=== PATIENT | female | born 1995 | race Caucasian/White ===

== ENCOUNTER 2020-10-10 21:13 | Inpatient (IN) ==
[2020-10-10] MEDS ORDERED: LACTATED RINGER'S 1,000 ML IV SCH ×2 (21:45→22:45)
--- NOTE | 2020-10-10 21:59 | History & Physical Report ---
Date of Service October 10, 2020 Assessment & Plan (1) premature rupture of membranes: Plan: 25-year-old G1, P0 at 36 weeks and 4 days of gestation presenting with premature rupture of membranes, not in labor, breech presentation which is high in pelvis, unengaged, Vital signs stable afebrile, heart rate reassuring, GBS unknown, Discussed with the patient about risk of breech vaginal delivery including but not limited to cervical spine injury, asphyxia, even . Recommended primary . Discussed risk of as major surgery, including but not limited to bleeding, infection, injury to surrounding organs, like bowels, b ladder, ureter, DVT, PE, scarring and adhesion. Patient understands all and signed an informed consent. All questions were answered. Patient will be prepared for primary and delivery of breech . (2) Labor presentation, breech: History of Present Illness Chief Complaint: Leakage of fluids Primary Care Provider: NO PCP Patient is a 25-year-old G1, P0 at 36 weeks and 4 days of gestation who felt a gush of leakage of fluid at 7:30 PM last night. She stood up and kept trickling more clear fluid since then. She denies contractions, vaginal bleeding, abdominal pain, fever chills, nausea vomiting, headaches or change in her vision. She reports good movements. Her has been uncomplicated except, 1) rubella nonimmune, 2) abnormal Glucola, 50 g screening test was elevated at 140 mg/dL and 3-hour OGTT had 1 elevated number. She has not had growth scan and was scheduled for next week. 3) GBS unknown, collected yesterday, 4) Breech presentation Allergies Allergy/AdvReac Type Severity Reaction Status Date / Time No Known Allergies Allergy Verified 10/10/20 21:29 Home Medications Medication Instructions Recorded Confirmed Type prenat.vits,carlos,[id number] 1 tab PO DAILY 10/10/20 10/10/20 History Patient History Surgical History Hx of cholecystectomy [place] teeth removed Social History Smoking Status: Never smoker Hx Alcohol Use: No Hx Substance Use: No Preferred Language: Italian Communication Ability: Effective Transitions Manager Rn Required: No Beliefs That Will Affect Care: None marital status: Current Living Situation: Spouse Other Information That Helps Us Care for You: No Feels Safe at Home: Yes Safety Concerns: Feels Safe At This Time Assistive Devices: None 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 History Patient denies any history of STDs including chlamydia gonorrhea or herpes Review of Systems as per Subjective / HPI Physical Exam Constitutional: WD/WN, vitals as above well developed and well nourished Gastrointestinal (Abdomen): normal bowel sounds, soft, nontender, no hepatosplenomegaly (Gravid) Genitourinary: normal external appearance (Grossly ruptured, clear amniotic fluid, nitrazine positive) OB Exam Abdomen: + breech (Confirmed with bedside ultrasound, deangelo breech) Manual OB Exam: + cervical dilation 1 cm, + cervical effacement 50% and + station high OB Exam Monitor Tracing: + external uterine monitor used and + category I Results & Data ([facility]) Vital Signs (Past 12 Hours) Vital Signs Temp Pulse Resp BP 10/10/20 21:35 100 H 126/78 10/10/20 21:34 97 H 144/92 H 10/10/20 21:33 110 H 135/101 H 10/10/20 21:23 36.8 C 107 H 18 151/91 H
[2020-10-10] MEDS ORDERED: AZITHROMYCIN 500 MG in DEXTROSE 5% 250 ML IV SCH (22:00)
[2020-10-10] MEDS ORDERED: ceFAZolin 2000MG 2,000 MG/15 ML SYR IV SCH (22:00)
[2020-10-10] MEDS ORDERED: MoRPHine SULFATE PF 1 MG/ML 10 ML AMP/VIAL ONE (22:08)
[2020-10-10] MEDS ORDERED: CITRIC ACID/SODIUM CITRATE 15 ML UDC ONE (22:22)
--- NOTE | 2020-10-10 22:23 | Anesthesiology Consultation ---
Date of Service October 10, 2020 Assessment & Plan Chart Review Chart Review: Acceptable Risk for Surgery Consults Requested none History Surgery Operation Date: 10/10/20 23:00 Proposed Procedures p Section in LD - Mikie Mota MD Height/Weight Height: 5 ft 6 in Weight: 101.605 kg Allergies Allergy/AdvReac Type Severity Reaction Status Date / Time No Known Allergies Allergy Verified 10/10/20 21:29 Medications Home Medications Medication Instructions Recorded Confirmed Last Taken prenat.vits,carlos,hfj-mesv-mrthf 1 tab PO DAILY 10/10/20 10/10/20 10/09/20 08:00 Active Medications Generic Name Dose Route Start Last Admin Trade Name Freq PRN Reason Stop Dose Admin Lactated Ringer's 1,000 mls @ 125 mls/hr 10/10/20 22:45 10/10/20 21:56 Lr IV 11/09/20 22:44 999 mls/hr .Q8H ERNESTINE Administration Azithromycin 500 mg/ Dextrose 255 mls @ 127.5 mls/hr 10/10/20 22:00 10/10/20 22:13 IV 10/10/20 23:59 127.5 mls/hr PREOP ERNESTINE Administration NPO Date Last Intake of Fluids: 10/10/20 Time Last Intake of Fluids: 19:00 Date Last Intake of Solids: 10/10/20 Time Last Intake of Solids: 19:00 Past Surgical History Surgical History Hx of cholecystectomy [place] teeth removed Social History Smoking Status: Never smoker Hx Alcohol Use: No Hx Substance Use: No Physical Exam Vital Signs Last Vital Signs Temp 36.8 C 10/10/20 21:40 Pulse 100 H 10/10/20 21:35 Resp 18 10/10/20 21:40 BP 126/78 10/10/20 21:35
[2020-10-10] MEDS ORDERED: NALBUPHINE HCL INJ 10 MG/ML AMP IV PRN (22:25)
[2020-10-10] MEDS ORDERED: NALOXONE HCL 1 MG in SODIUM CHLORIDE 0.9% 1000ML 1,000 ML IV PRN (22:25)
[2020-10-10] MEDS ORDERED: NALOXONE HCL 0.4 MG/1 ML VIAL/CARP IV PRN (22:25)
[2020-10-10] MEDS ORDERED: diphenhydrAMINE 50 MG/ML VIAL IV PRN (22:25)
[2020-10-10] MEDS ORDERED: HYDROmorphone INJ 0.5 MG/0.5 ML SYR IV PRN (22:25)
[2020-10-10] MEDS ORDERED: MoRPHine SULFATE PF 1 MG/ML 10 ML AMP/VIAL INT SPINAL ONE (22:25)
[2020-10-10] MEDS ORDERED: MoRPHine SULFATE 2 MG/ML CARP IV PRN (22:25)
[2020-10-10] MEDS ORDERED: ONDANSETRON INJ 2 MG/ML 2 ML VIAL IV PRN (22:25)
[2020-10-10] MEDS ORDERED: LACTATED RINGER'S 500 ML IV PRN (22:25)
[2020-10-10] MEDS ORDERED: ePHEDrine sulfate 50 MG/ML AMP IV PRN (22:25)
[2020-10-10] MEDS ORDERED: NALOXONE HCL 0.08 MG in SYRINGE 1.8 ML IV PRN (22:25)
[2020-10-10] MEDS ORDERED: METOCLOPRAMIDE HCL 10 MG in SODIUM CHLORIDE 0.9% 50 ML IV PRN (22:25)
[2020-10-10] MEDS ORDERED: MEPERIDINE HCL 25 MG/ML CARP/VIAL IV PRN (22:25)
[2020-10-10] MEDS ORDERED: PROMETHAZINE HCL 12.5 MG in SODIUM CHLORIDE 0.9% 50 ML IV PRN (22:25)
[2020-10-10 22:29] LABS: Basophils # (auto) 0.04 K/uL (0-0.2); Basophils % (auto) 0.2 %; Eosinophils # (auto) 1.39 K/uL (0-0.5); Eosinophils % (auto) 7.7 %; Hematocrit (blood only) 37.8 % (37-47); Immature Granulocytes # (auto) 0.16 K/uL (0.00-0.02); Immature Granulocytes % (auto) 0.9 %; Lymphocytes # (auto) 2.94 K/uL (1.2-3.4); Lymphocytes % (auto) 16.4 %; Mean Corpuscular Hemoglobin 32.3 pg (25-34); Mean Corpuscular Hgb Conc 34.4 g/dL (32-36); Mean Corpuscular Volume 93.8 fL (80-100); Mean Platelet Volume 9.6 fL (7.4-10.4); Monocytes # (auto) 0.94 K/uL (0.11-0.59); Monocytes % (auto) 5.2 %; Neutrophils # (auto) 12.51 K/uL (1.4-6.5); Neutrophils % (auto) 69.6 %; Platelet Count 260 K/uL (130-400); RDW Coefficient of Variation 13.4 % (11.5-14.5); RDW Standard Deviation 46.4 fL (36.4-46.3); Red Blood Count 4.03 M/uL (4.2-5.4); White Blood Count 17.98 K/uL (4.8-10.8)
[2020-10-10] MEDS ORDERED: NO NARCOTICS OR SEDATIVES SCH (22:30)
[2020-10-10] MEDS ORDERED: SODIUM CHLORIDE 0.9% 1000ML 1,000 ML IV SCH (22:30)
[2020-10-10] MEDS ORDERED: DC INTRASPINAL MORPHINE SCH (22:30)
[2020-10-10 22:46] LABS: Albumin Level 2.7 gm/dl (3.4-5.0); BUN Creatinine Ratio 13.9 (10-20); Calcium 9.3 mg/dl (8.5-10.1); Creatinine Clr Calc Pharmacy 125.5 ml/min; Est GFR (African American) 115.4 ml/min; Est GFR (Non-African American) 99.5 ml/min; Potassium 3.8 mmol/L (3.5-5.1)
[2020-10-10 22:49] LABS: Albumin Globulin Ratio 0.7 (0.9-2); Bilirubin,Total 0.2 mg/dl (0.2-1); Globulin 3.9 gm/dl (2.5-4.0); Total Protein 6.6 gm/dl (6.4-8.2)
[2020-10-11] MEDS ORDERED: PHENYLEPHRINE HCL 10 MG/ML VIAL ONE (00:16)
[2020-10-11] MEDS ORDERED: ePHEDrine sulfate 50 MG/ML AMP ONE (00:16)
[2020-10-11] MEDS ORDERED: OXYTOCIN 10 UNITS/ML VIAL ONE (00:17)
[2020-10-11] MEDS ORDERED: BENZOCAINE 20% AER SPR 82.5 GM CAN EXT PRN (00:29)
[2020-10-11] MEDS ORDERED: DIPHTHERIA/TETANUS/PERTUSSIS 0.5 ML SYR/VIAL IM ONE (00:29)
[2020-10-11] MEDS ORDERED: SENNA 8.6 MG TAB PO PRN (00:29)
[2020-10-11] MEDS ORDERED: MAGNESIUM HYDROXIDE SUSP 30 ML UDC PO PRN (00:29)
[2020-10-11] MEDS ORDERED: HYDROCORTISONE ACETATE 25 MG SUPP PR PRN (00:29)
[2020-10-11] MEDS ORDERED: SUPERCREAM 0.870% 15 GM JAR EXT PRN (00:29)
[2020-10-11] MEDS ORDERED: MEASLES, MUMPS & RUBELLA VIRUS VIAL SQ ONE (00:29)
--- NOTE | 2020-10-11 00:29 | Post Operative Brief Note ---
Immediate Post Op Note v1 Date of Surgery October 11, 2020 Pre & Post Diagnosis Operation Date: 10/10/20 23:00 Pre-Op Diagnosis: 1. Martin breech 2. premature rupture of membranes Post-Op Diagnosis: Same as preop I identified the patient and participated in the time-out.: Yes Procedure Operation Date: 10/10/20 23:00 Actual Procedures p Section in OR(Not Applicable) - Mikie Mota MD Surgeon Mikie Mota MD Instrumentation Specialist Nani Marie RN Estimated Blood Loss 600 Findings Consistent with Post-Op Diagnosis Drains Jaramillo Catheter (Inserted after spinal, anesthesia to monitor) Complications none Disposition Accompanied Patient To Recovery: Yes
[2020-10-11] MEDS: KETOROLAC 30 MG/ML VIAL IV PRN ×3 (00:37→16:21)
[2020-10-11] MEDS ORDERED: GELATIN SPONGE SZ 100 ONE (01:55)
[2020-10-11] MEDS: OXYTOCIN 20 UNITS in LACTATED RINGER'S 1,000 ML IV SCH ×2 (02:40→10:59)
--- NOTE | 2020-10-11 04:49 | Operative Report (OR) ---
DATE OF SURGERY: 10/10/2020. PREOPERATIVE DIAGNOSIS: The patient is a 25-year-old G1, P0 at 36 weeks and 4 days of gestation presenting to labor and delivery with premature rupture of membranes and deangelo breech presentation. POSTOPERATIVE DIAGNOSIS: The patient is a 25-year-old G1, P0 at 36 weeks and 4 days of gestation presenting to labor and delivery with premature rupture of membranes and deangelo breech presentation. PROCEDURE: Primary low transverse with Pfannenstiel skin incision and delivery of a breech . SURGEON: Mikie Mota MD E COMMERCE SOLUTION ARCHITECT: Nani Marie RN ESTIMATED BLOOD LOSS: 600. DRAINS: Jaramillo catheter drained 300 mL of clear urine. ANESTHESIA: Spinal. ANESTHESIOLOGIST: Dr. Benítez. COMPLICATIONS: None. FINDINGS: Baby was a viable female delivered at 2332 hours. Apgars were 8/9, weight was 3066 grams. Baby was in deangelo breech presentation. Maternal findings, normal uterus, fallopian tubes, and ovaries. DETAILS OF SURGERY: The patient was taken to the operating room where spinal anesthesia was given without difficulty. She was placed in dorsal supine position with a leftward tilt. She was prepared and draped in the usual sterile fashion. Pfannenstiel skin incision was made, carried through to the underlying layer of fascia with the Bovie. Fascia was incised in the midline and incision was extended laterally with the help of Webber scissors. Lower aspect of the fascial incision was grasped with 2 Viania clamps and elevated. The underlying rectus muscles were dissected off sharply and bluntly with fingers and Webber scissors. Upper aspect of the fascial incision was then grasped with two Ivania clamps, elevated, and the underlying rectus muscles were dissected off sharply with Webber scissors and bluntly with fingers. Rectus muscles were in the midline. The peritoneum was then entered bluntly with fingers. Peritoneal incision was extended superiorly and inferiorly with good visualization of the bladder. An Biju abdominal retractor was placed into the abdomen to retract the abdominal wall. Vesicouterine peritoneum was identified, grasped with pickups, entered sharply with Metzenbaum scissors. Bladder flap was created digitally and bladder blade was inserted. Lower uterine segment was incised in a transverse fashion and the incision was extended laterally with bandage scissors. Membranes were ruptured, clear fluid was obtained. Baby was breech, buttocks were brought to the incision and delivered without difficulty and then legs were delivered and then arms in flexion position and the head without difficulty. Mouth and nose were suctioned. Cord was clamped x2 and cut at 1- minute delay. Baby was handed to waiting carpenter refrigerator. Cord blood was obtained. Placenta was delivered manually as intact and complete. Uterus was exteriorized and cleared of all clots and debris. The uterine incision was repaired with 0 Vicryl in a running locked fashion. Second imbricating layer was placed with another 0 Vicryl in a running locked fashion. Excellent hemostasis was achieved. Cul-de-sac was irrigated with warm normal saline and suctioned and normal cul-de-sac and peritoneal surfaces, ovaries, fallopian tubes, and bowels and omentum were seen. Uterus was returned to the abdomen. Pelvis was irrigated with warm normal saline and suctioned. Uterus incision was checked to be hemostatic again. Then parietal peritoneum and the rectus muscles were reapproximated with 3-0 Vicryl in a running fashion. The fascia and rectus muscles were hemostatic. Rectus fascia was reapproximated with 0 Vicryl in a running fashion. Subcuticular fat tissue was brought together with 2-0 Vicryl in a running fashion. Skin was closed with 4-0 Monocryl in a subcuticular fashion. The patient tolerated the procedure well. Sponge, lap, needle count was correct x3. No complications happened. I was present during whole procedure. She was given 500 mg of azithromycin and 2 g of cefazolin before surgery. She was taken to recovery room in stable condition. Job ID: [id number] [facility]
[2020-10-11] MEDS ORDERED: CITRIC ACID/SODIUM CITRATE 15 ML UDC PO SCH (06:00)
--- NOTE | 2020-10-11 06:41 | Anesthesiology Progress Note ---
Date of Service October 11, 2020 Anesthesia Post Procedure Vital Signs Vital Signs: Temp Pulse Pulse Resp BP BP Pulse Ox 10/11/20 06:10 16 97 10/11/20 05:30 16 96 10/11/20 04:35 16 97 10/11/20 03:30 16 94 10/11/20 02:45 36.4 C L 96 H 16 112/76 98 10/11/20 02:34 95 H 98 10/11/20 02:29 94 H 130/65 96 10/11/20 02:28 36.5 C 18 10/11/20 02:24 98 H 100 10/11/20 02:19 95 H 97 10/11/20 02:14 99 H 99 10/11/20 02:09 105 H 97 10/11/20 02:04 108 H 96 10/11/20 02:02 109 H 129/71 10/11/20 02:00 108 H 202/72 H 10/11/20 01:59 108 H 97 10/11/20 01:58 18 10/11/20 01:56 102 H 93 10/11/20 01:54 113 H 96 10/11/20 01:49 106 H 96 10/11/20 01:44 109 H 97 10/11/20 01:39 96 H 98 10/11/20 01:34 98 H 96 10/11/20 01:29 107 H 97 10/11/20 01:28 100 H 18 130/60 10/11/20 01:24 100 H 96 10/11/20 01:21 102 H 94 10/11/20 01:19 96 H 95 10/11/20 01:18 94 H 18 124/65 10/11/20 01:15 106 H 94 10/11/20 01:14 103 H 95 10/11/20 01:09 107 H 98 10/11/20 01:08 102 H 18 119/55 L 10/11/20 01:04 100 H 96 10/11/20 00:59 101 H 130/59 L 98 10/11/20 00:58 18 10/11/20 00:54 107 H 98 10/11/20 00:49 102 H 112/58 L 95 10/11/20 00:48 97 H 18 90 10/11/20 00:44 94 H 98 10/11/20 00:39 92 H 97 10/11/20 00:38 106 H 18 119/78 10/11/20 00:34 90 100 10/11/20 00:33 36.5 C 10/11/20 00:29 85 98 10/11/20 00:28 79 127/70 10/10/20 21:40 36.8 C 18 10/10/20 21:35 100 H 126/78 10/10/20 21:34 97 H 144/92 H 10/10/20 21:33 110 H 135/101 H 10/10/20 21:23 36.8 C 107 H 18 151/91 H Pain Intensity Bilateral Lower Abdomen: Pain Intensity: 2 Transfer of Care Handoff Completed per policy Notes Mental Status: alert / awake / arousable and participated in evaluation Patient Amnestic to Procedure: Yes Nausea / Vomiting: adequately controlled Pain: adequately controlled Airway Patency, RR, SpO2: stable & adequate BP & HR: stable & adequate Hydration State: stable & adequate Neuraxial Anesthesia: was administered and sensory block resolved Anesthetic Complications: no major complications apparent
[2020-10-11 08:09] LABS: Basophils # (auto) 0.02 K/uL (0-0.2); Basophils % (auto) 0.1 %; Eosinophils # (auto) 0.38 K/uL (0-0.5); Eosinophils % (auto) 1.8 %; Hematocrit (blood only) 31.5 % (37-47); Hemoglobin 10.7 g/dL (12.0-16.0); Immature Granulocytes # (auto) 0.09 K/uL (0.00-0.02); Immature Granulocytes % (auto) 0.4 %; Lymphocytes # (auto) 3.07 K/uL (1.2-3.4); Lymphocytes % (auto) 14.2 %; Mean Corpuscular Hemoglobin 32.2 pg (25-34); Mean Corpuscular Volume 94.9 fL (80-100); Mean Platelet Volume 9.6 fL (7.4-10.4); Monocytes # (auto) 1.08 K/uL (0.11-0.59); Neutrophils # (auto) 17.05 K/uL (1.4-6.5); Neutrophils % (auto) 78.5 %; Platelet Count 231 K/uL (130-400); RDW Coefficient of Variation 13.5 % (11.5-14.5); RDW Standard Deviation 46.8 fL (36.4-46.3); Red Blood Count 3.32 M/uL (4.2-5.4); White Blood Count 21.69 K/uL (4.8-10.8)
[2020-10-11] MEDS: PRENATAL VITAMIN 1 TAB PO SCH (09:05)
[2020-10-11] MEDS: SIMETHICONE 80 MG CHEW PO SCH ×3 (09:05→20:35)
[2020-10-11] MEDS: FERROUS SULFATE 325 MG TAB PO SCH (09:06)
[2020-10-11] MEDS: DOCUSATE SODIUM 100 MG CAP PO SCH ×2 (09:06→20:36)
--- NOTE | 2020-10-11 10:56 | Obstetrical Progress Note ---
Date of Service October 11, 2020 Subjective Voiding: boyer catheter in place Passing Gas:: No Lochia:: Small Feeding Type:: breast feeding Current Pain Level(1-10): 2 still in bed with Boyer Physical Exam abdomen soft and non-tender incision c/d/i no edema neg Lilly's Constitutional WD/WN, vitals as above Results & Data ([facility]) Vital Signs (Past 12 Hours) Vital Signs Temp Pulse Pulse Resp BP BP Pulse Ox 10/11/20 10:45 18 97 10/11/20 09:45 16 94 10/11/20 08:30 18 95 10/11/20 07:20 37.0 C 98 H 18 115/74 96 10/11/20 06:10 16 97 10/11/20 05:30 16 96 10/11/20 04:35 16 97 10/11/20 03:30 16 94 10/11/20 02:45 36.4 C L 96 H 16 112/76 98 10/11/20 02:34 95 H 98 10/11/20 02:29 94 H 130/65 96 10/11/20 02:28 36.5 C 18 10/11/20 02:24 98 H 100 10/11/20 02:19 95 H 97 10/11/20 02:14 99 H 99 10/11/20 02:09 105 H 97 10/11/20 02:04 108 H 96 10/11/20 02:02 109 H 129/71 10/11/20 02:00 108 H 202/72 H 10/11/20 01:59 108 H 97 10/11/20 01:58 18 10/11/20 01:56 102 H 93 10/11/20 01:54 113 H 96 10/11/20 01:49 106 H 96 10/11/20 01:44 109 H 97 10/11/20 01:39 96 H 98 10/11/20 01:34 98 H 96 10/11/20 01:29 107 H 97 10/11/20 01:28 100 H 18 130/60 10/11/20 01:24 100 H 96 10/11/20 01:21 102 H 94 10/11/20 01:19 96 H 95 10/11/20 01:18 94 H 18 124/65 10/11/20 01:15 106 H 94 10/11/20 01:14 103 H 95 10/11/20 01:09 107 H 98 10/11/20 01:08 102 H 18 119/55 L 10/11/20 01:04 100 H 96 10/11/20 00:59 101 H 130/59 L 98 10/11/20 00:58 18 10/11/20 00:54 107 H 98 10/11/20 00:49 102 H 112/58 L 95 10/11/20 00:48 97 H 18 90 10/11/20 00:44 94 H 98 10/11/20 00:39 92 H 97 10/11/20 00:38 106 H 18 119/78 10/11/20 00:34 90 100 10/11/20 00:33 36.5 C 10/11/20 00:29 85 98 10/11/20 00:28 79 127/70 Laboratory Results 10/10/20 10/10/20 10/10/20 21:55 21:55 22:18 WBC RBC Hgb Hct MCV MCH MCHC RDW Std Deviation RDW Coeff of Aryan Plt Count MPV Immature Gran % (Auto) Neut % (Auto) Lymph % (Auto) Rowan % (Auto) Eos % (Auto) Baso % (Auto) Neut # (Auto) Lymph # (Auto) Rowan # (Auto) Eos # (Auto) Baso # (Auto) Immature Gran # (Auto) Sodium Potassium Chloride Carbon Dioxide Anion Gap BUN Creatinine Est Cr Clr Drug Dosing Est GFR ( Amer) Est GFR (Non-Af Amer) BUN/Creatinine Ratio Glucose Calcium Total Bilirubin AST ALT Alkaline Phosphatase Total Protein Albumin Globulin Albumin/Globulin Ratio COVID-19 Eval Order Covid19 IDNow [facility] SARS-CoV-2, RNA, NAAT NEGATIVE Blood Type A Positive Antibody Screen NEGATIVE 10/10/20 10/10/20 10/11/20 22:18 22:18 07:46 WBC 17.98 H 21.69 H RBC 4.03 L 3.32 L Hgb 13.0 10.7 L Hct 37.8 31.5 L MCV 93.8 94.9 MCH 32.3 32.2 MCHC 34.4 34.0 RDW Std Deviation 46.4 H 46.8 H RDW Coeff of Aryan 13.4 13.5 Plt Count 260 231 MPV 9.6 9.6 Immature Gran % (Auto) 0.9 0.4 Neut % (Auto) 69.6 78.5 Lymph % (Auto) 16.4 14.2 Rowan % (Auto) 5.2 5.0 Eos % (Auto) 7.7 1.8 Baso % (Auto) 0.2 0.1 Neut # (Auto) 12.51 H 17.05 H Lymph # (Auto) 2.94 3.07 Rowan # (Auto) 0.94 H 1.08 H Eos # (Auto) 1.39 H 0.38 Baso # (Auto) 0.04 0.02 Immature Gran # (Auto) 0.16 H 0.09 H Sodium 139 Potassium 3.8 Chloride 108 H Carbon Dioxide 22 Anion Gap 9.0 BUN 11 Creatinine 0.81 Est Cr Clr Drug Dosing 125.5 Est GFR ( Amer) 115.4 Est GFR (Non-Af Amer) 99.5 BUN/Creatinine Ratio 13.9 Glucose 80 Calcium 9.3 Total Bilirubin 0.2 AST 16 ALT 19 Alkaline Phosphatase 138 H Total Protein 6.6 Albumin 2.7 L Globulin 3.9 Albumin/Globulin Ratio 0.7 L COVID-19 Eval Order SARS-CoV-2, RNA, NAAT Blood Type Antibody Screen
[2020-10-11] MEDS ORDERED: oxyCODONE/ACETAMINOPHEN 5mg/325mg TAB PO PRN (16:25)
[2020-10-11] MEDS ORDERED: MEPERIDINE HCL 50 MG/ML CARP IV PRN (16:25)
[2020-10-11] MEDS ORDERED: diphenhydrAMINE 50 MG/ML VIAL IV PRN (16:25)
[2020-10-11] MEDS ORDERED: diphenhydrAMINE Capsule 25 MG CAP PO PRN (16:25)
[2020-10-11] MEDS ORDERED: KETOROLAC 30 MG/ML VIAL IV PRN (16:25)
[2020-10-11] MEDS ORDERED: PROMETHAZINE HCL 25 MG in SODIUM CHLORIDE 0.9% 50 ML IV PRN (16:25)
[2020-10-11] MEDS ORDERED: ONDANSETRON INJ 2 MG/ML 2 ML VIAL IV PRN (16:25)
[2020-10-12] MEDS: IBUPROFEN 600 MG TAB PO PRN ×5 (02:13→21:21)
[2020-10-12 06:53] LABS: Basophils # (auto) 0.04 K/uL (0-0.2); Basophils % (auto) 0.2 %; Eosinophils # (auto) 1.38 K/uL (0-0.5); Hematocrit (blood only) 31.4 % (37-47); Hemoglobin 10.4 g/dL (12.0-16.0); Immature Granulocytes % (auto) 0.5 %; Lymphocytes # (auto) 3.53 K/uL (1.2-3.4); Mean Corpuscular Hemoglobin 31.6 pg (25-34); Mean Corpuscular Hgb Conc 33.1 g/dL (32-36); Mean Corpuscular Volume 95.4 fL (80-100); Mean Platelet Volume 9.5 fL (7.4-10.4); Monocytes % (auto) 5.1 %; Neutrophils # (auto) 13.59 K/uL (1.4-6.5); Neutrophils % (auto) 69.2 %; Platelet Count 208 K/uL (130-400); RDW Coefficient of Variation 13.9 % (11.5-14.5); RDW Standard Deviation 48.6 fL (36.4-46.3); Red Blood Count 3.29 M/uL (4.2-5.4); White Blood Count 19.64 K/uL (4.8-10.8)
[2020-10-12] MEDS: PRENATAL VITAMIN 1 TAB PO SCH (08:08)
[2020-10-12] MEDS: SIMETHICONE 80 MG CHEW PO SCH ×4 (08:08→21:20)
[2020-10-12] MEDS: FERROUS SULFATE 325 MG TAB PO SCH (08:09)
[2020-10-12] MEDS: DOCUSATE SODIUM 100 MG CAP PO SCH ×2 (08:09→21:20)
--- NOTE | 2020-10-12 08:44 | Obstetrical Progress Note ---
Date of Service October 12, 2020 Assessment & Plan Admission and Anticipated Discharge Date Admission Date: October 10, 2020 Subjective Patient is seen and examined. She feels well, no complaints. Pain is under control with oral meds. Ambulating without dizziness Voiding without difficulty Tolerating regular diet with out N&V Flatus + BM neg Bleeding is minimal No fever/ chills/ CP/ SOB/ N&V/ Leg pain Breast feeding without problems Vital Signs Temp Pulse Resp BP BP Pulse Ox 10/11/20 23:45 37.1 C 97 H 16 116/77 98 10/11/20 19:35 36.7 C 100 H 18 119/77 99 10/11/20 16:20 37.2 C 92 H 18 126/83 93 10/11/20 12:45 18 96 10/11/20 12:10 37.2 C 98 H 18 109/70 10/11/20 11:45 18 95 10/11/20 10:45 18 97 10/11/20 09:45 16 94 Intake and Output 10/11/20 10/12/20 10/12/20 22:59 06:59 14:59 Intake Total 1400 / 2402 Output Total 1100 / 1100 Balance 300 / 1302 Intake: Oral 1400 / 1400 Output: Urine 500 / 500 Urine Amount (Catheter) 600 / 600 Jaramillo/Indwelling 600 / 600 Lab Results 10/10/20 10/10/20 10/10/20 Range/Units 21:55 21:55 22:18 WBC (4.8-10.8) K/uL RBC (4.2-5.4) M/uL Hgb (12.0-16.0) g/dL Hct (37-47) % MCV (80-100) fL MCH (25-34) pg MCHC (32-36) g/dL RDW Std Deviation (36.4-46.3) fL RDW Coeff of Aryan (11.5-14.5) % Plt Count (130-400) K/uL MPV (7.4-10.4) fL Immature Gran % (Auto) % Neut % (Auto) % Lymph % (Auto) % Norton % (Auto) % Eos % (Auto) % Baso % (Auto) % Neut # (Auto) (1.4-6.5) K/uL Lymph # (Auto) (1.2-3.4) K/uL Norton # (Auto) (0.11-0.59) K/uL Eos # (Auto) (0-0.5) K/uL Baso # (Auto) (0-0.2) K/uL Immature Gran # (Auto) (0.00-0.02) K/uL Sodium (136-145) mmol/L Potassium (3.5-5.1) mmol/L Chloride (98-107) mmol/L Carbon Dioxide (21-32) mmol/L Anion Gap (3-11) BUN (7-18) mg/dl Creatinine (0.6-1.2) mg/dl Est Cr Clr Drug Dosing ml/min Est GFR ( Amer) ml/min Est GFR (Non-Af Amer) ml/min BUN/Creatinine Ratio (10-20) Glucose (70-99) mg/dl Calcium (8.5-10.1) mg/dl Total Bilirubin (0.2-1) mg/dl AST (15-37) U/L ALT (12-78) U/L Alkaline Phosphatase (45-117) U/L Total Protein (6.4-8.2) gm/dl Albumin (3.4-5.0) gm/dl Globulin (2.5-4.0) gm/dl Albumin/Globulin Ratio (0.9-2) COVID-19 Eval Order Covid19 IDNow [facility] SARS-CoV-2, RNA, NAAT NEGATIVE (NEGATIVE) Blood Type A Positive Antibody Screen NEGATIVE 10/10/20 10/10/20 10/11/20 Range/Units 22:18 22:18 07:46 WBC 17.98 H 21.69 H (4.8-10.8) K/uL RBC 4.03 L 3.32 L (4.2-5.4) M/uL Hgb 13.0 10.7 L (12.0-16.0) g/dL Hct 37.8 31.5 L (37-47) % MCV 93.8 94.9 (80-100) fL MCH 32.3 32.2 (25-34) pg MCHC 34.4 34.0 (32-36) g/dL RDW Std Deviation 46.4 H 46.8 H (36.4-46.3) fL RDW Coeff of Aryan 13.4 13.5 (11.5-14.5) % Plt Count 260 231 (130-400) K/uL MPV 9.6 9.6 (7.4-10.4) fL Immature Gran % (Auto) 0.9 0.4 % Neut % (Auto) 69.6 78.5 % Lymph % (Auto) 16.4 14.2 % Norton % (Auto) 5.2 5.0 % Eos % (Auto) 7.7 1.8 % Baso % (Auto) 0.2 0.1 % Neut # (Auto) 12.51 H 17.05 H (1.4-6.5) K/uL Lymph # (Auto) 2.94 3.07 (1.2-3.4) K/uL Norton # (Auto) 0.94 H 1.08 H (0.11-0.59) K/uL Eos # (Auto) 1.39 H 0.38 (0-0.5) K/uL Baso # (Auto) 0.04 0.02 (0-0.2) K/uL Immature Gran # (Auto) 0.16 H 0.09 H (0.00-0.02) K/uL Sodium 139 (136-145) mmol/L Potassium 3.8 (3.5-5.1) mmol/L Chloride 108 H (98-107) mmol/L Carbon Dioxide 22 (21-32) mmol/L Anion Gap 9.0 (3-11) BUN 11 (7-18) mg/dl Creatinine 0.81 (0.6-1.2) mg/dl Est Cr Clr Drug Dosing 125.5 ml/min Est GFR ( Amer) 115.4 ml/min Est GFR (Non-Af Amer) 99.5 ml/min BUN/Creatinine Ratio 13.9 (10-20) Glucose 80 (70-99) mg/dl Calcium 9.3 (8.5-10.1) mg/dl Total Bilirubin 0.2 (0.2-1) mg/dl AST 16 (15-37) U/L ALT 19 (12-78) U/L Alkaline Phosphatase 138 H (45-117) U/L Total Protein 6.6 (6.4-8.2) gm/dl Albumin 2.7 L (3.4-5.0) gm/dl Globulin 3.9 (2.5-4.0) gm/dl Albumin/Globulin Ratio 0.7 L (0.9-2) COVID-19 Eval Order SARS-CoV-2, RNA, NAAT (NEGATIVE) Blood Type Antibody Screen 10/12/20 Range/Units 06:23 WBC 19.64 H (4.8-10.8) K/uL RBC 3.29 L (4.2-5.4) M/uL Hgb 10.4 L (12.0-16.0) g/dL Hct 31.4 L (37-47) % MCV 95.4 (80-100) fL MCH 31.6 (25-34) pg MCHC 33.1 (32-36) g/dL RDW Std Deviation 48.6 H (36.4-46.3) fL RDW Coeff of Aryan 13.9 (11.5-14.5) % Plt Count 208 (130-400) K/uL MPV 9.5 (7.4-10.4) fL Immature Gran % (Auto) 0.5 % Neut % (Auto) 69.2 % Lymph % (Auto) 18.0 % Norton % (Auto) 5.1 % Eos % (Auto) 7.0 % Baso % (Auto) 0.2 % Neut # (Auto) 13.59 H (1.4-6.5) K/uL Lymph # (Auto) 3.53 H (1.2-3.4) K/uL Norton # (Auto) 1.00 H (0.11-0.59) K/uL Eos # (Auto) 1.38 H (0-0.5) K/uL Baso # (Auto) 0.04 (0-0.2) K/uL Immature Gran # (Auto) 0.10 H (0.00-0.02) K/uL Sodium (136-145) mmol/L Potassium (3.5-5.1) mmol/L Chloride (98-107) mmol/L Carbon Dioxide (21-32) mmol/L Anion Gap (3-11) BUN (7-18) mg/dl Creatinine (0.6-1.2) mg/dl Est Cr Clr Drug Dosing ml/min Est GFR ( Amer) ml/min Est GFR (Non-Af Amer) ml/min BUN/Creatinine Ratio (10-20) Glucose (70-99) mg/dl Calcium (8.5-10.1) mg/dl Total Bilirubin (0.2-1) mg/dl AST (15-37) U/L ALT (12-78) U/L Alkaline Phosphatase (45-117) U/L Total Protein (6.4-8.2) gm/dl Albumin (3.4-5.0) gm/dl Globulin (2.5-4.0) gm/dl Albumin/Globulin Ratio (0.9-2) COVID-19 Eval Order SARS-CoV-2, RNA, NAAT (NEGATIVE) Blood Type Antibody Screen PE: General: Alert, orientedx3, NAD CVS: S1S2 RRR Lungs; CTAB Abd: soft, NT, ND, BS+, fundus firm, below Umbilicus Incision: Clean, dry, intact Perineum intact, Lochia rubra minimal Ext; NT, no edema AP: 25 yo s/p C Section, pod# 2 VSS Afebrile doing well Elevated WBCC, afebrile, will recheck in am Continue routine postop care Encourage ambulation, PO intake All questions were answered D/C home tomorrow Results & Data ([facility]) Vital Signs (Past 12 Hours) Vital Signs Temp Pulse Resp BP Pulse Ox 10/11/20 23:45 37.1 C 97 H 16 116/77 98
[2020-10-12] MEDS ORDERED: bisacodyL 5 MG TABEC PO SCH (20:00)
[2020-10-13] MEDS ORDERED: bisacodyL 10 MG SUPP PR PRN (00:30)
[2020-10-13 06:14] LABS: Basophils # (auto) 0.03 K/uL (0-0.2); Basophils % (auto) 0.2 %; Eosinophils # (auto) 2.58 K/uL (0-0.5); Eosinophils % (auto) 15.9 %; Hematocrit (blood only) 30.1 % (37-47); Hemoglobin 9.9 g/dL (12.0-16.0); Immature Granulocytes # (auto) 0.08 K/uL (0.00-0.02); Immature Granulocytes % (auto) 0.5 %; Lymphocytes % (auto) 19.7 %; Mean Corpuscular Hemoglobin 31.7 pg (25-34); Mean Corpuscular Hgb Conc 32.9 g/dL (32-36); Mean Corpuscular Volume 96.5 fL (80-100); Mean Platelet Volume 9.1 fL (7.4-10.4); Monocytes # (auto) 0.86 K/uL (0.11-0.59); Monocytes % (auto) 5.3 %; Neutrophils # (auto) 9.52 K/uL (1.4-6.5); Neutrophils % (auto) 58.4 %; Platelet Count 224 K/uL (130-400); RDW Standard Deviation 48.5 fL (36.4-46.3); Red Blood Count 3.12 M/uL (4.2-5.4); White Blood Count 16.27 K/uL (4.8-10.8)
[2020-10-13] MEDS: IBUPROFEN 600 MG TAB PO PRN ×2 (06:30→10:07)
--- NOTE | 2020-10-13 09:50 | Obstetrical Progress Note ---
Date of Service October 13, 2020 Assessment & Plan Admission and Anticipated Discharge Date Admission Date: October 10, 2020 Subjective Patient is seen and examined. She feels well, no complaints. Pain is under control with oral meds. Ambulating without dizziness Voiding without difficulty Tolerating regular diet with out N&V Flatus + BM + Bleeding is minimal No fever/ chills/ CP/ SOB/ N&V/ Leg pain Breast feeding without problems Vital Signs Temp Pulse Resp BP Pulse Ox 10/12/20 23:50 36.4 C L 86 18 116/81 10/12/20 21:10 36.8 C 91 H 18 106/71 97 10/12/20 16:00 36.9 C 96 H 18 121/86 Lab Results 10/10/20 10/10/20 10/10/20 Range/Units 21:55 21:55 22:18 WBC (4.8-10.8) K/uL RBC (4.2-5.4) M/uL Hgb (12.0-16.0) g/dL Hct (37-47) % MCV (80-100) fL MCH (25-34) pg MCHC (32-36) g/dL RDW Std Deviation (36.4-46.3) fL RDW Coeff of Aryan (11.5-14.5) % Plt Count (130-400) K/uL MPV (7.4-10.4) fL Immature Gran % (Auto) % Neut % (Auto) % Lymph % (Auto) % [place] % (Auto) % Eos % (Auto) % Baso % (Auto) % Neut # (Auto) (1.4-6.5) K/uL Lymph # (Auto) (1.2-3.4) K/uL [place] # (Auto) (0.11-0.59) K/uL Eos # (Auto) (0-0.5) K/uL Baso # (Auto) (0-0.2) K/uL Immature Gran # (Auto) (0.00-0.02) K/uL Sodium (136-145) mmol/L Potassium (3.5-5.1) mmol/L Chloride (98-107) mmol/L Carbon Dioxide (21-32) mmol/L Anion Gap (3-11) BUN (7-18) mg/dl Creatinine (0.6-1.2) mg/dl Est Cr Clr Drug Dosing ml/min Est GFR ( Amer) ml/min Est GFR (Non-Af Amer) ml/min BUN/Creatinine Ratio (10-20) Glucose (70-99) mg/dl Calcium (8.5-10.1) mg/dl Total Bilirubin (0.2-1) mg/dl AST (15-37) U/L ALT (12-78) U/L Alkaline Phosphatase (45-117) U/L Total Protein (6.4-8.2) gm/dl Albumin (3.4-5.0) gm/dl Globulin (2.5-4.0) gm/dl Albumin/Globulin Ratio (0.9-2) COVID-19 Eval Order Covid19 [facility]Now [facility] SARS-CoV-2, RNA, NAAT NEGATIVE (NEGATIVE) Blood Type A Positive Antibody Screen NEGATIVE 10/10/20 10/10/20 10/11/20 Range/Units 22:18 22:18 07:46 WBC 17.98 H 21.69 H (4.8-10.8) K/uL RBC 4.03 L 3.32 L (4.2-5.4) M/uL Hgb 13.0 10.7 L (12.0-16.0) g/dL Hct 37.8 31.5 L (37-47) % MCV 93.8 94.9 (80-100) fL MCH 32.3 32.2 (25-34) pg MCHC 34.4 34.0 (32-36) g/dL RDW Std Deviation 46.4 H 46.8 H (36.4-46.3) fL RDW Coeff of Aryan 13.4 13.5 (11.5-14.5) % Plt Count 260 231 (130-400) K/uL MPV 9.6 9.6 (7.4-10.4) fL Immature Gran % (Auto) 0.9 0.4 % Neut % (Auto) 69.6 78.5 % Lymph % (Auto) 16.4 14.2 % [place] % (Auto) 5.2 5.0 % Eos % (Auto) 7.7 1.8 % Baso % (Auto) 0.2 0.1 % Neut # (Auto) 12.51 H 17.05 H (1.4-6.5) K/uL Lymph # (Auto) 2.94 3.07 (1.2-3.4) K/uL [place] # (Auto) 0.94 H 1.08 H (0.11-0.59) K/uL Eos # (Auto) 1.39 H 0.38 (0-0.5) K/uL Baso # (Auto) 0.04 0.02 (0-0.2) K/uL Immature Gran # (Auto) 0.16 H 0.09 H (0.00-0.02) K/uL Sodium 139 (136-145) mmol/L Potassium 3.8 (3.5-5.1) mmol/L Chloride 108 H (98-107) mmol/L Carbon Dioxide 22 (21-32) mmol/L Anion Gap 9.0 (3-11) BUN 11 (7-18) mg/dl Creatinine 0.81 (0.6-1.2) mg/dl Est Cr Clr Drug Dosing 125.5 ml/min Est GFR ( Amer) 115.4 ml/min Est GFR (Non-Af Amer) 99.5 ml/min BUN/Creatinine Ratio 13.9 (10-20) Glucose 80 (70-99) mg/dl Calcium 9.3 (8.5-10.1) mg/dl Total Bilirubin 0.2 (0.2-1) mg/dl AST 16 (15-37) U/L ALT 19 (12-78) U/L Alkaline Phosphatase 138 H (45-117) U/L Total Protein 6.6 (6.4-8.2) gm/dl Albumin 2.7 L (3.4-5.0) gm/dl Globulin 3.9 (2.5-4.0) gm/dl Albumin/Globulin Ratio 0.7 L (0.9-2) COVID-19 Eval Order SARS-CoV-2, RNA, NAAT (NEGATIVE) Blood Type Antibody Screen 10/12/20 10/13/20 Range/Units 06:23 06:04 WBC 19.64 H 16.27 H (4.8-10.8) K/uL RBC 3.29 L 3.12 L (4.2-5.4) M/uL Hgb 10.4 L 9.9 L (12.0-16.0) g/dL Hct 31.4 L 30.1 L (37-47) % MCV 95.4 96.5 (80-100) fL MCH 31.6 31.7 (25-34) pg MCHC 33.1 32.9 (32-36) g/dL RDW Std Deviation 48.6 H 48.5 H (36.4-46.3) fL RDW Coeff of Aryan 13.9 14.0 (11.5-14.5) % Plt Count 208 224 (130-400) K/uL MPV 9.5 9.1 (7.4-10.4) fL Immature Gran % (Auto) 0.5 0.5 % Neut % (Auto) 69.2 58.4 % Lymph % (Auto) 18.0 19.7 % [place] % (Auto) 5.1 5.3 % Eos % (Auto) 7.0 15.9 % Baso % (Auto) 0.2 0.2 % Neut # (Auto) 13.59 H 9.52 H (1.4-6.5) K/uL Lymph # (Auto) 3.53 H 3.20 (1.2-3.4) K/uL [place] # (Auto) 1.00 H 0.86 H (0.11-0.59) K/uL Eos # (Auto) 1.38 H 2.58 H (0-0.5) K/uL Baso # (Auto) 0.04 0.03 (0-0.2) K/uL Immature Gran # (Auto) 0.10 H 0.08 H (0.00-0.02) K/uL Sodium (136-145) mmol/L Potassium (3.5-5.1) mmol/L Chloride (98-107) mmol/L Carbon Dioxide (21-32) mmol/L Anion Gap (3-11) BUN (7-18) mg/dl Creatinine (0.6-1.2) mg/dl Est Cr Clr Drug Dosing ml/min Est GFR ( Amer) ml/min Est GFR (Non-Af Amer) ml/min BUN/Creatinine Ratio (10-20) Glucose (70-99) mg/dl Calcium (8.5-10.1) mg/dl Total Bilirubin (0.2-1) mg/dl AST (15-37) U/L ALT (12-78) U/L Alkaline Phosphatase (45-117) U/L Total Protein (6.4-8.2) gm/dl Albumin (3.4-5.0) gm/dl Globulin (2.5-4.0) gm/dl Albumin/Globulin Ratio (0.9-2) COVID-19 Eval Order SARS-CoV-2, RNA, NAAT (NEGATIVE) Blood Type Antibody Screen PE: General: Alert, orientedx3, NAD CVS: S1S2 RRR Lungs; CTAB Abd: soft, NT, ND, BS+, fundus firm, below Umbilicus Incision: Clean, dry, intact Perineum intact, Lochia rubra minimal Ext; NT, no edema AP: 25 yo s/p C Section, pod# 3 VSS Afebrile doing well Continue routine postop care Encourage ambulation, PO intake All questions were answered Discussed when to call D/C home , f/u in office Results & Data ([facility]) Vital Signs (Past 12 Hours) Vital Signs Temp Pulse Resp BP 10/12/20 23:50 36.4 C L 86 18 116/81
[2020-10-13] MEDS: PRENATAL VITAMIN 1 TAB PO SCH (10:08)
[2020-10-13] MEDS: FERROUS SULFATE 325 MG TAB PO SCH (10:08)
[2020-10-13] MEDS: DOCUSATE SODIUM 100 MG CAP PO SCH (10:08)
[2020-10-13] MEDS: SIMETHICONE 80 MG CHEW PO SCH (10:08)
--- NOTE | 2020-10-13 12:13 | Discharge Summary (DS) ---
DATE OF ADMISSION: 10/10/2020 DATE OF DISCHARGE: 10/13/2020 HOSPITAL COURSE: The patient is a 25-year-old G1, P0, at 36 weeks and 4 days of gestation, who presented to labor and delivery on 10/10 with premature rupture of membranes and breech presentation. Decision was made to proceed with primary for delivery of breech . After discussion of pros and cons and the patient signed an informed consent, she was taken to the OR and had primary low transverse with Pfannenstiel skin incision and delivered a viable female infant at 2332 p.m. Her surgery was uncomplicated. See dictated op note for details. On postop period, the patient was doing well, vital signs stable, afebrile. Urine output was adequate. Her physical exam was unremarkable. Abdomen was soft, appropriately tender. Dressing was clean, dry and intact. Her postop H and H was 10.7/31.5. On postop day #2, the patient was doing well, vital signs stable, afebrile. She was ambulating, tolerating regular diet, passing gas. Her physical exam was unremarkable. Abdomen was soft, nontender, nondistended. Bowel sounds are present. Incision was clean, dry and intact. Her bleeding was minimal. Her H and H was stable with an elevated white blood cell count. The patient has been afebrile. On postop day #3, the patient was doing well, vital signs stable, afebrile. Pain was minimal, bleeding was minimal. Her H and H was stable. Her white count decreased from the surgery. The patient wanted to go home. Discharge instructions were given, prescriptions were written for pain, vitamin and she is to be seen in the office in a week. All questions were answered. Job ID: [id number] [facility]
[2020-11-09] MEDS ORDERED: LACTATED RINGER'S 1,000 ML IV SCH (22:45)
== END 2020-10-13 11:00 | disposition home or self-care (01) | DRG 788 ==
LOC: OPB 21:13 → 4S1 21:17 → 4S2 10-11 02:54

== ENCOUNTER 2023-05-28 00:28 | Inpatient (IN) ==
[2023-05-28] MEDS: LACTATED RINGER'S 1,000 ML IV SCH (00:55)
[2023-05-28] MEDS ORDERED: SODIUM CHLORIDE 0.9% 250 ML IV PRN (01:23)
[2023-05-28] MEDS ORDERED: MoRPHine SULFATE PF 1 MG/ML 10 ML AMP/VIAL ONE (01:30)
[2023-05-28] MEDS: CITRIC ACID/SODIUM CITRATE 15 ML UDC PO ONE (01:37)
[2023-05-28] MEDS: ceFAZolin 2000MG 2,000 MG/15 ML SYR IV ONE (01:38)
[2023-05-28 01:42] LABS: Basophils # (auto) 0.04 K/uL (0.00-0.20); Basophils % (auto) 0.3 %; Eosinophils # (auto) 0.11 K/uL (0.00-0.50); Eosinophils % (auto) 0.9 %; Hematocrit (blood only) 37.2 % (37.0-47.0); Hemoglobin 12.9 g/dl (12.0-16.0); Immature Granulocytes # (auto) 0.12 K/uL (0.01-0.20); Lymphocytes # (auto) 3.39 K/uL (1.20-3.40); Lymphocytes % (auto) 27.1 %; Mean Corpuscular Hemoglobin 32.3 pg (25.0-34.0); Mean Corpuscular Hgb Conc 34.7 g/dL (32.0-36.0); Mean Corpuscular Volume 93.2 fL (80.0-100.0); Mean Platelet Volume 9.7 fL (9.4-12.4); Monocytes # (auto) 0.74 K/uL (0.11-0.59); Monocytes % (auto) 5.9 %; Neutrophils # (auto) 8.09 K/uL (1.40-6.50); Neutrophils % (auto) 64.8 %; Platelet Count 193 K/uL (130-400); RDW Coefficient of Variation 13.4 % (11.5-14.5); Red Blood Count 3.99 M/uL (4.20-5.40); White Blood Count 12.49 K/ul (4.8-10.8)
--- NOTE | 2023-05-28 01:44 | History & Physical Report ---
Date of Service May 28, 2023 Assessment & Plan (1) Status post repeat low transverse section: Plan: Repeat planned Admission and Anticipated Discharge Date Admission Date: May 28, 2023 History of Present Illness Chief Complaint: onset of labor at term prior Primary Care Provider: VLADISLAV PCP 27 F P1001 at 39.1 weeks admitted to [facility] for a repeat in active labor. Patient does not want to attempt TOLAC. GBS is positive. GDM diet controlled. Allergies Allergy/AdvReac Type Severity Reaction Status Date / Time No Known Allergies Allergy Verified 05/18/23 11:39 Home Medications Medication Instructions Recorded Confirmed Type prenat.vits,carlos,zpt-yolu-uabax 1 tab PO DAILY 10/10/20 05/18/23 History Patient History Medical History No known health problems Surgical History Hx of tonsillectomy Hx of appendectomy Hx of section [place] teeth removed Hx of cholecystectomy Family History Other No family history of adverse response to anesthesia Social History Smoking Status: Never smoker Second Hand Exposure: No; Do You Dip or Chew Tobacco: No; Tobacco Cessation Education Requested by Patient: No Hx Alcohol Use: No Hx Substance Use: No Preferred Language: Lithuanian Communication Ability: Effective 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: No Beliefs That Will Affect Care: None marital status: Current Living Situation: Spouse and Family Other Information That Helps Us Care for You: No Feels Safe at Home: Yes Safety Concerns: Feels Safe At This Time Assistive Devices: None OB History in 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 for 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 Review of Systems All systems reviewed & are unremarkable except as noted in HPI & below Physical Exam Constitutional: WD/WN, vitals as above Eyes: PERRL, conjunctivae normal, anicteric sclerae Respiratory: normal respiratory effort, lungs clear to auscultation Cardiovascular: RRR, no murmur, no edema Gastrointestinal (Abdomen): Inspection/Auscultation: abdomen normal to inspection Musculoskeletal: Extremities: extremities normal to inspection Skin: no rashes, warm and dry Neurologic: patellar DTR's 2+ bilat, sensation intact Psychiatric: A+Ox3, euthymic affect Genitourinary: Manual OB Exam: + cervical dilation 2 cm and 3 cm, + cervical effacement 80% and + station -2 OB Exam Monitor Tracing: + external FHT monitor used, + external uterine monitor used, + category I and + normal FHT variability Results & Data Vital Signs (Past 12 Hours) Vital Signs Temp Pulse Resp BP 05/28/23 01:07 36.4 C L 18 05/28/23 00:43 78 157/68 H 05/28/23 00:41 18 05/28/23 00:41 36.4 C L 18 Laboratory Results 05/28/23 01:16 WBC 12.49 H RBC 3.99 L Hgb 12.9 Hct 37.2 MCV 93.2 MCH 32.3 MCHC 34.7 RDW Std Deviation 46.0 RDW Coeff of Aryan 13.4 Plt Count 193 MPV 9.7 Immature Gran % (Auto) 1.0 Neut % (Auto) 64.8 Lymph % (Auto) 27.1 [place] % (Auto) 5.9 Eos % (Auto) 0.9 Baso % (Auto) 0.3 Neut # (Auto) 8.09 H Lymph # (Auto) 3.39 [place] # (Auto) 0.74 H Eos # (Auto) 0.11 Baso # (Auto) 0.04 Immature Gran # (Auto) 0.12 Monitoring External Monitor Cat 1
[2023-05-28] MEDS ORDERED: AZITHROMYCIN 500 MG in DEXTROSE 5% 250 ML IV ONE (01:45)
[2023-05-28] MEDS ORDERED: LACTATED RINGER'S 1,000 ML IV SCH ×2 (02:00→11:15)
[2023-05-28] MEDS ORDERED: PHENYLEPHRINE 100MCG/ML 10ML SYR IV ONE (02:13)
[2023-05-28] MEDS ORDERED: OXYTOCIN 10 UNITS/ML VIAL ONE ×3 (02:13→02:35)
[2023-05-28] MEDS ORDERED: METOCLOPRAMIDE HCL INJ 5 MG/ML 2 ML VIAL ONE (02:13)
[2023-05-28] MEDS ORDERED: ONDANSETRON INJ 2 MG/ML 2 ML VIAL ONE (02:13)
[2023-05-28] MEDS ORDERED: ePHEDrine sulfate 50 MG/5 ML SYR ONE (02:13)
[2023-05-28] MEDS ORDERED: diphenhydrAMINE 50 MG/ML VIAL IV PRN ×2 (02:15→20:15)
[2023-05-28] MEDS ORDERED: ePHEDrine sulfate 50 MG/ML AMP IV PRN (02:15)
[2023-05-28] MEDS ORDERED: NALOXONE HCL 0.4 MG/1 ML VIAL/CARP IV PRN (02:15)
[2023-05-28] MEDS ORDERED: NO NARCOTICS OR SEDATIVES SCH (02:15)
[2023-05-28] MEDS ORDERED: NALBUPHINE HCL 5 MG in SYRINGE 0 ML IV PRN (02:15)
[2023-05-28] MEDS ORDERED: SODIUM CHLORIDE 0.9% 1,000 ML IV SCH (02:15)
[2023-05-28] MEDS ORDERED: MoRPHine SULFATE 2 MG/ML CARP IV PRN (02:15)
[2023-05-28] MEDS ORDERED: LACTATED RINGER'S 500 ML IV PRN (02:15)
[2023-05-28] MEDS ORDERED: MoRPHine SULFATE PF 1 MG/ML 10 ML AMP/VIAL INT SPINAL ONE (02:15)
[2023-05-28] MEDS ORDERED: PROMETHAZINE HCL 6.25 MG in SODIUM CHLORIDE 0.9% 50 ML IV PRN (02:15)
[2023-05-28] MEDS ORDERED: NALOXONE HCL 0.08 MG in SYRINGE 1.8 ML IV PRN (02:15)
[2023-05-28] MEDS ORDERED: ONDANSETRON INJ 2 MG/ML 2 ML VIAL IV PRN ×2 (02:15→20:15)
[2023-05-28] MEDS ORDERED: NALOXONE HCL 1 MG in SODIUM CHLORIDE 0.9% 1,000 ML IV PRN (02:15)
[2023-05-28] MEDS ORDERED: DC INTRASPINAL MORPHINE SCH (02:15)
--- NOTE | 2023-05-28 02:17 | Anesthesiology Consultation ---
Date of Service May 28, 2023 Assessment & Plan (1) Encounter for pre-operative examination: History Surgery Operation Date: 05/28/23 01:30 Proposed Procedures p Section in LD - Juan Delgado MD Height/Weight Height: 5 ft 6 in Weight: 98.883 kg Allergies Allergy/AdvReac Type Severity Reaction Status Date / Time No Known Allergies Allergy Verified 05/18/23 11:39 Medications Home Medications Medication Instructions Recorded Confirmed Last Taken prenat.vits,carlos,aou-ehsa-zpmjf 1 tab PO DAILY 10/10/20 05/18/23 10/09/20 08:00 NPO Date Last Intake of Fluids: 05/27/23 Time Last Intake of Fluids: 19:30 Date Last Intake of Solids: 05/27/23 Time Last Intake of Solids: 19:30 Past Medical History Medical History No known health problems Exercise / Class Metabolic Activity II 4-5 Yardwork/Stairs/Walk up hill Past Family History Family History Other No family history of adverse response to anesthesia Past Surgical History Surgical History Hx of tonsillectomy Hx of appendectomy Hx of section [place] teeth removed Hx of cholecystectomy Past Anesthesia History No Hx of Anesthesia Complications History of PONV No Hx of PONV and No Hx of Motion Sickness Social History Smoking Status: Never smoker Do You Dip or Chew Tobacco: No Hx Alcohol Use: No Hx Substance Use: No substance use type: does not use Physical Exam Vital Signs Last Vital Signs Temp 36.4 C L 05/28/23 01:07 Pulse 78 05/28/23 00:43 Resp 18 05/28/23 01:07 BP 157/68 H 05/28/23 00:43 Testing Laboratory Results 05/28/23 01:16 Blood Type A Positive 05/28/23 01:16 Antibody Screen NEGATIVE 05/28/23 01:16
--- NOTE | 2023-05-28 02:59 | Post Operative Brief Note ---
Immediate Post Op Note v1 Date of Surgery May 28, 2023 Pre & Post Diagnosis Operation Date: 05/28/23 01:30 Pre-Op Diagnosis: 1.) Term 2.) Labor 3.) Elective Repeat Section Post-Op Diagnosis: Same as pre op I identified the patient and participated in the time-out.: Yes Procedure Operation Date: 05/28/23 01:30 Actual Procedures p Repeat Section for the of a live male child at 2011. - Juan Delgado MD Surgeon Juan Delgado MD Continuous Vulcanizing Machine Operator Dr. Dolan Estimated Blood Loss 600 Findings Consistent with Post-Op Diagnosis live male vertex Apgars 9/9 8#5 oz. Fluids LR 2000 ml. Specimens placenta Drains Jaramillo Catheter (100 ml.) Anesthesia Type Spinal Complications none Disposition Accompanied Patient To Recovery: Yes Overlapping Procedure I was present for: the critical portions of procedure. I was immediately available: during the entire case. Back up surgeon: used during listed procedure.
[2023-05-28] MEDS ORDERED: DIPHTHER/TETAN/PERTUS Vaccine (Tdap, Adol/Adult) 0.5mL IM ONE (03:05)
[2023-05-28] MEDS ORDERED: SENNA 8.6 MG TAB PO PRN (03:05)
[2023-05-28] MEDS ORDERED: MAGNESIUM HYDROXIDE SUSP 30 ML UDC PO PRN (03:05)
[2023-05-28] MEDS ORDERED: BENZOCAINE 20% SPRY 85 APPLN/85 GM CAN EXT PRN (03:05)
[2023-05-28] MEDS ORDERED: HYDROCORTISONE ACETATE 25 MG SUPP PR PRN (03:05)
--- NOTE | 2023-05-28 03:12 | Operative Report ---
Post Operative Report Pre & Post Diagnosis Operation Date: 05/28/23 01:30 Pre-Op Diagnosis: 1.) Term 2.) Labor 3.) Elective Repeat Section Post-Op Diagnosis: Same as pre op I identified the patient and participated in the time-out.: Yes Procedure Operation Date: 05/28/23 01:30 Actual Procedures p Repeat Section for the of a live male child at 2011. - Juan Delgado MD Surgeon Juan Delgado MD Strip Feeder Dr. Dolan Estimated Blood Loss 600 Findings Consistent with Post-Op Diagnosis live male Apgars 9/9 8#5 oz. vertex Fluids LR 2000 ml. Specimens placenta Drains Jaramillo Complications none Disposition Accompanied Patient To Recovery: Yes Indications elective repeat in labor Description of Procedure Under satisfactory spinal anesthesia the patient was prepped draped usual sterile fashion. A timeout was called the patient was identified antibiotics were given preop. Low Pfannenstiel incision through her prior scar was then made entering into the abdominal cavity in successive layers without difficulty upon entering into the peritoneal cavity the patient was noted to be in the vertex presentation. Bladder flap was then dissected down with sharp dissection using Metzenbaum scissors a low segment transverse incision over the lower uterine segment was made the incision was nicked clear amniotic fluid was noted. The incision was then widened in the AP diameter. The was then d elivered with the aid of fundal pressure from the vertex presentation cord was doubly clamped and cut after a 1 minute cord delay revealing a live male Apgars were 9 and 9 weight was 8 pounds 5 ounces. Cord blood was then obtained placenta was then delivered spontaneously and intact. This was submitted to pathology as a separate specimen. The uterus was then exteriorized ring forceps were then placed on both angles and the inferior margin. Clean lap was then used to clean the inside of the uterus of all clots and debris. Uterus was then closed with 0 Vicryl suture in a continuous locking suture followed by 0 Vicryl imbricating suture of 0 Vicryl suture. Hemostasis was obtained tubes ovaries bilaterally were found to be within normal limits. The initial sponge needle instrument count were found to be correct. The uterus was then placed back into the normal anatomical position. The fascia was then reapproximated with a 0 Vicryl suture in a continuous fashion. Subcuticular space was irrigated and bleeders were then cauterized. Subcuticular space was then closed with 2-0 plain suture. The skin was then reapproximated with 4-0 Monocryl suture. Steri-Strips Telfa and ABD were then applied to the wound uterus was expressed of all clots and debris. The final sponge needle instrument counts were found to be correct the estimated blood loss was 600 mL the patient was then placed supine on stretcher she was taken to the recovery room in stable condition. Please note that Dr. Dolan was needed as an showroom sales assistant to provide for retraction help with fundal pressure delivery of the infant closure of the uterus and abdomen I attest to the content of the Intraoperative Record and any orders documented therein. Any exceptions are noted below.
[2023-05-28] MEDS: OXYTOCIN 20 UNITS/LR 1,002 ML IV SCH (04:02)
[2023-05-28] MEDS: FERROUS SULFATE 325 MG TAB PO SCH (07:51)
[2023-05-28] MEDS: PRENATAL VITAMIN 1 TAB PO SCH (07:51)
[2023-05-28] MEDS: SIMETHICONE 80 MG CHEW PO SCH (07:51)
[2023-05-28] MEDS: DOCUSATE SODIUM 100 MG CAP PO SCH (07:51)
[2023-05-28] MEDS ORDERED: NON-FORMULARY MEDICATION (Prenat.Vits,Cal,Min-Iron-Folic Tablet) PO SCH (09:00)
--- OUTSIDE RECORDS SUMMARY | 2023-05-28 14:50 | External Medical Summary | Summary of Care ---
Author Name Unknown Organization [facility] Address [address] [place] [address] Phone [phone] Care Team Providers Care Patcher Helper Name Role Phone Sortor Catalina Gaspar MD Primary Care Pro vider Reason for Visit * Reason Comments Return Visit Encounter Details Date Type Department Care Team (Late st Contact Info) Description 05/10/2023 3:00 PM EST Office Visit Gynecology/Obstetric [facility] [address] [place] [address] Chente Garcia MD [address] [place] [address] Supervision of other normal , antepartum*; H/O section; History of premature rupture of membranes (PPROM); Insulin controlled gestational diabetes mellitus (GDM) in third trimester; History of delivery, currently ; Preop testing Allergies No known active allergiesdocumented as of this encounter (statuses as of 05/10/2023) Medications Medication Sig Dispensed Refills Start Date End Date Status 19 29-1 MG Oral Tablet Take 1 Tablet by mouth in the morning. 0 Active Breast Pump Dispense double electric breast pump. Dx Z39.1 1 Each 0 08/28/2020 Active Additional Information Patient not taking.Reported on 04/01/2023 OneTouch Verio Flex System w/Device KitIndications:Gest ational diabetes mellitus (GDM) in third trimester, gestational diabetes method of control unspecified Use to test blood sugars 4 times daily (fasting, 1 hour after breakfast, lunch, and dinner) 1 Kit 0 03/26/2023 Active OneTouch Verio In Vitro Strip (Glucose Blood)Indications:G estational diabetes mellitus (GDM) in third trimester, gestational diabetes method of control unspecified Use to test blood sugars 4 times daily (fasting, 1 hour after breakfast, lunch, and dinner) 125 Strip 6 03/26/2023 Active OneTouch Delica Lancets 30GIndications:Gest ational diabetes mellitus (GDM) in third trimester, gestational diabetes method of control unspecified Use to test blood sugars 4 times daily (fasting, 1 hour after breakfast, lunch, and dinner) 200 Each 6 03/26/2023 Active Breast PumpIndications:Sup ervision of other normal , antepartum For lactating mother to breastfeed 1 Each 0 03/31/2023 Active Additional Information Patient not taking.Reported on 04/01/2023 documented as of this encounter (statuses as of 05/10/2023) Active Problems Problem Noted Date Diagnosed Date History of delivery, currently 04/01/2023 Overview: First , 2020 PPROM with subsequent labor at 36w4d Primary due to breech presentation Last Assessment & Plan: CONSIDERATIONS: Patient is at high risk to have a recurrent delivery (PTD): 3.6-fold higher with one prior PTD and the risk increases with the number of previous PTDs. Discussed modifiable risk factors (e.g., infections, tobacco/substance abuse, severe anemia, and poor nutrition). Previous studies showed that 17 alpha-hydroxyprogesterone (17P) could decrease the risk of recurrent PTD by up to 50% in women with previous spontaneous PTD prior to 37 weeks. However, follow-up studies failed to confirm these results and 17P has since been withdrawn from the market by the FDA due to lack of efficacy. There is some evidence that vaginal micronized progesterone 200 mg may reduce the risk for recurrent spontaneous . It can be prescribed as either a compounded suppository or as oral Prometrium capsules placed intravaginally at bedtime. RECOMMENDATIONS: Consider nightly vaginal progesterone, particularly in patients who previously received 17P. Patient's primary VETERINARY PHYSIOLOGIST can coordinate therapy if desired. For patients with a history of delivery/prolonged PROM between or after 34 weeks, we do not recommend cervical length monitoring. Supervision of high risk in third [facility] mu 04/01/2023 with 30 completed weeks gestation 03/22 [facility]23 Overview: Diagnosed at 30 weeks Nutrition consult ordered Lab Results Component Value Date/Time 50-G GESTATIONAL GLUCOSE, 1 HOUR - [facility] 158 (H) 03/16/2023 08:47 AM 100-G GESTATIONAL GLUCOSE, 1 HOUR - [facility] 194 (H) 03/26/2023 09:01 AM 100-G GESTATIONAL GLUCOSE, 2 HOUR - [facility] 167 (H) 03/26/2023 10:07 AM 100-G GESTATIONAL GLUCOSE, 3 HOUR - [facility] 117 03/26/2023 11:05 AM 100-G GESTATIONAL GLUCOSE, FASTING - [facility] 85 03/26/2023 08:03 AM She reports her home blood glucose as following: DATE Fasting 1 hr after Breakfast 1 hr after Lunch 1 hr after Dinner 03/29/2023 x x x 94 03/30/2023 90 87 96 105 03/31/2023 84 107 136 106 04/01/23 86 96 106 x 04/01/23: MFM ADAPT consult complete. Enrolled in Current Health. Instructions provided to report blood sugars each week for MFM review 04/13/23-stable 04/21/23-stable 04/28/23-stable 05/03/23: RPM reviewed; blood sugars stable overall; continue diet controlled Last Assessment & Plan: CONSIDERATIONS: Reviewed etiology and risks associated with gestational diabetes mellitus (GDM), including risks to , fetus, and maternal progression to Type 2 DM. Instructed on proper use of glucometer; supplies ordered, if indicated. Advised that life-long screening for diabetes is recommended every 1-3 years. RECOMMENDATIONS: Recommend monitoring blood sugars with daily fasting blood sugar (maintained at less than or equal to 95) and 1 hour postprandial measurements (maintained at less than or equal to 140). Medications should be adjusted to maintain these target values. Report levels to MFM (Maternal- Medicine) weekly. Recommend nutrition consult with RDN (Registered Dietitian Toy Parts Former Supervisor). Lifestyle changes are also indicated including optimizing gestational weight gain and physical activity of 30 minutes per day, if not otherwise contraindicated in . Insulin is preferred if medications are indicated to optimize euglycemia. Metformin (preferred over glyburide) may also be used in some circumstances. Reviewed the risks and benefits of each. Recommend ultrasound, surveillance and delivery as follows: A1GDM, delivery should be accomplished by 41w0d. A2GDM, recommend growth assessment with MFM every 4 weeks, initiate surveillance at 32 weeks and continue until delivery at 39 weeks. Recommend intrapartum monitoring every 1-2 hours (A2GDM) or every 4 hours (A1GDM) and treat with insulin if indicated. Recommend 2-hour glucose tolerance testing with 75-gram glucose load 6-8 weeks . Supervision of other normal , antepartu m 10/23/2022 H/O section 10/23/2022 Overview: C/s for breech delivery History of premature rupture of membrane s (PPROM) 10/23/2022 Overview: PPROM at 36w Estimated Date of Delivery Comme nts Yes 06/03/2023 Based on last me nstrual period of 08/27/2022 documented as of this encounter (statuses as of 05/10/2023) Resolved Problems Problem Noted Date Diagnosed Date Resolved Date Carrier of group B Streptococcus 10/11/2020 11/19/2020 Overview: Abx in labor Encounter for supervision of normal first in first trimester 04/29/2020 10/17/2020 Overview: Labs in care everwhere: A+ ABS neg H/H 13/36.5 Rubella non-immune RPR neg Hep B neg HIV Neg GC/CT/Trich neg/neg/neg MSAFP neg Materniti 21 (neg per patient)awaiting records Rubella non-immune status, antepartum 04/09/2020 10/17/2020 documented as of this encounter (statuses as of 05/10/2023) Immunizations Name Administration Dates Next Due TDAP (age 10 and older)(Boostrix) 03/16/2023, documented as of this encounter Social History Tobacco Use Types Packs/Day Years Used Date Smoking Tobacco: Never Smokeless Tobacco: Never Alcohol Use Standard Drinks/Week Comments Not Currently 0 (1 standard drink = 0.6 oz pur e alcohol) PHQ-2 Answer Date Recorded PHQ Adult Total Score 0 02/16/2023 Hunger Vital Sign Answer Date Recorded Within the past 12 months, y ou worried that your food would run out before you got the money to buy more. Never true 01/28/20 23 Within the past 12 months, t he food you bought just didn't last and you didn't have money to get more. Never true 01/27/2023 [place] Depression Scale Answer Date Recorded [place] Depression Scale Total 4 04/26/2023 The thought of harming myself has occurred to me . Never 04/26/2023 Estimated Date of Delivery Comme nts Yes 06/03/2023 Based on last me nstrual period of 08/27/2022 Sex and Gender Information Value Date Recorded Sex Assigned at Female 10/23/2022 10:38 AM EDT Gender Identity Female 10/23/2022 10:38 AM EDT Sexual Orientation Straight 10/23/2022 10 :38 AM EDT Job Start Date Occupation Industry Not on file Not on file Not on file documented as of this encounter Last Filed Vital Signs Vital Sign Reading Time Taken Comments Blood Pressure 98/66 05/10/2023 2:48 PM EST Pulse - - Temperature 36.4 C (97.6 F) 05/10/2023 2:48 PM ES T Respiratory Rate - - Oxygen Saturation - - Inhaled Oxygen Concentration - - Weight 98.9 kg (218 lb) 05/10/2023 2:48 PM EST Height 167.6 cm (5' 6") 05/10/2023 2:48 PM EST Body Mass Index 35.19 05/10/2023 2:48 PM EST documented in this encounter Progress Notes * Chente Garcia MD - 05/10/2023 3:12 PM EST Pt doing well No complaints H&P done GBs done RTC 1 week documented in this encounter H&P Notes * Chnete Garcia MD - 05/10/2023 3:13 PM EST Carla [address] [address] Appt line [phone] Nikita Dang is a 27 year old year old year old at 36w4d Patient is . Estimated Date of Delivery: 06/03/23 Prior c/sec. Wishes to HAVE REPEAT C/SEC Patient is here for Preop Care: Risk Factors: OB History Para Term AB Living 2 1 0 1 0 1 SAB IAB Ectopic Multiple Live Births 0 0 0 0 1 # Outcome Date GA Lbr Alli/2nd Weight Sex Delivery Anes PTL Lv 2 Current 1 10/10/20 36w4d 3.066 kg (6 lb 12.2 oz) F CS-LTranv N ANTONIA Complications: labor, Breech presentation Obstetric Comments 2023: FOB #1 J Luis, age 29, healthy Date Labor Sex Delivery Anesth Del Comments GA Length Weight Type Site [employer] Ax Developer History: Menstrual Index: // days. Denies h/o STDs and abnormal Paps. Her past medical/surgical histories and current medications are recorded in the electronic record. Past Surgical History: Procedure Laterality Date ANESTH, CS DELIVERY 10/10/2020 [place] APPENDECTOMY 04/2022 [place] TONSILLECTOMY AND ADENOIDECTOMY: UNDER AGE 10 1998 REMOVE GALLBLADDER 2010 No family history on file. 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 Tobacco Use Smoking status: Never Smokeless tobacco: Never Substance and Sexual Activity Alcohol use: Not Currently Drug use: Never Sexual activity: Yes Partners: Male Other Topics Concern Not on file Social History Narrative Not on file Social Determinants of Health Financial Resource Strain: Not on file Food Insecurity: No Food Insecurity (01/27/2023) Hunger Vital Sign Worried About Running Out of Food in the Last Year: Never true Ran Out of Food in the Last Year: Never true Transportation Needs: Not on file Physical Activity: Not on file Stress: Not on file Social Connections: Not on file Intimate Partner Violence: Not on file Housing Stability: Not on file @[employer]S@ Physical Exam: BP 98/66 | Temp 36.4 C (97.6 F) | Ht 1.676 m (5' 6") | Wt 98.9 kg (218 lb) | LMP 08/27/2022 | BMI 35.19 kg/m | BSA 2.15 m CV: S1, S2. Regular rate and Rhythm Lungs: Clear to auscultation bilaterally. Abdomen: Soft with a gravid uterus and palpable contractions. Fundal Height: 36cms heart rate: 140/min Extremities: Soft non tender calves bilaterally. A/P: 27 year old year old with PRIOR C/SEC Wishes to have repeat c/sec We have discussed the risk alternatives and complications of surgery including more surgery to correct complication,risk of anesthesia,infection,damage to internal organs and . We have also discussed the possibility that pt's present situation may not change. Pt is aware and wishes to proceed to surgery. Consent is signed Chente Garcia MD 05/10/2023 3:13 PM documented in this encounter Plan of Treatment Upcoming Encounters Date Type Department Care Team (Late st Contact Info) Description 05/19/2023 3:15 PM EST Office Visit Gynecology/Obstetrics [facility] [address] [place] [address] Oriana Watt CRNP [address] [place] [address] 05/24/2023 4:30 PM EST Office Visit Gynecology/Obstetrics [facility] [address] [place] [address] Kay Mills PA-C [address] [place] [address] 06/09/2023 10:30 AM EDT Office Visit Gynecology/Obstetrics [facility] [address] [place] [address] Yashira Bills CRNP [address] [place] [address] Pending Results Name Type Priority Associated Diagnoses Date /Time GROUP B STREP CULTURE/PCR Lab Routine Supervision of other normal , antepartum 05/10/2023 3:45 PM EST Scheduled Orders Name Type Priority Associated Diagnoses Orde r Schedule CBC WITH WBC DIFFERENTIAL Lab Routine Preop testing Ordered: 05/10/2023 Health Maintenance Due Date Last Done Comments COVID-19 Vaccine ( season) 2022 Influenza Vaccine (FLU shot) (#1) 2022 Depression Screening 02/17/2024 02/16/2023 Pap Smear 10/23/2025 10/23/2022 DTaP,Tdap,and Td Vaccines (7 - Td or Tdap) 03/16/2033 03/16/2023, 08/12/2020, 12/02/1994, Additional history exists Hepatitis B Completed 03/04/1994, 08/1993, 1993 GARDASIL-HPV IMMUNIZATION SERIES Aged Out No longer eligible based on patient's age to complete this topic MENINGOCOCCAL (MENACTRA/MENVEO) Aged Out No longer eligible based on patient's age to complete this topic Pneumococcal Vaccine: Pediatrics (0 to 5 Years) and At-Risk Patients (6 to 64 Years) Aged Out No longer eligible based on patient's age to complete this topic documented as of this encounter Medical Devices Not on filedocumented as of this encounter Visit Diagnoses Diagnosis Supervision of other normal , antepartum- Primary H/O section Other postprocedural status History of premature rupture of membranes (PPROM) Insulin controlled gestational diabetes mellitus (GDM) in third trimester History of delivery, currently with history of pre-term labor Preop testing Preoperative examination, unspecified documented in this encounter Care Teams Patcher Helper Relationship Specialty Start Date End Date Sortor Catalina Gaspar MD [address] [address] PCP - General 12/08/02 documented as of this encounter
--- OUTSIDE RECORDS SUMMARY | 2023-05-28 14:50 | External Medical Summary | Summary of Care ---
Author Name Unknown Organization [facility] Address [address] [place] [address] Phone [phone] Care Team Providers Care Rn Utilization Management Um Name Role Phone Sortor Catalina Gaspar MD Primary Care Pro vider Reason for Visit * Reason Comments Return Visit Encounter Details Date Type Department Care Team (Late st Contact Info) Description 05/19/2023 3:15 PM EST Office Visit Gynecology/Obstetric s [facility] [address] [place] [address] Oriana Watt CRNP [address] [place] [address] Supervision of other normal , antepartum*; H/O section; History of premature rupture of membranes (PPROM); Diet controlled gestational diabetes mellitus (GDM) in third trimester; History of delivery, currently Allergies No known active allergiesdocumented as of this encounter (statuses as of 05/19/2023) Medications Medication Sig Dispensed Refills Start Date [...] after breakfast, lunch, and dinner) 200 Each 03/26/2023 Active Breast PumpIndications:Sup ervision of other normal , antepartum For lactating mother to breastfeed infant 1 Each 0 03/31/2023 Active Additional Information Patient not taking.Reported on 04/01/2023 documented as of this encounter (statuses as of 05/19/2023) Active Problems Problem Noted Date Diagnosed Date [...] patients who previously received 17P. Patient's primary LEADERSHIP COACH can coordinate therapy if desired. For patients with a history of delivery/prolonged PROM between or after 34 weeks, we do not recommend cervical length monitoring. Supervision of high risk in third trim mu 04/01/2023 with 30 completed weeks gestation 03/22 [facility] Overview: Diagnosed at 30 weeks Nutrition [...] blood sugars stable overall; continue diet controlled 05/12/23- stable 05/19/23-stable Last Assessment & Plan: CONSIDERATIONS: Reviewed etiology [...] Recommend nutrition consult with RDN (Registered Dietitian Refiner Operator). Lifestyle changes are also indicated including optimizing [...] as of this encounter (statuses as of 05/19/2023) Resolved Problems Problem Noted Date Diagnosed Date [...] as of this encounter (statuses as of 05/19/2023) Immunizations Name Administration Dates Next Due TDAP [...] money to get more. Never true 01/27/2023 [place] Depression Scale Answer Date Recorded [place] Depression Scale Total 4 04/26/2023 The thought [...] Sign Reading Time Taken Comments Blood Pressure 100/60 05/19/2023 3:12 PM EST Pulse - - Temperature - - Respiratory Rate - - Oxygen Saturation - - Inhaled Oxygen Concentration - - Weight 97.5 kg (215 lb) 05/19/2023 3:12 PM EST Height - - Body Mass Index 34.7 05/10/2023 2:48 PM EST documented in this encounter Progress Notes * Oriana Watt CRNP - 05/19/2023 3:39 PM EST 37w6d Has had body aches, chills, low fever for a few days. Feeling better today, but not back to baseline. Was negative yesterday for COVID/flu/RSV. No congestion, sore throat, etc. No other concerns. Baby is active. Denies contractions, bleeding, LOF. C/s scheduled. ZENAIDA Hay * Billie Fatima LPN - 05/19/2023 3:13 PM EST 37w6d Denies vaginal bleeding/rom + movement Has been dealing with illness Some contractions documented in this encounter Plan of Treatment Upcoming Encounters Date Type Department Care Team (Late st Contact Info) Description 05/24/2023 4:30 PM EST Office Visit Gynecology/Obstetrics [facility] [address] [place] [address] Kay Mills PA-C [address] [place] [address] 06/09/2023 10:30 AM EDT Office Visit [facility] [address] [place] [address] Yashira Bills CRNP [address] [place] [address] Health Maintenance Due Date Last Done Comments COVID-19 Vaccine (2022- season) 2022 Influenza Vaccine (FLU shot) (#1) [...] History of premature rupture of membranes (PPROM) Diet controlled gestational diabetes mellitus (GDM) in third trimester History of delivery, currently with history of pre-term labor documented in this encounter Care Teams Rn Utilization Management Um Relationship Specialty Start Date End Date Sortor Catalina Gaspar MD [address] [facility] [address] [place] [address] PCP - General 12/08/02 documented as of this encounter
--- OUTSIDE RECORDS SUMMARY | 2023-05-28 14:50 | External Medical Summary | Summary of Care ---
Author Name Unknown Organization [facility] Address [address] [place] [address] Phone [phone] Care Team Providers Care Yacht Master Name Role Phone Sortor Catalina Gaspar MD Primary Care Pro vider Reason for Visit * Reason Onset Date Comments Test Results 01/28/2023 Unexpected or In determinate Result Encounter Details Date Type Department Care Team (Late st Contact Info) Description 01/28/2023 Telephone Radiology [facility] [address] [facility] [place] [address] Oriana Watt CRNP [address] [facility] [place] [address] Test Results (Unexpected or Indeterminate ... Allergies No known active allergiesdocumented as of this encounter (statuses as of 04/29/2023) Medications Medication Sig Dispensed Refills Start Date End Date Status 19 29-1 MG Oral Tablet Take 1 Tablet by mouth in the morning. 0 Active Breast Pump Dispense double electric breast pump. Dx Z39.1 1 Each 0 08/28/2020 Active Additional Information Patient not taking.Reported on 04/01/2023 documented as of this encounter (statuses as of 04/29/2023) Active Problems Problem Noted Date Diagnosed Date [...] patients who previously received 17P. Patient's primary COLOR FINISHER can coordinate therapy if desired. For patients with a history of delivery/prolonged PROM between or after 34 weeks, we do not recommend cervical length monitoring. Supervision of high risk in [facility] 04/01/2023 with 30 completed weeks gestation 03/22 Gestational diabetes mellitus (GDM) in [facility] 03/26/2023 Overview: Diagnosed at 30 weeks Nutrition [...] week for MFM review 04/13/23-stable 04/21/23-stable 04/28/23-stable Last Assessment & Plan: CONSIDERATIONS: Reviewed etiology [...] Recommend nutrition consult with RDN (Registered Dietitian Diesel Locomotive Engineer). Lifestyle changes are also indicated including optimizing [...] as of this encounter (statuses as of 04/29/2023) Resolved Problems Problem Noted Date Diagnosed Date [...] as of this encounter (statuses as of 04/29/2023) Immunizations Name Administration Dates Next Due TDAP (age 10 and older)(Boostrix) 08/12/2020 documented as of this encounter Social History [...] money to get more. Never true 01/27/2023 [place] Depression Scale Answer Date Recorded [place] Depression Scale Total 4 04/26/2023 The thought [...] on file documented as of this encounter Miscellaneous Notes * Telephone Encounter - Oriana Watt CRNP - 01/28/2023 4:40 PM EST Pt was aware of need for another ultrasound for missed anatomy at the time of her visit. This was documented in the note at the time of her visit. * Telephone Encounter - Ashley Fortune OSA - 01/28/2023 3:52 PM EST Hello- The radiologist discovered an unexpected or indeterminate finding on Nikita Granadouire ([id number]) and asks that you review the following report. Study Type:US PREG SINGLE/1ST GEST, 14 WEEKS OR LATER Res Date of Study: 01/28/2023 1. Live single in variable position 22 weeks 3 days with appropriate growth since the initial study. 2. Kidneys and spine not well seen and follow-up in 2 weeks recommended in this regard. Please respond to this encounter to acknowledge receipt of this message and take responsibility to ensure this report is reviewed. Thank you, JAYSHREE Sousa Client Service Rep [facility] documented in this encounter Plan of Treatment Upcoming Encounters Date Type Department Care Team (Late st Contact Info) Description 05/10/2023 3:00 PM EST Office Visit Gynecology/Obstetrics [facility] [address] [place] [address] Chente Garcia MD [address] [place] [address] 05/19/2023 3:15 PM EST Office Visit Gynecology/Obstetrics [facility] [address] [place] [address] Oriana Watt CRNP [address] [place] [address] 05/24/2023 4:30 PM EST Office Visit Gynecology/Obstetrics [facility] [address] [place] [address] Kay Mills PA-C [address] [place] [address] 06/09/2023 10:30 AM EDT Office Visit Gynecology/Obstetrics [facility] [address] [place] [address] Yashira Bills CRNP [address] [place] [address] Health Maintenance Due Date Last Done Comments COVID-19 Vaccine (#1) 02/20/1994 Influenza Vaccine (FLU shot) (#1) 2022 Depression [...] Not on filedocumented as of this encounter Care Teams Yacht Master Relationship Specialty Start Date End Date Sortor Catalina Gaspar MD [address] [facility] [address] [place] [address] PCP - General 12/08/02 documented as of this encounter
--- OUTSIDE RECORDS SUMMARY | 2023-05-28 14:50 | External Medical Summary | Summary of Care ---
Author Name Unknown Organization [facility] Address [address] [place] [address] Phone [phone] Care Team Providers Care Band Attacher Name Role Phone Sortor Catalina Gaspar MD Primary Care Pro vider Reason for Visit * Reason Comments Return Visit Encounter Details Date Type Department Care Team (Late st Contact Info) Description 05/24/2023 4:30 PM EST Office Visit Gynecology/Obstetric s Greg Esquivel [address] [place] [address] Kay Mills PA-C [address] [place] [address] Supervision of other normal , antepartum*; H/O section; History of premature rupture of membranes (PPROM); Gestational diabetes mellitus (GDM) in third trimester, gestational diabetes method of control unspecified; History of delivery, currently Allergies No known active allergiesdocumented as of this encounter (statuses as of 05/24/2023) Medications Medication Sig Dispensed Refills Start Date [...] as of this encounter (statuses as of 05/24/2023) Active Problems Problem Noted Date Diagnosed Date [...] patients who previously received 17P. Patient's primary FORMING AND ASSEMBLING SUPERVISOR can coordinate therapy if desired. For patients with a history of delivery/prolonged PROM between or after 34 weeks, we do not recommend cervical length monitoring. Supervision of high risk in third [facility] mu 04/01/2023 with 30 completed weeks gestation 03/22 [facility] 03/[facility]/2023 Overview: Diagnosed at 30 weeks [...] Recommend nutrition consult with RDN (Registered Dietitian Certified Medical Assistant). Lifestyle changes are also indicated including optimizing [...] as of this encounter (statuses as of 05/24/2023) Resolved Problems Problem Noted Date Diagnosed Date [...] as of this encounter (statuses as of 05/24/2023) Immunizations Name Administration Dates Next Due TDAP [...] money to get more. Never true 01/27/2023 [place] Depression Scale Answer Date Recorded [place] Depression Scale Total 4 04/26/2023 The thought [...] Sign Reading Time Taken Comments Blood Pressure 96/70 05/24/2023 4:21 PM EST Pulse - - Temperature - - Respiratory Rate - - Oxygen Saturation - - Inhaled Oxygen Concentration - - Weight 98 kg (216 lb) 05/24/2023 4:21 PM EST Height 167.6 cm (5' 6") 05/24/2023 4:21 PM EST Body Mass Index 34.86 05/24/2023 4:21 PM EST documented in this encounter Progress Notes * Kay Mills PA-C - 05/24/2023 4:34 PM EST 38w4d Without complaints. Intermittent contractions, no timing or regularity. Denies VB, LOF. Pos fm. Repeat c/s scheduled 06/02/2023. Labor precautions reviewed. RTC for PP appointments Kay Mills PA-C documented in this encounter Nursing Notes * Dot Jay LPN - 05/24/2023 4:25 PM EST 38w4d Denies concerns. documented in this encounter Plan of Treatment Upcoming Encounters Date Type Department Care Team (Late st Contact Info) Description 06/09/2023 10:30 AM EDT Office Visit Gynecology/Obstetrics Greg Esquivel [address] [place] [address] Yashira Bills CRNP [address] [place] [address] Health Maintenance Due Date Last Done Comments [...] History of premature rupture of membranes (PPROM) Gestational diabetes mellitus (GDM) in third trimester, gestational diabetes method of control unspecified History of delivery, currently with history of pre-term labor documented in this encounter Care Teams Band Attacher Relationship Specialty Start Date End Date Sortor Catalina Gaspar MD [address] [facility] [address] [address] PCP - General 12/08/02 documented as of this encounter
--- OUTSIDE RECORDS SUMMARY | 2023-05-28 14:50 | External Medical Summary ---
Author Name Unknown Address Unknown Organization K01:[facility] - [facility] [address] [facility] [address] Laboratory Report Ordering Provider Test Date Status VELMA SERRATO 05/10/2023 15:45:36 Final Observation Date Value Abnormality Reference (Units ) Status Streptococcus agalactiae DNA [Presence] in Specimen by VINNY with probe detection 05/10/2023 15:45:36 Positive Abnormal Negative Final Group B Streptococcus detect ed by culture-enhanced PCR (amplified probe).
The collection of vaginal/rectal swab specimen combinations (FDA approved specimen type) is optimal for the detection of Group B Streptococcus. Single source collection (vaginal only or rectal only) or alternate specimen sources may lead to false negative results. Performing Location [facility] [address] [facility] [address]
--- OUTSIDE RECORDS SUMMARY | 2023-05-28 14:50 | External Medical Summary | Summary of Care ---
Author Name Unknown Organization [facility] Address [address] [place] [address] Phone [phone] Care Team Providers Care Roll Icer Name Role Phone Sortor Catalina Gaspar MD Primary Care Pro vider Encounter Details Date Type Department Care Team (Late st Contact Info) Description 04/27/2023 Telephone Gynecology/Obstetrics [facility] [address] [facility] [place] [address] BackerYashira CRNP [address] [place] [address] Allergies No known active allergiesdocumented as of this encounter (statuses as of 04/27/2023) Medications Medication Sig Dispensed Refills Start Date [...] as of this encounter (statuses as of 04/27/2023) Active Problems Problem Noted Date Diagnosed Date [...] patients who previously received 17P. Patient's primary MACHINE MOVER can coordinate therapy if desired. For patients with a history of delivery/prolonged PROM between or after 34 weeks, we do not recommend cervical length monitoring. Supervision of high risk in third trim mu 04/01/2023 with 30 completed weeks gestation 03/22 Gestational diabetes mellitus (GDM) in third tri mester 03/26/2023 Overview: Diagnosed at 30 weeks Nutrition [...] each week for MFM review 04/13/23-stable 04/21/23-stable Last Assessment & Plan: CONSIDERATIONS: Reviewed etiology [...] Recommend nutrition consult with RDN (Registered Dietitian Shipping Team Leader). Lifestyle changes are also indicated including optimizing [...] as of this encounter (statuses as of 04/27/2023) Resolved Problems Problem Noted Date Diagnosed Date Resolved Date Carrier of group B Streptococcus 10/11/2020 11/19/2020 Overview: Abx in labor Encounter for supervision of normal first in first trimester 04/29/2020 10/17/2020 Overview: Labs in care everwhere: A+ ABS neg H/H 1336.5 Rubella non-immune RPR neg Hep B neg HIV Neg GC/CT/Trich neg/neg/neg MSAFP neg Materniti 21 (neg per patient)awaiting records Rubella non-immune status, antepartum 04/09/2020 10/17/2020 documented as of this encounter (statuses as of 04/27/2023) Immunizations Name Administration Dates Next Due TDAP [...] money to get more. Never true 01/27/2023 [place] Depression Scale Answer Date Recorded [place] Depression Scale Total 4 04/26/2023 The thought [...] encounter Miscellaneous Notes * Telephone Encounter - Diandra Kay LPN - 04/27/2023 10:38 AM EST Started having lower pelvic menstrual like cramps around 1 am. Low back pain and belly pain. Rebuck like she needed to have a bowel movement but discomfort did not resolve after having one. She went towork, is pushing fluids. Still having menstrual like cramping. Nothing to time. Denies LOF, or bleeding. + FM Hx of 36 wk PPROM with last . Reviewed with Dr. Garcia diamond selector. He said comfort measures and push fluids. If things worsen, don't improve or contractions start then she should call and let us know. Also let us know if there is anybleeding or leaking/gushing fluid or decrease in FM. Patient agreeable. * Telephone Encounter - Dot Jay LPN - 04/27/2023 8:04 AM EST Please clarify. documented in this encounter Plan of Treatment Upcoming Encounters Date Type Department Care Team (Late st Contact Info) Description 05/10/2023 3:00 PM EST Office Visit Gynecology/Obstetrics [facility] [address] [place] [address] Chente Garcia MD [address] [place] [address] 05/19/2023 3:15 PM EST Office Visit Gynecology/Obstetrics [facility] [address] [place] [address] Oriana Watt CRNP [address] [place] [address] 05/24/2023 4:30 PM EST Office Visit Gynecology/Obstetrics [facility] [address] [place] [address] Kay Mills PA-C [address] [place] [address] 06/09/2023 10:30 AM EDT Office Visit Gynecology/Obstetrics [facility] [address] [place] [address] Yashira Bills CRNP [address] [place] [address] Health Maintenance Due Date Last Done Comments COVID-19 Vaccine (#1) 02/20/1994 Influenza Vaccine (FLU shot) (#1) 2022 Depression Screening 02/17/2024 02/16/2023 Pap Smear 10/23/2025 10/23/2022 DTaP,Tdap,and Td Vaccines (7 - Td or Tdap) 03/16/2033 03/16/2023, 08/12/2020, 12/02/1994, Additional history exists Hepatitis B Completed 03/04/1994, 0708/1993, 1993 GARDASIL-HPV IMMUNIZATION SERIES Aged Out No [...] filedocumented as of this encounter Care Teams Roll Icer Relationship Specialty Start Date End Date Sortor Catalina Gaspar MD [address] [address] PCP - General 12/08/02 documented as of this encounter
--- OUTSIDE RECORDS SUMMARY | 2023-05-28 14:50 | External Medical Summary | Summary of Care ---
Author Name Unknown Organization [facility] Address [address] [place] [address] Phone [phone] Care Team Providers Care Craft Recruiter Name Role Phone Sortor Catalina Gaspar MD Primary Care Pro vider Reason for Visit * Reason Onset Date Comments Advice 05/17/2023 Rev with Danny Encounter Details Date Type Department Care Team (Late st Contact Info) Description 05/17/2023 Telephone Gynecology/Obstetrics [facility] [address] [place] [address] Juan Delgado MD [address] [place] [address] Advice (Rev with Danny ) Allergies No known active allergiesdocumented as of this encounter (statuses as of 05/17/2023) Medications Medication Sig Dispensed Refills Start Date [...] as of this encounter (statuses as of 05/17/2023) Active Problems Problem Noted Date Diagnosed Date [...] patients who previously received 17P. Patient's primary UPHOLSTERY ESTIMATOR can coordinate therapy if desired. For patients with a history of delivery/prolonged PROM between or after 34 weeks, we do not recommend cervical length monitoring. Supervision of high risk in third trim mu 04/01/2023 with 30 completed weeks gestation 03/22 Gestational diabetes mellitus (GDM) in third [facility] 03/26/2023 Overview: Diagnosed at 30 weeks Nutrition [...] 04/01/23: MFM ADAPT consult complete. Enrolled in [facility]. Instructions provided to report blood sugars each week for MFM review 04/13/23-stable 04/21/23-stable 04/28/23-stable 05/03/23: RPM reviewed; blood sugars stable overall; continue diet controlled 05/12/23- stable Last Assessment & Plan: CONSIDERATIONS: Reviewed etiology [...] Recommend nutrition consult with RDN (Registered Dietitian Internet Sourcer). Lifestyle changes are also indicated including optimizing [...] as of this encounter (statuses as of 05/17/2023) Resolved Problems Problem Noted Date Diagnosed Date [...] as of this encounter (statuses as of 05/17/2023) Immunizations Name Administration Dates Next Due TDAP [...] money to get more. Never true 01/27/2023 [place] Depression Scale Answer Date Recorded [place] Depression Scale Total 4 04/26/2023 The thought [...] encounter Miscellaneous Notes * Telephone Encounter - Alexa Palomo RN - 05/17/2023 12:53 PM EST Spoke with Dr. Delgado and he recommended that he continue to monitor. Should try tylenol and heat. Spoke with pt. She is feeling better. They are every 5-6 min but not as intense.Advised to monitor and if getitng more intense. Advised to push fluids, monitor for movements and noting these to be less, should call back. Pt agreeable. * Telephone Encounter - Alexa Palomo RN - 05/17/2023 11:14 AM EST Pt called the office stating that she has been having back pain that comes and goes. Every 5-6 min for past 30-45 min. She has been wellhydrated. Feeling baby move but movements are not as intense. Still feeling it but has intense. Will review with Dr. Delgado. Pt can be reached at [phone] documented in this encounter Plan of Treatment Upcoming Encounters Date Type Department Care Team (Late st Contact Info) Description 05/19/2023 3:15 PM EST Office Visit Gynecology/Obstetrics [facility] [address] [place] [address] Oriana Watt CRNP [address] [place] [address] 05/24/2023 4:30 PM EST Office Visit Gynecology/Obstetrics [facility] [address] [place] [address] Kay Mills PA-C [address] [place] [address] 06/09/2023 10:30 AM EDT Office Visit Gynecology/Obstetrics [facility] [address] [place] [address] Yashira Bills CRNP [address] [place] [address] Health Maintenance Due Date Last Done Comments [...] filedocumented as of this encounter Care Teams Craft Recruiter Relationship Specialty Start Date End Date Sortor Catalina Gaspar MD [address] [facility] [address] [place] [address] PCP - General 12/08/02 documented as of this encounter
--- OUTSIDE RECORDS SUMMARY | 2023-05-28 14:51 | External Medical Summary | Summary of Care ---
Author Name Unknown Organization [facility] Address [address] [place] [address] Phone [phone] Care Team Providers Care Coating Mixer Tender Name Role Phone Sortor Catalina Gaspar MD Primary Care Pro vider Reason for Visit * Reason Onset Date Comments Referral 03/26/2023 Encounter Details Date Type Department Care Team (Late st Contact Info) Description 03/26/2023 Telephone Loss Prevention Coordinator Obstetrics [facility] [place] [address], [place] [id number] [place], Nurse Loss Prevention Coordinator [facility] [address] [place], [place] [id number] Referral Allergies No known active allergiesdocumented as of this encounter (statuses as of 03/26/2023) Medications Medication Sig Dispensed Refills Start Date End Date Status 19 29-1 MG Oral Tablet Take 1 Tablet by mouth in the morning. 0 Active Breast Pump Dispense double electric breast pump. Dx Z39.1 1 Each 0 08/28/2020 Active OneTouch Verio Flex System w/Device KitIndications:Gestat ional diabetes mellitus (GDM) in third trimester, gestational diabetes method of control unspecified Use to test blood sugars 4 times daily (fasting, 1 hour after breakfast, lunch, and dinner) 1 Kit 0 03/26/2023 Active OneTouch Verio In Vitro Strip (Glucose Blood)Indications:Ges tational diabetes mellitus (GDM) in third trimester, gestational diabetes method of control unspecified Use to test blood sugars 4 times daily (fasting, 1 hour after breakfast, lunch, and dinner) 125 Strip 6 03/26/2023 Active OneTouch Delica Lancets 30GIndications:Gestat ional diabetes mellitus (GDM) in third trimester, gestational diabetes method of control unspecified Use to test blood sugars 4 times daily (fasting, 1 hour after breakfast, lunch, and dinner) 200 Each 6 03/26/2023 Active documented as of this encounter (statuses as of 03/26/2023) Active Problems Problem Noted Date Diagnosed Date Gestational diabetes mellitus (GDM) in third tri mester 03/26/2023 Supervision of other normal , antepartu m 10/23/2022 H/O section 10/23/2022 Overview: C/s for breech delivery History of premature rupture of membrane s (PPROM) 10/23/2022 Overview: PPROM at 36w Estimated Date of Delivery Comme nts Yes 06/03/2023 Based on last me nstrual period of 08/27/2022 documented as of this encounter (statuses as of 03/26/2023) Resolved Problems Problem Noted Date Diagnosed Date [...] as of this encounter (statuses as of 03/26/2023) Immunizations Name Administration Dates Next Due TDAP [...] money to get more. Never true 01/27/2023 [place] Depression Scale Answer Date Recorded [place] Depression Scale Total 4 03/16/2023 The thought of harming myself has occurred to me . Never 03/16/2023 Estimated Date of Delivery Comme nts Yes [...] encounter Miscellaneous Notes * Telephone Encounter - Reyna Mcnair OSA - 03/26/2023 2:33 PM EST Talking to OB about getting seen in [facility] possibly * Telephone Encounter - Alexa Hastings MED ASSIST - 03/26/2023 2:20 PM EST Estimated Date of Delivery: 06/03/23 Please schedule for 45 MINUTE ADAPT WITH SUPPLIER RELATIONSHIP DIRECTOR, in time frame of within 1 week at location [facility] with the indication of GDM. Please schedule anatomy within 2-3 weeks. Referring Provider: Yashira Bills CRNP documented in this encounter Plan of Treatment Upcoming Encounters Date Type Department Care Team (Late st Contact Info) Description 03/29/2023 4:30 PM EST Office Visit Gynecology/Obstetrics [facility] [address] [facility] [place] [address] Kay Mills PA-C [address] [place] [address] 04/01/2023 2:00 PM EST Telemedicine Dionne Lopezs [address] [place] [address] Alycia Echeverria, JANY [address] [place] [address] 04/01/2023 3:30 PM EST Telemedicine Loss Prevention Coordinator Obstetrics [facility] [place] [address] [place] [address] Tequila Valencia CRNP [address] [place] [address] 04/12/2023 2:15 PM EST Office Visit Gynecology/Obstetrics [facility] [address] [place] [address] Oriana Watt CRNP [address] [place] [address] 04/26/2023 3:00 PM EST Office Visit Gynecology/Obstetrics [facility] [address] [place] [address] Chente Garcia MD [address] [place] [address] 05/10/2023 3:00 PM EST Office Visit Gynecology/Obstetrics [facility] [address] [place] [address] Chente Garcia MD [address] [place] [address] 05/19/2023 3:15 PM EST Office Visit Gynecology/Obstetrics [facility] [address] [place] [address] Oriana Watt CRNP [address] [place] [address] 05/24/2023 4:30 PM EST Office Visit Gynecology/Obstetrics Greg Esquivel [address] [place] [address] Kay Mills PA-C [address] [place] [address] Health Maintenance Due Date Last Done Comments [...] filedocumented as of this encounter Care Teams Coating Mixer Tender Relationship Specialty Start Date End Date Catalina Piña MD [address] [facility] [address] [place] [address] PCP - General 12/08/02 documented as of this encounter
--- OUTSIDE RECORDS SUMMARY | 2023-05-28 14:51 | External Medical Summary | Summary of Care ---
Author Name Unknown Organization [facility] Address [address] [place] [address] Phone [phone] Care Team Providers Care [place] Name Role Phone Sortor Catalina Gaspar MD Primary Care Pro vider Reason for Visit * Reason Comments Return Visit Encounter Details Date Type Department Care Team (Late st Contact Info) Description 04/26/2023 3:00 PM EST Office Visit Gynecology/Obstetric [facility] [address] [place] [address] Chente Garcia MD [address] [place] [address] Supervision of other normal , antepartum*; H/O section; History of premature rupture of membranes (PPROM); Insulin controlled gestational diabetes mellitus (GDM) in third trimester; History of delivery, currently Allergies No known active allergiesdocumented as of this encounter (statuses as of 04/26/2023) Medications Medication Sig Dispensed Refills Start Date [...] as of this encounter (statuses as of 04/26/2023) Active Problems Problem Noted Date Diagnosed Date [...] patients who previously received 17P. Patient's primary TUBE LANCER can coordinate therapy if desired. For patients with a history of delivery/prolonged PROM between or after 34 weeks, we do not recommend cervical length monitoring. Supervision of high risk in third trim mu 04/01/2023 with 30 completed weeks gestation 03/22 [facility]ational diabetes [facility] (G[facility]) [facility] third [facility] 03/26/2023 Overview: Diagnosed at 30 weeks Nutrition [...] Recommend nutrition consult with RDN (Registered Dietitian Bartender). Lifestyle changes are also indicated including optimizing [...] as of this encounter (statuses as of 04/26/2023) Resolved Problems Problem Noted Date Diagnosed Date Resolved Date Carrier of group B Streptococcus 10/11/2020 11/19/2020 Overview: Abx in labor Encounter for supervision of normal first in first trimester 04/29/2020 10/17/2020 Overview: Labs in care everwhere: A+ ABS neg H/H 36.5 Rubella non-immune RPR neg Hep B neg HIV Neg GC/CT/Trich neg/neg/neg MSAFP neg Materniti 21 (neg per patient)awaiting records Rubella non-immune status, antepartum 04/09/2020 10/17/2020 documented as of this encounter (statuses as of 04/26/2023) Immunizations Name Administration Dates Next Due TDAP [...] money to get more. Never true 01/27/2023 [place] Depression Scale Answer Date Recorded [place] Depression Scale Total 4 04/26/2023 The thought [...] Sign Reading Time Taken Comments Blood Pressure 92/68 04/26/2023 3:00 PM EST Pulse - - Temperature - - Respiratory Rate - - Oxygen Saturation - - Inhaled Oxygen Concentration - - Weight 98 kg (216 lb) 04/26/2023 3:00 PM EST Height 167.6 cm (5' 6") 04/26/2023 3:00 PM EST Body Mass Index 34.86 04/26/2023 3:00 PM EST documented in this encounter Progress Notes * Chente Garcia MD - 04/26/2023 3:34 PM EST Pt doing well No complaints RTC 2 weeks documented in this encounter Nursing Notes * Dot Jay LPN - 04/26/2023 4:10 PM EST 34w4d Denies concerns. US today. documented in this encounter Plan of Treatment Upcoming Encounters Date Type Department Care Team (Late st Contact Info) Description 05/10/2023 3:00 PM EST Office Visit Gynecology/Obstetrics [facility] [address] [place] [address] Chente Garcia MD [address] [place] [address] 05/19/2023 3:15 PM EST Office Visit Gynecology/Obstetrics [facility] [address] [place] [address] Oriana Watt CRNP [address] [place] [address] 05/24/2023 4:30 PM EST Office Visit Gynecology/Obstetrics [facility] [address] [place] [address] Kay Mills PA-C [address] [place] [address] 06/09/2023 10:30 AM EDT Office Visit Gynecology[facility]Obstetrics [facility] [address] [place] [address] Yashira Bills CRNP [address] [place] [address] Health Maintenance Due Date Last Done Comments [...] labor documented in this encounter Care Teams [place] Relationship Specialty Start Date End Date Sortor Catalina Gaspar MD [address] [address] PCP - General 12/08/02 documented as of this encounter
--- OUTSIDE RECORDS SUMMARY | 2023-05-28 14:51 | External Medical Summary | Summary of Care ---
Author Name Unknown Organization [facility] Address [address] [place] [address] Phone [phone] Care Team Providers Care Medical Corps Officer Name Role Phone Sortor Catalina Gaspar MD Primary Care Pro vider Reason for Visit * Reason Comments Return Visit Encounter Details Date Type Department Care Team (Late st Contact Info) Description 04/12/2023 2:15 PM EST Office Visit Gynecology/Obstetric s [facility] [address] [place] [address] Oriana Watt CRNP [address] [place] [address] Supervision of other normal , antepartum*; H/O section; History of premature rupture of membranes (PPROM); Diet controlled gestational diabetes mellitus (GDM) in third trimester; History of delivery, currently Allergies No known active allergiesdocumented as of this encounter (statuses as of 04/12/2023) Medications Medication Sig Dispensed Refills Start Date [...] as of this encounter (statuses as of 04/12/2023) Active Problems Problem Noted Date Diagnosed Date [...] patients who previously received 17P. Patient's primary CORRAL BOSS can coordinate therapy if desired. For patients with a history of delivery/prolonged PROM between or after 34 weeks, we do not recommend cervical length monitoring. Supervision of high risk in third trim mu 04/01/2023 with 30 completed weeks gestation 03/22 Gestational diabetes mellitus (GDM) in third [facility] 03/26/2023 Overview: Diagnosed at 30 weeks Nutrition [...] blood sugars each week for MFM review Last Assessment & Plan: CONSIDERATIONS: Reviewed etiology [...] Recommend nutrition consult with RDN (Registered Dietitian Carton Filler). Lifestyle changes are also indicated including optimizing [...] as of this encounter (statuses as of 04/12/2023) Resolved Problems Problem Noted Date Diagnosed Date [...] as of this encounter (statuses as of 04/12/2023) Immunizations Name Administration Dates Next Due TDAP [...] money to get more. Never true 01/27/2023 [place] Depression Scale Answer Date Recorded [place] Depression Scale Total 4 03/16/2023 The thought [...] Sign Reading Time Taken Comments Blood Pressure 112/64 04/12/2023 2:04 PM EST Pulse - - Temperature - - Respiratory Rate - - Oxygen Saturation - - Inhaled Oxygen Concentration - - Weight 98.9 kg (218 lb) 04/12/2023 2:04 PM EST Height 167.6 cm (5' 6") 04/12/2023 2:04 PM EST Body Mass Index 35.19 04/12/2023 2:04 PM EST documented in this encounter Progress Notes * Oriana Watt CRNP - 04/12/2023 2:28 PM EST 32w4d No concerns. Baby is active. No contractions, bleeding, or LOF. Dx with GDM, blood sugars are all in range. Still needs c/s scheduled, Ashley will call her. U/s with next visit to evaluate renal pelvis. ZENAIDA Hay * Marni Singh LPN - 04/12/2023 2:04 PM EST 32w4d Denies any issues documented in this encounter Plan of Treatment Upcoming Encounters Date Type Department Care Team (Late st Contact Info) Description 04/26/2023 2:00 PM EST Imaging Radiology [facility] [address] [place] [address] 04/26/2023 3:00 PM EST Office Visit Gynecology/Obstetrics [facility] [address] [place] [address] Chente Garcia MD [address] [place] [address] 05/10/2023 3:00 PM EST Office Visit Gynecology/Obstetrics [facility] [address] [place] [address] Chente Garcia MD [address] [place] [address] 05/19/2023 3:15 PM EST Office Visit Gynecology/Obstetrics [facility] [address] [place] [address] Oriana Watt CRNP [address] [place] [address] 05/24/2023 4:30 PM EST Office Visit Gynecology/Obstetrics [facility] [address] [place] [address] Kay Mills PA-C [address] [place] [address] Scheduled Orders Name Type Priority Associated Diagnoses Orde r Schedule US PREG FOLLOW-UP EACH FETUS Medical Imaging Routine Supervision of other normal , antepartum Diet controlled gestational diabetes mellitus (GDM) in third trimester Expected: 04/26/2023 (Approximate), Expires: 05/13/2024 Health Maintenance Due Date Last Done Comments [...] labor documented in this encounter Care Teams Medical Corps Officer Relationship Specialty Start Date End Date Sortor Catalina Gaspar MD [facility] [address] [address] PCP - General 12/08/02 documented as of this encounter
--- OUTSIDE RECORDS SUMMARY | 2023-05-28 14:51 | External Medical Summary | Summary of Care ---
Author Name Unknown Organization [facility] Address [address] [place] [address] Phone [phone] Care Team Providers Care Slice Cutting Machine Operator Name Role Phone Sortor Catalina Gaspar MD Primary Care Pro vider Reason for Visit * Reason Onset Date Comments Other 04/21/2023 Encounter Details Date Type Department Care Team (Late st Contact Info) Description 04/21/2023 Telephone Gynecology/Obstetrics [facility] [address] [place] [address] Services, Scheduling [address] [place] [address] Other Allergies No known active allergiesdocumented as of this encounter (statuses as of 04/22/2023) Medications Medication Sig Dispensed Refills Start Date End Date Status 19 29-1 MG Oral Tablet Take 1 Tablet by mouth in the morning. 0 Active Breast Pump Dispense double electric breast pump. Dx Z39.1 1 Each 0 08/28/2020 Active Additional Information Patient not taking.Reported on 04/01/2023 [employer] Flex System w/Device KitIndications:Gest ational diabetes mellitus (GDM) in third trimester, gestational diabetes method of control unspecified Use to test blood sugars 4 times daily (fasting, 1 hour after breakfast, lunch, and dinner) 1 Kit 0 03/26/2023 Active [employer] Verio In Vitro Strip (Glucose Blood)Indications:G estational [...] as of this encounter (statuses as of 04/22/2023) Active Problems Problem Noted Date Diagnosed Date [...] patients who previously received 17P. Patient's primary INPUT OUTPUT CLERK can coordinate therapy if desired. For patients [...] Recommend nutrition consult with RDN (Registered Dietitian Sewer Cleaner). Lifestyle changes are also indicated including optimizing [...] as of this encounter (statuses as of 04/22/2023) Resolved Problems Problem Noted Date Diagnosed Date [...] as of this encounter (statuses as of 04/22/2023) Immunizations Name Administration Dates Next Due TDAP [...] money to get more. Never true 01/27/2023 [place] Depression Scale Answer Date Recorded [place] Depression Scale Total 4 03/16/2023 The thought [...] encounter Miscellaneous Notes * Telephone Encounter - Ashley Del Castillo OSA - 04/22/2023 9:48 AM EST Pt scheduled 06/01 * Telephone Encounter - Ramana Centeno OSA - 04/21/2023 8:09 AM EST Patient is calling to set up date as she has not heard back regarding that. I could not get through for pt. Please advise and assist. Thank you. documented in this encounter Plan of Treatment Upcoming Encounters Date Type Department Care Team (Late st Contact Info) Description 04/26/2023 2:00 PM EST Imaging Radiology [facility] [address] [place] [address] 04/26/2023 3:00 PM EST Office Visit Gynecology/Obstetrics [facility] [address] [place] [address] Chente Garcia MD [address] [place] [address] 05/10/2023 3:00 PM EST Office Visit Gynecology/Obstetrics [facility] [address] [place] [address] Chente Garcia MD [address] [place] [address] 05/19/2023 3:15 PM EST Office Visit Gynecology/Obstetrics [facility] [address] [place] [address] Oriana Watt CRNP [address] [place] [address] 05/24/2023 4:30 PM EST Office Visit Gynecology/Obstetrics [facility] [address] [place] [address] Kay Mills PA-C [address] [place] [address] 06/09/2023 10:30 AM EDT Office Visit Gynecology/Obstetrics [facility] [address] [place] [address] Yashira Bills CRNP [address] [place] [address] Health Maintenance Due Date Last Done Comments [...] filedocumented as of this encounter Care Teams Slice Cutting Machine Operator Relationship Specialty Start Date End Date Sortor Catalina Gaspar MD [address] [address] PCP - General 12/08/02 documented as of this encounter
--- OUTSIDE RECORDS SUMMARY | 2023-05-28 14:51 | External Medical Summary | Summary of Care ---
Author Name Unknown Organization [facility] Address [address] [place] [address] Phone [phone] Care Team Providers Care Brand Protection Manager Name Role Phone Sortor Catalina Gaspar MD Primary Care Pro vider Reason for Visit * Reason Onset Date Comments Home Monitoring Orders Only 04/02/2023 Encounter Details Date Type Department Care Team (Late st Contact Info) Description 04/02/2023 Home Monitoring Public Health Sanitarian Technician Obstetrics [facility], [place] [address] [place] [address] Tequila Valencia CRNP [address] [place], [place] [id number] Gestational diabetes mellitus (GDM) in third trimester* Allergies No known active allergiesdocumented as of this encounter (statuses as of 04/02/2023) Medications Medication Sig Dispensed Refills Start Date [...] as of this encounter (statuses as of 04/02/2023) Active Problems Problem Noted Date Diagnosed Date [...] patients who previously received 17P. Patient's primary PARTY PLAN DEMONSTRATOR can coordinate therapy if desired. For patients with a history of delivery/prolonged PROM between or after 34 weeks, we do not recommend cervical length monitoring. Supervision of high risk in third trim mu 04/01/2023 with 30 completed weeks gestation 03/22 Gestational diabetes mellitus (GDM) in third [facility] 03/26/2023 Overview: Diagnosed at 30 weeks [...] 04/01/23: MFM ADAPT consult complete. Enrolled in Retail [employer]. Instructions provided to report blood sugars each [...] Recommend nutrition consult with RDN (Registered Dietitian Refrigeration Repair Supervisor). Lifestyle changes are also indicated including [...] as of this encounter (statuses as of 04/02/2023) Resolved Problems Problem Noted Date Diagnosed Date [...] as of this encounter (statuses as of 04/02/2023) Immunizations Name Administration Dates Next Due TDAP [...] money to get more. Never true 01/27/2023 [place] Depression Scale Answer Date Recorded [place] Depression Scale Total 4 03/16/2023 The thought [...] on file documented as of this encounter Progress Notes * Delmi Anguiano, Community Health Water Resource Manager - 04/02/2023 11:35 AM EST Patient has been successfully enrolled to the [id number] Diabetes Management in program. Standard alarm settings have been set as follows: Singular glucose level > 200 Singular glucose level < 60 Patient has been advised to take blood sugar four times a day (fasting upon waking, and one hour after each meal). Patient has been oriented to remote patient monitoring, assisted with initial device set-up, and provided with instruction and education regarding the program. Patient understands that this monitoring should not be used as a replacement for emergency and/or urgent care. If patient experiences any urgent symptoms, they are aware to call office/field identification specialist provider for additional instructions. In emergency situations, they will report directly to the ED for further evaluation. If you would like to customize the alert parameters and/or instructions for this patient, please let me know and we can have them changed. documented in this encounter Plan of Treatment Upcoming Encounters Date Type Department Care Team (Late st Contact Info) Description 04/12/2023 2:15 PM EST Office Visit Gynecology/Obstetrics [address] [place] [address] Oriana Watt CRNP [address] [place] [address] 04/26/2023 3:00 PM EST Office Visit Gynecology/Obstetrics [facility] [address] [place] [address] Chente Garcia MD [address] [place] [address] 05/10/2023 3:00 PM EST Office Visit Gynecology/Obstetrics [facility] [address] [place] [address] Chente Garcia MD [address] [place] [address] 05/19/2023 3:15 PM EST Office Visit Gynecology/Obstetrics [facility] [address] [place] [address] Oriana Watt CRNP [address] [place] [address] 05/24/2023 4:30 PM EST Office Visit Gynecology/Obstetrics [facility] [address] [place] [address] Kay Mills PA-C [address] [place] [address] Health Maintenance Due Date Last Done Comments [...] as of this encounter Visit Diagnoses Diagnosis Gestational diabetes mellitus (GDM) in third trimester- Primary documented in this encounter Care Teams Brand Protection Manager Relationship Specialty Start Date End Date Sortor Catalina Gaspar MD [address] [address] PCP - General 12/08/02 documented as of this encounter
--- OUTSIDE RECORDS SUMMARY | 2023-05-28 14:51 | External Medical Summary | Summary of Care ---
Author Name Unknown Organization [facility] Address [address] [place] [address] Phone [phone] Care Team Providers Care Sales Merchandising Specialist Name Role Phone Sortor Catalina Gaspar MD Primary Care Pro vider Reason for Visit * Reason Comments Return Visit Encounter Details Date Type Department Care Team (Late st Contact Info) Description 03/29/2023 4:30 PM EST Office Visit Gynecology/Obstetric s [facility] [address] [place] [address] Kay Mills PA-C [address] [place] [address] Supervision of other normal , antepartum*; H/O section; History of premature rupture of membranes (PPROM); Gestational diabetes mellitus (GDM) in third trimester, gestational diabetes method of control unspecified Allergies No known active allergiesdocumented as of this encounter (statuses as of 03/29/2023) Medications Medication Sig Dispensed Refills Start Date [...] as of this encounter (statuses as of 03/29/2023) Active Problems Problem Noted Date Diagnosed Date [...] as of this encounter (statuses as of 03/29/2023) Resolved Problems Problem Noted Date Diagnosed Date [...] as of this encounter (statuses as of 03/29/2023) Immunizations Name Administration Dates Next Due TDAP [...] money to get more. Never true 01/27/2023 [place] Depression Scale Answer Date Recorded [place] Depression Scale Total 4 03/16/2023 The thought [...] Sign Reading Time Taken Comments Blood Pressure 106/64 03/29/2023 4:24 PM EST Pulse - - Temperature - - Respiratory Rate - - Oxygen Saturation - - Inhaled Oxygen Concentration - - Weight 98.1 kg (216 lb 3.2 oz) 03/29/2023 4:24 P M EST Height 167.6 cm (5' 6") 03/29/2023 4:24 PM EST Body Mass Index 34.9 03/29/2023 4:24 PM EST documented in this encounter Progress Notes * Kay Mills PA-C - 03/29/2023 4:50 PM EST 30w4d Recently diagnosed with GDM. Has test strips and lancets. Looking to picking machine operator glucometer today was waiting on pharmacy. Asking about needed appointments. Reviewed nutrition, would like to wait for fewweeks on this. Recommend she keep adapt appointment and schedule ultrasound given new diagnosis of GDM as well as follow up on renal pelvis. She is agreeable to calling MFM back to schedule ultrasound. Given handout on eating well with GDM. Denies bleeding, leaking, contractions. Pos FM. Asking about baby's movements. Reviewed [facility], call if <10 movements in 2 hours. Pt reports getting 10 movements in 2 hours easily. Reports just feelsbaby's movements not as pronounced at times and more subtile. Has not yet schedule repeat C/S. Message sent to appeals reviewer veteran, Ashley. RTC in 2 week Kay Mills PA-C documented in this encounter Nursing Notes * Shanell Rueda RN - 03/29/2023 4:25 PM EST Patient here for OBEY 30w4d No bleeding/leaking/contractions +FM Brought FMLA paprwork today- given to Ashley documented in this encounter Plan of Treatment Upcoming Encounters Date Type Department Care Team (Late st Contact Info) Description 04/01/2023 3:30 PM EST Telemedicine Grizzly Worker Obstetrics Maternal Medicine, [place] [address] [place] [address] Tequila Valencia CRNP [address] [place] [address] 04/12/2023 2:15 PM EST Office Visit Gynecology/Obstetrics [facility] [address] Oriana Watt CRNP [address] [place] [address] 04/26/2023 3:00 PM EST Office Visit Gynecology/Obstetrics [facility] [address] [facility] [place] [address] Chente Garcia MD [address] [place] [address] 05/10/2023 3:00 PM EST Office Visit Gynecology/Obstetrics [facility] [address] [place] [address] Chente Garcia MD [address] [place] [address] 05/19/2023 3:15 PM EST Office Visit Gynecology/Obstetrics [facility] [address] [place] [address] Oriana Watt CRNP [address] [place] [address] 05/24/2023 4:30 PM EST Office Visit Gynecology/Obstetrics [facility] [address] [place] [address] Kay Mills PA-C [address] [place] [address] Health Maintenance Due Date Last Done Comments [...] trimester, gestational diabetes method of control unspecified documented in this encounter Care Teams Sales Merchandising Specialist Relationship Specialty Start Date End Date Sortor Catalina Gaspar MD [address] [facility] [address] [place] [address] PCP - General 12/08/02 documented as of this encounter
--- OUTSIDE RECORDS SUMMARY | 2023-05-28 14:51 | External Medical Summary | Summary of Care ---
Author Name Unknown Organization [facility] Address [address] [place] [address] Phone [phone] Care Team Providers Care Passenger Agent Name Role Phone Sortor Catalina Gaspar MD Primary Care Pro vider Reason for Visit * Reason Onset Date Comments Referral 03/26/2023 Encounter Details Date Type Department Care Team (Late st Contact Info) Description 03/26/2023 Telephone Fast Food Assistant Restaurant Manager Obstetrics [facility] Medicine, [place] [address] [place], [place] [phone] [place], Nurse Fast Food Assistant Restaurant Manager [facility] [address] [place], [place] [phone] Referral Allergies No known active allergiesdocumented as of this encounter (statuses as of 03/30/2023) Medications Medication Sig Dispensed Refills Start Date [...] as of this encounter (statuses as of 03/30/2023) Active Problems Problem Noted Date Diagnosed Date [...] as of this encounter (statuses as of 03/30/2023) Resolved Problems Problem Noted Date Diagnosed Date [...] as of this encounter (statuses as of 03/30/2023) Immunizations Name Administration Dates Next Due TDAP [...] money to get more. Never true 01/27/2023 [place] Depression Scale Answer Date Recorded [place] Depression Scale Total 4 03/16/2023 The thought [...] Miscellaneous Notes * Telephone Encounter - Alexa Hastings MED ASSIST - 03/30/2023 9:51 AM EST Patient currently scheduled for STRAIGHT TRUCK DRIVER consult 04/01/23 but will need ultrasound scheduled within 2-3 weeks as well. * Telephone Encounter - Reyna Mcnair OSA - 03/26/2023 2:33 PM EST Talking to OB about getting seen in [facility] possibly * Telephone Encounter - Alexa Hastings MED ASSIST - 03/26/2023 2:20 PM EST Estimated Date of Delivery: 06/03/23 Please schedule for 45 MINUTE ADAPT WITH STRAIGHT TRUCK DRIVER, in time frame of within 1 week at [facility] with the indication of GDM. Please schedule anatomy within 2-3 weeks. Referring Provider: Yashira Bills CRNP documented in this encounter Plan of Treatment Upcoming Encounters Date Type Department Care Team (Late st Contact Info) Description 04/01/2023 3:30 PM EST Telemedicine Fast Food Assistant Restaurant Manager Obstetrics [facility], [place] [address] [place] [address] Tequila Valencia CRNP [address] [place] [address] 04/12/2023 2:15 PM EST Office Visit Gynecology/Obstetrics [facility] [address] [place] [address] Oriana Watt CRNP [address] [place] [address] 04/26/2023 3:00 PM EST Office Visit Gynecology/Obstetrics [facility] [address] [place] [address] Chente Garcia MD [address] [place] [address] 05/10/2023 3:00 PM EST Office Visit Gynecology/Obstetrics [facility] [address] [place] [address] Chente Garcia MD [address] [place] [address] 05/19/2023 3:15 PM EST Office Visit Gynecology/Obstetrics [facility] [address] [place] [address] Oriana Watt CRNP [address] [place] [address] 05/24/2023 4:30 PM EST Office Visit Gynecology/Obstetrics [facility] [address] [place] [address] Kay Mills PA-C [address] [place] [address] Health Maintenance Due Date Last Done Comments [...] filedocumented as of this encounter Care Teams Passenger Agent Relationship Specialty Start Date End Date Sortor Catalina Gaspar MD [address] [facility] [address] [place] [address] PCP - General 12/08/02 documented as of this encounter
--- OUTSIDE RECORDS SUMMARY | 2023-05-28 14:51 | External Medical Summary | Summary of Care ---
Author Name Unknown Organization [facility] Address [address] [place] [address] Phone [phone] Care Team Providers Care [employer] Name Role Phone Sortor Catalina Gaspar MD Primary Care Pro vider Reason for Visit * Reason Onset Date Comments Test Results 03/16/2023 Encounter Details Date Type Department Care Team (Late st Contact Info) Description 03/16/2023 Telephone Gynecology/Obstetrics [facility] [address] [place] [address] Yashira Bills CRNP [address] [place] [address] Test Results Allergies No known active allergiesdocumented as of this encounter (statuses as of 03/16/2023) Medications Medication Sig Dispensed Refills Start Date End Date Status 19 29-1 MG Oral Tablet Take 1 Tablet by mouth in the morning. 0 Active Breast Pump Dispense double electric breast pump. Dx Z39.1 1 Each 0 08/28/2020 Active documented as of this encounter (statuses as of 03/16/2023) Active Problems Problem Noted Date Diagnosed Date Supervision of other normal , antepartu m 10/23/2022 H/O section 10/23/2022 Overview: C/s for breech delivery History of premature rupture of membrane s (PPROM) 10/23/2022 Overview: PPROM at 36w Estimated Date of Delivery Comme nts Yes 06/03/2023 Based on last me nstrual period of 08/27/2022 documented as of this encounter (statuses as of 03/16/2023) Resolved Problems Problem Noted Date Diagnosed Date [...] as of this encounter (statuses as of 03/16/2023) Immunizations Name Administration Dates Next Due TDAP [...] money to get more. Never true 01/27/2023 [place] Depression Scale Answer Date Recorded [place] Depression Scale Total 4 03/16/2023 The thought [...] Telephone Encounter - Alexa Palomo RN - 03/16/2023 1:37 PM EST Pt aware and agreeable instructions given appt made. She will check her vitamins and start an OTC iron if needed. * Telephone Encounter - Yashira Bills CRNP - 03/16/2023 1:13 PM EST Elevated 1 hr glucose - will need 3 hr GTT. Very mild anemia on CBC; make sure vitamin contains iron, or start OTC 325 mg iron supplement once a day. ZENAIDA Becker documented in this encounter Plan of Treatment Upcoming Encounters Date Type Department Care Team (Late st Contact Info) Description 03/26/2023 8:00 AM EST [facility] [address] [place] [id number] EsquivelRoscoe almendarez [address] [place] [address] 03/29/2023 4:30 PM EST Office Visit Gynecology/Obstetrics [facility] [address] [place] [address] Kay Mills PA-C [address] [place] [address] 04/12/2023 2:15 PM EST Office Visit Gynecology/Obstetrics [facility] [address] [place] [address] Oriana Watt CRNP [address] [place] [address] Scheduled Orders Name Type Priority Associated Diagnoses Orde r Schedule GESTATIONAL GLUCOSE TOLERANCE, 3 HOUR Lab Routine Elevated glucose tolerance test Expected: 03/16/2023 (Approximate), Expires: 03/16/2024 Health Maintenance Due Date Last Done Comments [...] as of this encounter Visit Diagnoses Diagnosis Elevated glucose tolerance test- Primary Impaired glucose tolerance test documented in this encounter Care Teams [employer] Relationship Specialty Start Date End Date Sortor Catalina Gaspar MD [address] [address] PCP - General 12/08/02 documented as of this encounter
--- OUTSIDE RECORDS SUMMARY | 2023-05-28 14:51 | External Medical Summary | Summary of Care ---
Author Name Unknown Organization [facility] Address [address] [place] [address] Phone [phone] Care Team Providers Care Hand Binder Stripper Name Role Phone Sortor Catalina Gaspar MD Primary Care Pro vider Reason for Referral * Evaluate & Treat - Unlimited Visits (Within 10 days (routine)) - Pending Review Specialty Diagnoses / Procedures Referred By Héctor jeter Referred To Contact Ornithology Teacher / Nutrition Services Diagnoses Gestational diabetes mellitus (GDM) in third trimester, gestational diabetes method of control unspecified Bobbyer, ZENAIDA Robles [address] [place] [address] Referral ID Status Reason Start Date Expiration Date Visits Requested Visits Authorized [id number] Pending Review Specialty Services Required 03/26/[phone] Question Answer Is the patient ? Yes Referral Priority Within 10 days (routine) Where should this appointment be scheduled? [facility] Comments This referral is for Diabetes Self-Management Training (DSMT) by a recognized [place] [employer] (ADA) conservation educator: Nurse (RN), Registered Dietitian Tin Dipper (RDN), and/or Diabetes Medical Nutrition Therapy (MNT) Management (dietitian only). Diabetes educators are responsible for assessing the participant's diabetes education needs, and providing diabetes self-management training in accordance with the standards set by the ADA for DSMT. Any adjustment in diabetes therapy will be made within the guidelines of standards of practice and [facility] approved policies and procedures. I understand that the conservation educator will keep me informed. Areas of Education: Pathophysiology Nutrition Physical Activity Medications Monitoring Acute Complications Chronic Complications Psychosocial Management Promote Health/Behavior Change Participant will be offered 1:1 education training if there is a lack of classes available within 2 months. Providers can also order 1:1 training if indicated for participant for the following reasons: 1:1 Training for Insulin Initiation Participant Inappropriate for Class Setting By my electronic signature, I understand that my patient will be offered the comprehensive ADA content area above unless deemed not appropriate of I specify otherwise here: * Evaluate & Treat - Unlimited Visits (Within 10 days (routine)) - Pending Review Specialty Diagnoses / Procedures Referred By Héctor jeter Referred To Contact Obstetrics/Gynecology / Maternal Medicine Diagnoses Gestational diabetes mellitus (GDM) in third trimester, gestational diabetes method of control unspecified Yashira Bills CRNP [address] [place] [address] Referral ID Status Reason Start Date Expiration Date Visits Requested Visits Authorized [id number] Pending Review Specialty Services Required 03/26/[phone] Question Answer Referral Priority Within 10 days (routine) Has the patient had a viability scan? Yes Date performed 10/23/2022 Location performed Radiology Reason for referral Diabetes Diabetes type Gestational Where should this appointment be scheduled? [facility] Comments /Para: LMP: Patient's last menstrual period was 08/27/2022. Patient is . MARIELOS: 06/03/2023, by Last Menstrual Period Pre-Gravid BMI: 29.39 Reason for Visit * Reason Onset Date Comments Test Results 03/26/2023 Encounter Details Date Type Department Care Team (Late st Contact Info) Description 03/26/2023 Telephone Gynecology/Obstetrics [facility] [address] [place] [address] BackerYashira CRNP [address] [place] [address] Test Results Allergies No known active allergiesdocumented as of this encounter (statuses as of 03/26/2023) Medications Medication Sig Dispensed Refills Start Date End Date Status 19 29-1 MG Oral Tablet Take 1 Tablet by mouth in the morning. 0 Active Breast Pump Dispense double electric breast pump. Dx Z39.1 1 Each 0 08/28/2020 Active Nu-Pulseio Flex System w/Device KitIndications:Gestat ional diabetes mellitus (GDM) in third trimester, gestational diabetes method of control unspecified Use to test blood sugars 4 times daily (fasting, 1 hour after breakfast, lunch, and dinner) 1 Kit 0 03/26/2023 Active Astro Ape In Vitro Strip (Glucose Blood)Indications:Ges tational diabetes mellitus (GDM) in third trimester, gestational diabetes method of control unspecified Use to test blood sugars 4 times daily (fasting, 1 hour after breakfast, lunch, and dinner) 125 Strip 6 03/26/2023 Active InSupply Delica Lancets 30GIndications:Gestat ional diabetes mellitus (GDM) in third trimester, gestational diabetes method of control unspecified Use to test blood sugars 4 times daily (fasting, 1 hour after breakfast, lunch, and dinner) 200 Each 6 03/26/2023 Active documented as of this encounter (statuses as of 03/26/2023) Active Problems Problem Noted Date Diagnosed Date Gestational diabetes mellitus (GDM) in third [facility] 03/26/2023 Supervision of other normal , antepartu [...] money to get more. Never true 01/27/2023 [place] Depression Scale Answer Date Recorded [place] Depression Scale Total 4 03/16/2023 The thought [...] encounter Miscellaneous Notes * Telephone Encounter - Shanell Rueda RN - 03/26/2023 11:29 AM EST Patient called and made aware of results. Patient verbalized understanding to all. Is agreeable to beginning checking sugars now. Patient will pick things up from pharmacy. Patent advised to call with any questions. * Telephone Encounter - Yashira Bills CRNP - 03/26/2023 11:10 AM EST She has 2 elevated glucose readings, which diagnoses GDM. Will need to check blood sugars 4x/day: AM fasting (8-10 hr fast) with goal <95, and 1 hr after starting each meal, goal <140. Can start testing sugars now if comfortable, or wait until she meets with MFM. Bring recorded readings to all appointments. Sending a referral to MFM for management and to parent educator, and sending supplies to pharmacy. ZENAIDA Becker documented in this encounter Plan of Treatment Upcoming Encounters Date Type Department Care Team (Late st Contact Info) Description 03/29/2023 4:30 PM EST Office Visit Gynecology/Obstetrics [facility] [address] [place] [address] Kay Mills PA-C [address] [place] [address] 04/12/2023 2:15 PM EST Office Visit Gynecology/Obstetrics [facility] [address] [place] [address] Oriana Watt CRNP [address] [place] [address] 04/26/2023 3:00 PM EST Office Visit Gynecology/Obstetrics [facility] [address] [place] [address] Chente Garcia MD [address] [place] [address] 05/10/2023 3:00 PM EST Office Visit Gynecology/Obstetrics [facility] [address] [place] [address] Chente Garcia MD [address] [place] [address] 05/19/2023 3:15 PM EST Office Visit Gynecology/Obstetrics [facility] [address] [place] [address] Oriana Watt CRNP [address] [place] [address] 05/24/2023 4:30 PM EST Office Visit Gynecology/Obstetrics [facility] [address] [place] [address] Kay Mills PA-C [address] [place] [address] Scheduled Orders Name Type Priority Associated Diagnoses Orde r Schedule MFM US MATERNAL 1ST FETUS Medical Imaging Routine Gestational diabetes mellitus (GDM) in third trimester, gestational diabetes method of control unspecified Other specified related conditions, third trimester Expected: 04/02/2023 (Approximate), Expires: 04/26/2024 Scheduled Referrals Name Type Priority Associated Diagnoses Orde r Schedule MATERNAL MEDICINE REFERRAL OP Referral Within 10 days (routine) Gestational diabetes mellitus (GDM) in third trimester, gestational diabetes method of control unspecified Ordered: 03/26/2023 DIABETES MANAGEMENT EDUCATION (ADA) REFERRAL Referral Within 10 days (routine) Gestational diabetes mellitus (GDM) in third trimester, gestational diabetes method of control unspecified Ordered: 03/26/2023 Health Maintenance Due Date Last Done Comments [...] Diagnosis Gestational diabetes mellitus (GDM) in third trimester, gestational diabetes method of control unspecified- Primary Other specified related conditions, third trimester documented in this encounter Care Teams Hand Binder Stripper Relationship Specialty Start Date End Date Sortor Catalina Gaspar MD [address] [address] PCP - General 12/08/02 documented as of this encounter
--- OUTSIDE RECORDS SUMMARY | 2023-05-28 14:51 | External Medical Summary | Summary of Care ---
Author Name Unknown Organization [facility] Address [address] [place] [address] Phone [phone] Care Team Providers Care [employer] Mill Worker Name Role Phone Sortor Catalina Gaspar MD Primary Care Pro vider Reason for Visit * Reason Comments Return Visit Encounter Details Date Type Department Care Team (Late st Contact Info) Description 03/29/2023 4:30 PM EST Office Visit Gynecology/Obstetric s [facility] [address] [place] [address] Kat Mills PA-C [address] [place] [address] Supervision of other normal , antepartum*; H/O section; History of premature rupture of membranes (PPROM); Gestational diabetes mellitus (GDM) in third trimester, gestational diabetes method of control unspecified Allergies No known active allergiesdocumented as of this encounter (statuses as of 03/31/2023) Medications Medication Sig Dispensed Refills Start Date End Date Status 19 29-1 MG Oral Tablet Take 1 Tablet by mouth in the morning. 0 Active Breast Pump Dispense double electric breast pump. Dx Z39.1 1 Each 0 08/28/2020 Active OneTouch Verio Flex System w/Device KitIndications:Gesta tional diabetes mellitus (GDM) in third trimester, gestational diabetes method of control unspecified Use to test blood sugars 4 times daily (fasting, 1 hour after breakfast, lunch, and dinner) 1 Kit 0 03/26/2023 Active OneTouch Verio In Vitro Strip (Glucose Blood)Indications:Ge stational diabetes mellitus (GDM) in third trimester, gestational diabetes method of control unspecified Use to test blood sugars 4 times daily (fasting, 1 hour after breakfast, lunch, and dinner) 125 Strip 6 03/26/2023 Active OneTouch Delica Lancets 30GIndications:Gesta tional diabetes mellitus (GDM) in third trimester, gestational diabetes method of control unspecified Use to test blood sugars 4 times daily (fasting, 1 hour after breakfast, lunch, and dinner) 200 Each 6 03/26/2023 Active Breast PumpIndications:Supe rvision of other normal , antepartum For lactating mother to breastfeed infant 1 Each 0 03/31/2023 Active documented as of this encounter (statuses as of 03/31/2023) Active Problems Problem Noted Date Diagnosed Date [...] as of this encounter (statuses as of 03/31/2023) Resolved Problems Problem Noted Date Diagnosed Date [...] as of this encounter (statuses as of 03/31/2023) Immunizations Name Administration Dates Next Due TDAP [...] money to get more. Never true 01/27/2023 [place] Depression Scale Answer Date Recorded [place] Depression Scale Total 4 03/16/2023 The thought [...] documented in this encounter Progress Notes * Kat Mills PA-C - 03/29/2023 4:50 PM EST 30w4d Recently diagnosed with GDM. Has test strips and lancets. Looking to olive picker glucometer today was waiting on pharmacy. Asking [...] yet schedule repeat C/S. Message sent to home care scheduler, Ashley. RTC in 2 week Kat Mills PA-C documented in this encounter Nursing Notes * Shanell Rueda RN - 03/29/2023 4:25 PM EST Patient here for OBEY 30w4d No bleeding/leaking/contractions +FM Brought FMLA paprwork today- given to Ashley documented in this encounter Miscellaneous Notes * Addendum Note - Kat Mills PA-C - 03/31/2023 8:46 AM ESTAddended by: KAT MILLS on: 03/31/2023 08:46 AM Modules accepted: Orders documented in this encounter Plan of Treatment Upcoming Encounters Date Type Department Care Team (Late st Contact Info) Description 04/01/2023 3:30 PM EST Telemedicine Fractionation Plant Supervisor Obstetrics Maternal Medicine, [place] [address] [place] [address] Tequila Valencia CRNP [address] [facility] [place] [address] 04/12/2023 2:15 PM EST Office Visit Gynecology/Obstetrics [facility] [address] [facility] [place] [address] Oriana Watt CRNP [address] [place] [address] 04/26/2023 3:00 PM EST Office Visit Gynecology/Obstetrics [facility] [address] [place] [address] Chente Garcia MD [address] [place] [address] 05/10/2023 3:00 PM EST Office Visit Gynecology/Obstetrics [facility] [address] [place] [address] Chente Garcia MD [address] [place] [address] 05/19/2023 3:15 PM EST Office Visit Gynecology/Obstetrics [facility] [address] [place] [address] Oriana Watt CRNP [address] [place] [address] 05/24/2023 4:30 PM EST Office Visit Gynecology/Obstetrics [facility] [address] [place] [address] Kat Mills PA-C [address] [place] [address] Health Maintenance Due Date Last Done Comments [...] unspecified documented in this encounter Care Teams Hot Mill Worker Relationship Specialty Start Date End Date Sortor Catalina Gaspar MD [address] [address] PCP - General 12/08/02 documented as of this encounter
--- OUTSIDE RECORDS SUMMARY | 2023-05-28 14:51 | External Medical Summary ---
Author Name Unknown Address Unknown Organization K0[facility] [place] [address] [place] [address] Laboratory Report Ordering Provider Test Date Status ELEUTERIO BARNES 03/26/2023 08:03:01 Final Based on ACOG guideline, ges tational diabetes mellitus is diagnosed when any of the following is met:
Fasting is greater than or equal to 95 mg/dL
1 hour is greater than or equal to 180 mg/dL
2 hour is greater than or equal to 155 mg/dL
3 hour is greater than or equal to 140 mg/dL Observation Date Value Abnormality Reference (Units ) Status Glucose, fasting 03/26/2023 08:03:01 85 70- 94 (mg/dL) Final Performing Location [facility] [place] [address] [place] [address]
--- OUTSIDE RECORDS SUMMARY | 2023-05-28 14:51 | External Medical Summary | Summary of Care ---
Author Name Unknown Organization [facility] Address [address] [place] [address] Phone [phone] Care Team Providers Care Fashion Merchandiser Name Role Phone Sortor Catalina Gaspar MD Primary Care Pro vider Reason for Referral * Evaluate & Treat - Unlimited Visits (Within 3 days (urgent)) - Pending Review Specialty Diagnoses / Procedures Referred By Contac t Referred To Contact Mobile Product Manager Diagnoses Diet controlled gestational diabetes mellitus (GDM) in third trimester Tequila Valencia CRNP [address] [place] [address] Referral ID Status Reason Start Date Expiration Date Visits Requested Visits Authorized [id number] Pending Review Specialty Services Required 04/01/2023 1 1 Question Answer Referral Priority Within 3 days (urgent) Where should this appointment be scheduled? [facility] Program Type Chronic Disease Management Chronic Disease Management Diabetes in Alarm Settings Standard per protocol Comments OneTouch Verio Reason for Visit * Reason Comments Consultation Gestational diabetes * Evaluate & Treat - Unlimited Visits (Within 10 days (routine)) - Authorized Specialty Diagnoses / Procedures Referred By Contac t Referred To Contact Obstetrics/Gynecology / Maternal Medicine Diagnoses Gestational diabetes mellitus (GDM) in third trimester, gestational diabetes method of control unspecified Yashira Bills CRNP [address] [place] [address] Referral ID Status Reason Start Date Expiration Date Visits Requested Visits Authorized [id number] Authorized Specialty Services Required 03/26/2023 03/26/2024 [id number] Encounter Details Date Type Department Care Team (Late st Contact Info) Description 04/01/2023 3:30 PM EST Telemedicine Cantilever Crane Operator Obstetrics Maternal Medicine, [place] [address] [place] [address] Tequila Valencia CRNP [address] [place] [address] Diet controlled gestational diabetes mellitus (GDM) in third trimester*; History of delivery, currently ; Supervision of high risk in third trimester; with 30 completed weeks gestation Allergies No known active allergiesdocumented as of this encounter (statuses as of 04/01/2023) Medications Medication Sig Dispensed Refills Start Date [...] as of this encounter (statuses as of 04/01/2023) Active Problems Problem Noted Date Diagnosed Date [...] patients who previously received 17P. Patient's primary PLASTICS NURSE can coordinate therapy if desired. For patients with a history of delivery/prolonged PROM between or after 34 weeks, we do not recommend cervical length monitoring. Supervision of high risk in [facility] 04/01/2023 with 30 completed weeks gestation 03/22 Gestational diabetes mellitus (GDM) in [facility] 03/26/2023 Overview: Diagnosed at 30 [...] Recommend nutrition consult with RDN (Registered Dietitian Environmental Services Associate). Lifestyle changes are also indicated including optimizing [...] as of this encounter (statuses as of 04/01/2023) Resolved Problems Problem Noted Date Diagnosed Date [...] as of this encounter (statuses as of 04/01/2023) Immunizations Name Administration Dates Next Due TDAP [...] money to get more. Never true 01/27/2023 [place] Depression Scale Answer Date Recorded [place] Depression Scale Total 4 03/16/2023 The thought [...] as of this encounter Progress Notes * Tequila Valencia CRNP - 04/01/2023 3:50 PM EST MATERNAL MEDICINE CONSULT Nikita Dang Consult date: 04/01/23 REFERRING PROVIDER: ZENAIDA Walls Patient location: HOME. I was in a hospital or clinic location. After connecting through [employer],patient was verified with two unique identifiers. Patient (or authorized legal community health representative) was then informed that this was a Telemedicine visit and being conducted confidentially over secure lines. Methods to assure confidentiality were taken. Patient acknowledged consent and understanding of pr ivacy and security of the Telemedicine visit. The patient agreed to participate. Nikita Dang is a 27 year old with intrauterine at 31w0d (Estimated Date of Delivery: 06/03/23 by exact LMP) who presents today for an MFM consult due to gestational diabetes and history of delivery. HPI/CURRENT : pre- BMI=overweight (82.6 kg (182 lb); 5' 6"); FOB J Luis; complicated by above. Genetic testing: Low Risk Cell Free DNA and MSAFP was negative OB Dionne Esquivel Problems (from 10/22/22 to present) Problem Noted Resolved History of delivery, currently 04/01/2023 by Tequila Valencia CRNP No Overview Signed 04/01/2023 3:55 PM by Tequila Valencia CRNP First , 2020 PPROM with subsequent labor at 36w4d Primary due to breech presentation Gestational diabetes mellitus (GDM) in third trimester 03/26/2023 by Yashira Bills CRNP No Overview Addendum 04/01/2023 3:53 PM by Tequila Valencia CRNP Diagnosed at 30 weeks Nutrition consult ordered [...] blood sugars each week for MFM review History of premature rupture of membranes (PPROM) 10/23/2022 by Oriana Watt CRNP No Overview Signed 10/23/2022 1:42 PM by Oriana Watt CRNP PPROM at 36w I have reviewed this patient's previous OB ultrasound reports, pertinent labwork and testing provided by her referring OB provider. Current Outpatient Medications Medication Sig Dispense Refill Breast Pump Dispense double electric breast pump. Dx Z39.1 (Patient not taking: Reported on 04/01/2023) 1 Each 0 Breast Pump For lactating mother to breastfeed (Patient not taking: Reported on 04/01/2023) 1Each 0 ComecerTouch Delica Lancets 30G Use to test blood sugars 4 times daily (fasting, 1 hour after breakfast, lunch, and dinner) 200 Each 6 OneTouch Verio Flex System w/Device Kit Use to test blood sugars 4 times daily (fasting, 1 hour after breakfast, lunch, and dinner) 1 Kit 0 OneTouch Verio In Vitro Strip (Glucose Blood) Use to test blood sugars 4 times daily (fasting, 1 hour after breakfast, lunch, and dinner) 125 Strip 6 19 29-1 MG Oral Tablet Take 1 Tablet by mouth in the morning. No current facility-administered medications for this visit. Review of patient's allergies indicates: No Known Allergies OB History Para Term AB Living 2 1 0 1 0 1 SAB IAB Ectopic Multiple Live Births 0 0 0 0 1 # Outcome Date GA Lbr Alli/2nd Weight Sex Delivery Anes PTL Lv 2 Current 1 10/10/20 36w4d 3.066 kg (6 lb 12.2 oz) F CS-LTranv N ANTONIA Complications: labor, Breech presentation Obstetric Comments 2020, 2023: FOB #1 J Luis, age 29, healthy Past Medical History: Diagnosis Date Gestational diabetes mellitus (GDM) in third trimester 03/26/2023 Past Surgical History: Procedure Laterality Date ANESTH, CS DELIVERY 10/10/2020 CO APPENDECTOMY 04/2022 CO TONSILLECTOMY AND ADENOIDECTOMY: UNDER AGE 10 1998 REMOVE GALLBLADDER 2010 No family history on file. Social History Tobacco Use Smoking status: Never Smokeless tobacco: Never Substance Use Topics Alcohol use: Not Currently Drug use: Never PHYSICAL EXAM: LMP 08/27/2022 General: Well appearing Psych: Alert to time, place, and person and Pleasant DISCUSSION/RECOMMENDATIONS: Problem List Items Addressed This Visit OB Dionne Esquivel Gestational diabetes mellitus (GDM) in third trimester - Primary CONSIDERATIONS: Reviewed etiology and risks associated with gestational diabetes mellitus (GDM), including risks topregnancy, fetus, and maternal progression to Type 2 [...] Recommend nutrition consult with RDN (Registered Dietitian Environmental Services Associate). Lifestyle changes are also indicated including optimizing gestational weight gain and physical activity of 30 minutes per day, if not otherwise contraindicated in . Insulin is preferred if medications are indicated to optimize euglycemia. Metformin (preferred overglyburide) may also be used in some circumstances. [...] with 75-gram glucose load 6-8 weeks . History of delivery, currently CONSIDERATIONS: Patient is at high risk to [...] patients who previously received 17P. Patient's primary PLASTICS NURSE can coordinate therapy if desired. For patients with a history of delivery/prolonged PROM between or after 34 weeks, we do notrecommend cervical length monitoring. Follow up with Maternal Medicine as needed for maternal or indications. Follow up for glucose management in 1 week via [facility]. Total time spent face to face in this visit was 30 minutes of which more than 50% was spent discussing and counseling the patient/caregiver(s) regarding gestational diabetes, diet and exercise. Totaltime spent on this date of service including non face to face was 40 minutes in preparation, delivery, and documentation of care provided to Nikita Dang, excluding time spent in performance of separately billable services. Details outlined above in impression and plan. ZENAIDA Love 04/01/2023 3:58 PM documented in this encounter Miscellaneous Notes * Pt Handout (on AVS) - Tequila Valencia CRNP - 04/01/2023 4:01 PM EST Images from the original note were not included. Managing Gestational Diabetes - Video Being diagnosed with gestational diabetes can be stressful. But with proper care and management, you can stay healthy and deliver a healthy baby. In many cases, gestational diabetes goes away on its own after the mother gives . To view the video go to this web address: [email or web address] Or, scan this QR code with your smart phone 2019 [employer]FFIQ. * Pt Handout (on AVS) - Tequila Valencia CRNP - 04/01/2023 4:01 PM EST Images from the original note were not included. [id number] Understanding Carbohydrates A car needs the right type of fuel to run. And you need the right kind of food to function. To keepyour energy level up, your body needs food that has carbohydrates (carbs). But carbs raise blood sugar levels higher and faster than other kinds of food. Your dietitian will work with you to figure out the amount of carbs you need. Carbs come in 3 types: starches, sugars, and fiber. Starches Starches are found in grains, some vegetables, and beans. Grain products include bread, pasta, cereal, and tortillas. Starchy vegetables include potatoes, peas, corn, coreas beans, yams, and squash. Kidney beans, roman beans, black beans, garbanzo beans, and lentils also have starches. Sugars Sugars are found naturally in many foods. Or they can be added. Foods that contain natural sugar include fruits and fruit juices, dairy products, honey, and molasses. Added sugars are found in most desserts, processed foods, candy, regular soda, and fruit drinks. These are very helpful to treat lowblood sugar (hypoglycemia). They give you sugar quickly. Try to keep at least 15 to 20 grams of these simple sugars with you at all times. Eat or drink these if you start to have symptoms of low blood sugar. Fiber Fiber comes from plant foods. Your body can't digest most fiber. Instead of raising blood sugar levels like other carbs, fiber stops blood sugar from rising too fast. Fiber is found in fruits, vegetables, whole grains, beans, peas, and many nuts. Carb counting Keep track of the amount of carbs you eat. This can help you keep the right balance of carbs, physical activity, and medicine. The amount of carbs you need will be different from what other people need. How much you need depends on many things. These include your health, the medicines you take, andhow active you are. Your healthcare team will help you figure out the right amount of carbs for you. You may start with 45 to 60 grams of carbs per meal, depending on your case. Carb counting is a system that helps you keep track of the carbohydrates you eat at each meal. Carbs come from many foods. These include grains, starchy vegetables, fruit, milk, beans, and snackfoods. You can either count carbohydrate grams or carbohydrate servings. When you count carbohydrate servings, 1 carbohydrate serving = 15 grams of carbohydrates. Here are some examples of foods that have about 15 grams of carbs (1 serving of carbohydrates): 1/2 cup of canned or frozen fruit A small piece of fresh fruit (4 ounces) 1 slice of bread 1/2 cup of oatmeal 1/3 cup of rice 4 to 6 crackers 1/2 Tamazight muffin 1/2 cup of black beans 1/4 of a large baked potato (3 ounces) 2/3 cup of plain fat-free yogurt 1 cup of soup 1/2 cup of casserole 6 chicken nuggets 9-ecqi-krzphf brownie or cake without frosting 2 small cookies 1/2 cup of ice cream or sherbet Carb counting is easier when food labels are available. Look at the label to see how many grams of total carbs per serving the food contains. Then you can figure out how much you should eat. If your food doesn't have a nutrition label, you should be able to get an idea how many carbs there are per serving by using a book or website. Two very important lines to look at on the label are the serving size and the total carbohydrate amount per serving. Here are some tips for using food labels to count your carbs: Check the serving size. The information on the label is based on that serving size. If you eat more than the listed serving size, you may have to double or triple the other information on the label. Check the total grams of carbs. Total carbohydrate from the label includes sugar, starch, and fiber. Be sure to use the total carbohydrate number (minus the fiber) and not sugar alone. Know how many grams of carbs you can have. Be familiar with the matching portion sizes. Compare labels. Compare the labels of different products. Look at serving sizes and total carbs to find the products that work best for you. Don't forget protein and fat. With the focus on carb counting, it might be easy to forget protein and fat in your meals. Don't forget to include sources of protein and healthy fat to balance your meals. Also watch how much salt (sodium) you eat. This is especially true if you have high blood pressure. If you have diabetes, limit the amount of sodium to less than 2,300 mg a day. It?s also important to be consistent with the amount of carbs and time you eat when taking a fixed dose of diabetes medicine. Work with your healthcare provider or dietitian if you need more help. They can help you keep track of your carbs. They can also help you figure out how many grams of carbs you should have. Last Reviewed Date: 02/19/202119990872-4781 [employer]. All rights reserved. This information is not intended as a substitute for professional medical care. Always follow your healthcare professional's instructions. * Pt Handout (on AVS) - Tequila Valencia CRNP - 04/01/2023 4:01 PM EST Images from the original note were not included. Nidp-is-Lcdf: Checking Your Blood Sugar - Video This video shows the steps to check your blood sugar. To view the video go to this web address: https://bit.ly/[email or web address] Or, scan this QR code with your smart phone Last Reviewed Date: 09/19/202019995508-3423 [employer]. All rights reserved. This information is not intended as a substitute for professional medical care. Always follow your healthcare professional's instructions. * Pt Handout (on AVS) - Tequila Valencia CRNP - 04/01/2023 4:00 PM EST Images from the original note were not included. Dhfz-jc-Uvje: Checking Your Blood Sugar - Video This video shows the steps to check your blood sugar. To view the video go to this web address: [email or web address] Or, scan this QR code with your smart phone Last Reviewed Date: 2020 [employer]. All rights reserved. This information is not intended as a substitute for professional medical care. Always follow your healthcare professional's instructions. * Pt Handout (on AVS) - Tequila Valencia CRNP - 04/01/2023 4:00 PM EST Images from the original note were not included. [id number] Understanding Carbohydrates A car needs the right type of fuel to run. And you need the right kind of food to function. To keepyour energy level up, your body needs food that has carbohydrates (carbs). But carbs raise blood sugar levels higher and faster than other kinds of food. Your dietitian will work with you to figure out the amount of carbs you need. Carbs come in 3 types: starches, sugars, and fiber. Starches Starches are found in grains, some vegetables, and beans. Grain products include bread, pasta, cereal, and tortillas. Starchy vegetables include potatoes, peas, corn, coreas beans, yams, and squash. Kidney beans, roman beans, black beans, garbanzo beans, and lentils also have starches. Sugars Sugars are found naturally in many foods. Or they can be added. Foods that contain natural sugar include fruits and fruit juices, dairy products, honey, and molasses. Added sugars are found in most desserts, processed foods, candy, regular soda, and fruit drinks. These are very helpful to treat lowblood sugar (hypoglycemia). They give you sugar quickly. Try to keep at least 15 to 20 grams of these simple sugars with you at all times. Eat or drink these if you start to have symptoms of low blood sugar. Fiber Fiber comes from plant foods. Your body can't digest most fiber. Instead of raising blood sugar levels like other carbs, fiber stops blood sugar from rising too fast. Fiber is found in fruits, vegetables, whole grains, beans, peas, and many nuts. Carb counting Keep track of the amount of carbs you eat. This can help you keep the right balance of carbs, physical activity, and medicine. The amount of carbs you need will be different from what other people need. How much you need depends on many things. These include your health, the medicines you take, andhow active you are. Your healthcare team will help you figure out the right amount of carbs for you. You may start with 45 to 60 grams of carbs per meal, depending on your case. Carb counting is a system that helps you keep track of the carbohydrates you eat at each meal. Carbs come from many foods. These include grains, starchy vegetables, fruit, milk, beans, and snackfoods. You can either count carbohydrate grams or carbohydrate servings. When you count carbohydrate servings, 1 carbohydrate serving = 15 grams of carbohydrates. Here are some examples of foods that have about 15 grams of carbs (1 serving of carbohydrates): 1/2 cup of canned or frozen fruit A small piece of fresh fruit (4 ounces) 1 slice of bread 1/2 cup of oatmeal 1/3 cup of rice 4 to 6 crackers 1/2 Tamazight muffin 1/2 cup of black beans 1/4 of a large baked potato (3 ounces) 2/3 cup of plain fat-free yogurt 1 cup of soup 1/2 cup of casserole 6 chicken nuggets 3-nrgh-jvoepk brownie or cake without frosting 2 small cookies 1/2 cup of ice cream or sherbet Carb counting is easier when food labels are available. Look at the label to see how many grams of total carbs per serving the food contains. Then you can figure out how much you should eat. If your food doesn't have a nutrition label, you should be able to get an idea how many carbs there are per serving by using a book or website. Two very important lines to look at on the label are the serving size and the total carbohydrate amount per serving. Here are some tips for using food labels to count your carbs: Check the serving size. The information on the label is based on that serving size. If you eat more than the listed serving size, you may have to double or triple the other information on the label. Check the total grams of carbs. Total carbohydrate from the label includes sugar, starch, and fiber. Be sure to use the total carbohydrate number (minus the fiber) and not sugar alone. Know how many grams of carbs you can have. Be familiar with the matching portion sizes. Compare labels. Compare the labels of different products. Look at serving sizes and total carbs to find the products that work best for you. Don't forget protein and fat. With the focus on carb counting, it might be easy to forget protein and fat in your meals. Don't forget to include sources of protein and healthy fat to balance your meals. Also watch how much salt (sodium) you eat. This is especially true if you have high blood pressure. If you have diabetes, limit the amount of sodium to less than 2,300 mg a day. It?s also important to be consistent with the amount of carbs and time you eat when taking a fixed dose of diabetes medicine. Work with your healthcare provider or dietitian if you need more help. They can help you keep track of your carbs. They can also help you figure out how many grams of carbs you should have. Last Reviewed Date: 02/19/202119999232-4952 [employer]. All rights reserved. This information is not intended as a substitute for professional medical care. Always follow your healthcare professional's instructions. * Pt Handout (on AVS) - Tequila Valencia CRNP - 04/01/2023 4:00 PM EST Images from the original note were not included. Diabetes (Gestational) - Video This form of diabetes develops during . With it, the hormone insulin has problems helping the body turn blood glucose (commonly called blood sugar) into energy. In most cases, gestational diabetes can be controlled with no complications. It often goes away after . To view the video go to this web address: [email or web address] Or, scan this QR code with your smart phone [employer]. * Pt Handout (on AVS) - Tequila Valencia CRNP - 04/01/2023 4:00 PM EST Images from the original note were not included. Managing Gestational Diabetes - Video Being diagnosed with gestational diabetes can be stressful. But with proper care and management, you can stay healthy and deliver a healthy baby. In many cases, gestational diabetes goes away on its own after the mother gives . To view the video go to this web address: https://bit.[email or web address] Or, scan this QR code with your smart phone [employer]. * Pt Handout (on AVS) - Tequila Valencia CRNP - 04/01/2023 4:00 PM EST Images from the original note were not included. Managing Gestational Diabetes - Video Being diagnosed with gestational diabetes can be stressful. But with proper care and management, you can stay healthy and deliver a healthy baby. In many cases, gestational diabetes goes away on its own after the mother gives . To view the video go to this web address: https://bit.ly/[email or web address] Or, scan this QR code with your [employer] phone [address] [employer] [address]. * Pt Handout (on AVS) - Tequila Valencia CRNP - 04/01/2023 4:00 PM EST Images from the original note were not included. Xwci-yc-Rvbp: Checking Your Blood Sugar - Video This video shows the steps to check your blood sugar. To view the video go to this web address: https://bit.ly/[email or web address] Or, scan this QR code with your smart phone Last Reviewed Date: 09/19/202019998965-3210 [employer]. All rights reserved. This information is not intended as a substitute for professional medical care. Always follow your healthcare professional's instructions. * Pt Handout (on AVS) - Tequila Valencia CRNP - 04/01/2023 4:00 PM EST Images from the original note were not included. [id number] Understanding Carbohydrates A car needs the right type of fuel to run. And you need the right kind of food to function. To keepyour energy level up, your body needs food that has carbohydrates (carbs). But carbs raise blood sugar levels higher and faster than other kinds of food. Your dietitian will work with you to figure out the amount of carbs you need. Carbs come in 3 types: starches, sugars, and fiber. Starches Starches are found in grains, some vegetables, and beans. Grain products include bread, pasta, cereal, and tortillas. Starchy vegetables include potatoes, peas, corn, coreas beans, yams, and squash. Kidney beans, roman beans, black beans, garbanzo beans, and lentils also have starches. Sugars Sugars are found naturally in many foods. Or they can be added. Foods that contain natural sugar include fruits and fruit juices, dairy products, honey, and molasses. Added sugars are found in most desserts, processed foods, candy, regular soda, and fruit drinks. These are very helpful to treat lowblood sugar (hypoglycemia). They give you sugar quickly. Try to keep at least 15 to 20 grams of these simple sugars with you at all times. Eat or drink these if you start to have symptoms of low blood sugar. Fiber Fiber comes from plant foods. Your body can't digest most fiber. Instead of raising blood sugar levels like other carbs, fiber stops blood sugar from rising too fast. Fiber is found in fruits, vegetables, whole grains, beans, peas, and many nuts. Carb counting Keep track of the amount of carbs you eat. This can help you keep the right balance of carbs, physical activity, and medicine. The amount of carbs you need will be different from what other people need. How much you need depends on many things. These include your health, the medicines you take, andhow active you are. Your healthcare team will help you figure out the right amount of carbs for you. You may start with 45 to 60 grams of carbs per meal, depending on your case. Carb counting is a system that helps you keep track of the carbohydrates you eat at each meal. Carbs come from many foods. These include grains, starchy vegetables, fruit, milk, beans, and snackfoods. You can either count carbohydrate grams or carbohydrate servings. When you count carbohydrate servings, 1 carbohydrate serving = 15 grams of carbohydrates. Here are some examples of foods that have about 15 grams of carbs (1 serving of carbohydrates): 1/2 cup of canned or frozen fruit A small piece of fresh fruit (4 ounces) 1 slice of bread 1/2 cup of oatmeal 1/3 cup of rice 4 to 6 crackers 1/2 Tamazight muffin 1/2 cup of black beans 1/4 of a large baked potato (3 ounces) 2/3 cup of plain fat-free yogurt 1 cup of soup 1/2 cup of casserole 6 chicken nuggets 9-[id number]-[id number] brownie or cake without frosting 2 small cookies 1/2 cup of ice cream or sherbet Carb counting is easier when food labels are available. Look at the label to see how many grams of total carbs per serving the food contains. Then you can figure out how much you should eat. If your food doesn't have a nutrition label, you should be able to get an idea how many carbs there are per serving by using a book or website. Two very important lines to look at on the label are the serving size and the total carbohydrate amount per serving. Here are some tips for using food labels to count your carbs: Check the serving size. The information on the label is based on that serving size. If you eat more than the listed serving size, you may have to double or triple the other information on the label. Check the total grams of carbs. Total carbohydrate from the label includes sugar, starch, and fiber. Be sure to use the total carbohydrate number (minus the fiber) and not sugar alone. Know how many grams of carbs you can have. Be familiar with the matching portion sizes. Compare labels. Compare the labels of different products. Look at serving sizes and total carbs to find the products that work best for you. Don't forget protein and fat. With the focus on carb counting, it might be easy to forget protein and fat in your meals. Don't forget to include sources of protein and healthy fat to balance your meals. Also watch how much salt (sodium) you eat. This is especially true if you have high blood pressure. If you have diabetes, limit the amount of sodium to less than 2,300 mg a day. It?s also important to be consistent with the amount of carbs and time you eat when taking a fixed dose of diabetes medicine. Work with your healthcare provider or dietitian if you need more help. They can help you keep track of your carbs. They can also help you figure out how many grams of carbs you should have. Last Reviewed Date: 02/19/202119998382-0115 [employer]. All rights reserved. This information is not intended as a substitute for professional medical care. Always follow your healthcare professional's instructions. * Pt Handout (on AVS) - Tequila Valencia CRNP - 04/01/2023 4:00 PM EST Images from the original note were not included. Diabetes (Gestational) - Video This form of diabetes develops during . With it, the hormone insulin has problems helping the body turn blood glucose (commonly called blood sugar) into energy. In most cases, gestational diabetes can be controlled with no complications. It often goes away after . To view the video go to this web address: [email or web address] Or, scan this QR code with your smart phone Vacation Your Way. * Assessment & Plan Note - Tequila Valencia CRNP - 04/01/2023 3:55 PM EST Associated Problem(s): History of delivery, currently CONSIDERATIONS: Patient is at high risk to have a recurrent delivery (PTD): 3.6-fold higher with one priorPTD and the risk increases with the number [...] patients who previously received 17P. Patient's primary PLASTICS NURSE can coordinate therapy if desired. For patients with a history of delivery/prolonged PROM between or after 34 weeks, we do notrecommend cervical length monitoring. * Assessment & Plan Note - Tequila Valencia CRNP - 04/01/2023 3:50 PM EST Associated Problem(s): Gestational diabetes mellitus (GDM) in third trimester CONSIDERATIONS: Reviewed etiology and risks associated with gestational diabetes mellitus (GDM), including risks topregnancy, fetus, and maternal progression to Type 2 [...] Recommend nutrition consult with RDN (Registered Dietitian Environmental Services Associate). Lifestyle changes are also indicated including optimizing gestational weight gain and physical activity of 30 minutes per day, if not otherwise contraindicated in . Insulin is preferred if medications are indicated to optimize euglycemia. Metformin (preferred overglyburide) may also be used in some circumstances. [...] with 75-gram glucose load 6-8 weeks . documented in this encounter Plan of Treatment Upcoming Encounters Date Type Department Care Team (Late st Contact Info) Description 04/12/2023 2:15 PM EST Office Visit Gynecology/Obstetrics [facility] [address] [place] [address] Oriana Watt CRNP [address] [place] [address] 04/26/2023 3:00 PM EST Office Visit Gynecology/Obstetrics [facility] [address] [place] [address] Chente Garcia MD [address] [place] [address] 05/10/2023 3:00 PM EST Office Visit Gynecology/Obstetrics [facility] [address] [place] [address] Chente Garcia MD [address] [place] [address] 05/19/2023 3:15 PM EST Office Visit Gynecology/Obstetrics [facility] [address] [place] [address] Oriana Watt CRNP [address] [place] [address] 05/24/2023 4:30 PM EST Office Visit Gynecology/Obstetrics [facility] [address] [place] [address] Kay Mills PA-C [address] [place] [address] Scheduled Referrals Name Type Priority Associated Diagnoses Orde r Schedule REMOTE PATIENT MONITORING REFERRAL Referral Within 3 days (urgent) Diet controlled gestational diabetes mellitus (GDM) in third trimester Ordered: 04/01/2023 Health Maintenance Due Date Last Done Comments [...] as of this encounter Visit Diagnoses Diagnosis Diet controlled gestational diabetes mellitus (GDM) in third trimester- Primary History of delivery, currently with history of pre-term labor Supervision of high risk in third trimester Unspecified high-risk with 30 completed weeks gestation documented in this encounter Care Teams Fashion Merchandiser Relationship Specialty Start Date End Date Sortor Catalina Gaspar MD [address] [facility] [address] [place] [address] PCP - General 12/08/02 documented as of this encounter
--- OUTSIDE RECORDS SUMMARY | 2023-05-28 14:51 | External Medical Summary ---
Author Name Unknown Address Unknown Organization [id number]:[facility] [address] [place] [address] Laboratory Report Ordering Provider Test Date Status ELEUTERIO BARNES 03/26/2023 11:05:23 Final Observation Date Value Abnormality Reference (Units ) Status Glucose [Mass/volume] in Serum or Plasma --3 hours post dose glucose 03/26/2023 11:05:23 117 70-139 (mg/dL) Final Performing Location [facility] [address] [place] [address]
--- OUTSIDE RECORDS SUMMARY | 2023-05-28 14:51 | External Medical Summary ---
Author Name Unknown Address Unknown Organization [id number][facility] [facility] [address] [place] [id number] Laboratory Report Ordering Provider Test Date Status ELEUTERIO BARNES 03/26/2023 10:07:06 Final Observation Date Value Abnormality Reference (Units ) Status Glucose, 2-hr post glucose challenge 03/26/2023 10:07:06 167 Above high normal 70-154 (mg/dL) Final Performing Location [facility] [place] [address]
--- OUTSIDE RECORDS SUMMARY | 2023-05-28 14:51 | External Medical Summary | Summary of Care ---
Author Name Unknown Organization [facility] Address [address] [place] [address] Phone [phone] Care Team Providers Care Yard Switch Operator Name Role Phone Sortor Catalina Gaspar MD Primary Care Pro vider Reason for Visit * Reason Comments Outpatient Testing Encounter Details Date Type Department Care Team (Late st Contact Info) Description 03/26/2023 8:00 AM EST Laboratory Laboratory, [facility] [address] [place] [id number] [facility] [address] [place] [address] Elevated glucose tolerance test Allergies No known active allergiesdocumented as of [...] Date Gestational diabetes [facility]) [facility]/26[facility]23 Supervision of other normal , antepartu [...] in care everwhere: A+ ABS neg H/H .5 Rubella non-immune RPR neg Hep B neg [...] money to get more. Never true 01/27/2023 [place] Depression Scale Answer Date Recorded [place] Depression Scale Total 4 03/16/2023 The thought [...] on file documented as of this encounter Plan of Treatment Upcoming Encounters Date Type Department Care Team (Late st Contact Info) Description 03/29/2023 4:30 PM EST Office Visit Gynecology/Obstetrics [facility] [address] [place] [address] Kay Mills PA-C [address] [place] [address] 04/12/2023 2:15 PM EST Office Visit Gynecology/Obstetrics [facility] [address] [place] [address] Oriana Watt CRNP [address] [place] [address] 04/26/2023 3:00 PM EST Office Visit Gynecology/Obstetrics [facility] [address] [place] [address] Chente Garcia MD [address] [place] [address] 05/10/2023 3:00 PM EST Office Visit Gynecology/Obstetrics [facility] [address] [place] [address] Chente Garcia MD [address] [place] [address] 05/19/2023 3:15 PM EST Office Visit Gynecology/Obstetrics [facility] [address] [place] [address] Oriana Watt CRNP [address] [place] [address] 05/24/2023 4:30 PM EST Office Visit Gynecology/Obstetrics [facility] [address] [place] [address] Kay Mills PA-C [address] [place] [address] Pending Results Name Type Priority Associated Diagnoses Date /Time GESTATIONAL GLUCOSE TOLERANCE, 3 HOUR Lab Routine Elevated glucose tolerance test 03/26/2023 8:03 AM EST 100-G GESTATIONAL GLUCOSE, 3 HOUR Lab Routine Elevated glucose tolerance test 03/26/2023 11:05 AM EST Health Maintenance Due Date Last Done Comments [...] Not on filedocumented as of this encounter Procedures Procedure Name Priority Date/Time Associated Diagnosis Comments 100-G GESTATIONAL GLUCOSE, 2 HOUR Routine 03/26/2023 10:07 AM EST Elevated glucose tolerance test 100-G GESTATIONAL GLUCOSE, 1 HOUR Routine 03/26/2023 9:01 AM EST Elevated glucose tolerance test 100-G GESTATIONAL GLUCOSE, FASTING Routine 03/26/2023 8:03 AM EST Elevated glucose tolerance test documented in this encounter Results * (ABNORMAL) 100-G GESTATIONAL GLUCOSE, 2 HOUR (03/26/2023 10:07 AM EST) 100-g Gestational Glucose, 2 Hour 167(H) 70 - 154 mg/dL 03/26/2023 11:02 AM EST [facility] [place] [facility] Blood Venous blood specimen / Unknown Venipuncture / Unknown 03/26/2023 10:07 AM EST 03/26/2023 10:07 AM EST Yashira Killianladi [facility] [place] [address] [place] [address] * (ABNORMAL) 100-G GESTATIONAL GLUCOSE, 1 HOUR (03/26/2023 9:01 AM EST) 100-g Gestational Glucose, 1 Hour 194(H) 70 - 179 mg/dL 03/26/2023 10:18 AM EST [facility] [place] [address] Blood Venous blood specimen / Unknown Venipuncture / Unknown 03/26/2023 9:01 AM EST 03/26/2023 9:01 AM EST Yashira Mian [facility] [place] [address] [place] [address] * 100-G GESTATIONAL GLUCOSE, FASTING (03/26/2023 8:03 AM EST) 100-g Gestational Glucose, Fasting 85 70 - 94 mg/dL 03/26/2023 9:46 AM EST [facility] [place] [facility] Blood Venous blood specimen / Unknown Venipuncture / Unknown 03/26/2023 8:03 AM EST 03/26/2023 8:03 AM EST Narrative [facility] [place] [facility] - 03/26/2023 9:46 AM EST Based on ACOG guideline, gestational diabetes mellitus is diagnosed when any of the following is met: Fasting is greater than or equal to 95 mg/dL 1 hour is greater than or equal to 180 mg/dL 2 hour is greater than or equal to 155 mg/dL 3 hour is greater than or equal to 140 mg/dL Yashira Pappas Negar [facility] [place] [address] [facility] [facility] [place] [address] documented in this encounter Visit Diagnoses Diagnosis Elevated glucose tolerance test Impaired glucose tolerance test documented in this encounter Care Teams Yard Switch Operator Relationship Specialty Start Date End Date Sortor Catalina Gaspar MD [address] [facility] [place] [address] [place], [place] [phone] PCP - General 12/08/02 documented as of this encounter
--- OUTSIDE RECORDS SUMMARY | 2023-05-28 14:51 | External Medical Summary | Summary of Care ---
Author Name Unknown Organization [facility] Address [address] [place] [address] Phone [phone] Care Team Providers Care Truck Assembler Name Role Phone Sortor Catalina Gaspar MD Primary Care Pro vider Reason for Visit * Reason Onset Date Comments Referral 03/26/2023 Encounter Details Date Type Department Care Team (Late st Contact Info) Description 03/26/2023 Telephone Lead Former Obstetrics [facility] [address] [place], [place] [phone] [place], Nurse Lead Former [facility] [address] [place], [place] [phone] Referral Allergies No known active allergiesdocumented as [...] money to get more. Never true 01/27/2023 [place] Depression Scale Answer Date Recorded [place] Depression Scale Total 4 03/16/2023 The thought [...] Telephone Encounter - Reyna Mcnair OSA - 03/30/2023 10:21 AM EST Pt is speaking to ob about seeing regular ultrasound, does not want to travel to [place] * Telephone Encounter - Alexa Hastings MED ASSIST - 03/30/2023 9:51 AM EST Patient currently scheduled for BUSINESS AREA DIRECTOR consult 04/01/23 but will need ultrasound scheduled within 2-3 weeks as well. * Telephone Encounter - Reyna Mcnair OSA - 03/26/2023 2:33 PM EST Talking to OB about getting seen in [facility] possibly * Telephone Encounter - Alexa Hastings MED ASSIST - 03/26/2023 2:20 PM EST Estimated Date of Delivery: 06/03/23 Please schedule for 45 MINUTE ADAPT WITH BUSINESS AREA DIRECTOR, in time frame of within 1 week at location [facility] with the indication of GDM. Please schedule anatomy within 2-3 weeks. Referring Provider: Yashira Bills CRNP documented in this encounter Plan of Treatment Upcoming Encounters Date Type Department Care Team (Late st Contact Info) Description 04/01/2023 3:30 PM EST Telemedicine Lead Former [facility], [facility] [address] [place] [address] Tequila Valencia CRNP [address] [place] [address] 04/12/2023 2:15 PM EST Office Visit Gynecology/Obstetrics [facility] [address] [place] [address] Oriana Watt CRNP [address] [place] [address] 04/26/2023 3:00 PM EST Office Visit Gynecology/Obstetrics [facility] [address] [place] [address] Chente Garcia MD [address] [place] [address] 05/10/2023 3:00 PM EST Office Visit Gynecology/Obstetrics [facility] [address] [place] [address] Chente Garcia MD [address] [place] [address] 05/19/2023 3:15 PM EST Office Visit Gynecology/Obstetrics [facility] [address] [place] [address] Oriana Watt CRNP [address] [place] [address] 05/24/2023 4:30 PM EST Office Visit Gynecology/Obstetrics [facility] [address] [place] [address] Kay Mills PA-C [address] [place] [address] Health Maintenance Due Date Last Done Comments [...] filedocumented as of this encounter Care Teams Truck Assembler Relationship Specialty Start Date End Date Carolor Catalina Gaspar MD [address] [facility] [address] [place] [address] PCP - General 12/08/02 documented as of this encounter
--- OUTSIDE RECORDS SUMMARY | 2023-05-28 14:51 | External Medical Summary | Summary of Care ---
Author Name Unknown Organization [facility] Address [address] [place] [address] Phone [phone] Care Team Providers Care R D Intern Name Role Phone Sortor Catalina Gaspar MD Primary Care Pro vider Encounter Details Date Type Department Care Team (Late st Contact Info) Description 04/01/2023 Telephone Gynecology/Obstetrics [facility] [address] [place] [address] Kay Mills PA-C [address] [place] [place] [address] Allergies No known active allergiesdocumented as of [...] patients who previously received 17P. Patient's primary PROVISIONING ANALYST can coordinate therapy if desired. For patients [...] Recommend nutrition consult with RDN (Registered Dietitian Alumni Coordinator). Lifestyle changes are also indicated including optimizing [...] money to get more. Never true 01/27/2023 [place] Depression Scale Answer Date Recorded [place] Depression Scale Total 4 03/16/2023 The thought [...] Telephone Encounter - Shanell Rueda RN - 04/01/2023 5:01 PM EST Patient requesting breast pump order to be sent to [facility]. Sent. documented in this encounter Plan of Treatment Upcoming Encounters Date Type Department Care Team (Late st Contact Info) Description 04/12/2023 2:15 PM EST [facility] [address] [place] [address] Oriana Watt CRNP [address] [place] [address] 04/26/2023 3:00 PM EST [facility] [address] [place] [address] Chente Garcia MD [address] [place] [address] 05/10/2023 3:00 PM EST Office Visit Gynecology/Obstetrics [facility] [address] [place] [address] Chente Garcia MD [address] [place] [address] 05/19/2023 3:15 PM EST Office Visit Gynecology/Obstetrics [facility] [address] [place], [place] [address] Oriana Watt CRNP [address] [place] [address] 05/24/2023 4:30 PM EST Office Visit Gynecology/Obstetrics [facility] [address] [facility] [place] [address] Kay Mills PA-C [address] [place] [address] Health Maintenance Due Date Last Done Comments [...] filedocumented as of this encounter Care Teams R D Intern Relationship Specialty Start Date End Date Carolor Catalina Gaspar MD [address] [facility] [place] [place] [address] PCP - General 12/08/02 documented as of this encounter
--- OUTSIDE RECORDS SUMMARY | 2023-05-28 14:52 | External Medical Summary ---
Author Name Unknown Address Unknown Organization [id number]:LABORATORY [facility] - [address] [place] [address] Laboratory Report Ordering Provider Test Date Status ELEUTERIO BARNES 03/16/2023 08:47:33 Final Observation Date Value Abnormality Reference (Units ) Status Treponema pallidum Ab [Presence] in Serum by Immunoassay 03/16/2023 08:47:33 Nonreactive Nonreactive Final No serologic evidence of syp hilis. No additional testing clinicially indicated at this time. Consider repeat testing in 2-4 weeks if acute or primary syphilis is suspected. Performing Location [facility] - [address] [place] [address]
--- OUTSIDE RECORDS SUMMARY | 2023-05-28 14:52 | External Medical Summary | Summary of Care ---
Author Name Unknown Organization [facility] Address [address] [place] [address] Phone [phone] Care Team Providers Care Trailer Rental Clerk Name Role Phone Sortor Catalina Gaspar MD Primary Care Pro vider Reason for Visit * Reason Comments Return Visit Encounter Details Date Type Department Care Team (Late st Contact Info) Description 03/16/2023 8:00 AM EST Office Visit Gynecology/Obstetric s [facility] [address] [place] [address] Oriana Watt CRNP [address] [place] [address] Supervision of other normal , antepartum*; H/O section; History of premature rupture of membranes (PPROM); Need for prophylactic vaccination with combined dhnzoupyig-xzrhrok-eo rtussis (DTP) vaccine Allergies No known active allergiesdocumented as of [...] money to get more. Never true 01/27/2023 [place] Depression Scale Answer Date Recorded [place] Depression Scale Total 4 03/16/2023 The thought [...] Sign Reading Time Taken Comments Blood Pressure 98/68 03/16/2023 7:54 AM EST Pulse - - Temperature - - Respiratory Rate - - Oxygen Saturation - - Inhaled Oxygen Concentration - - Weight 98.4 kg (217 lb) 03/16/2023 7:54 AM EST Height 167.6 cm (5' 6") 03/16/2023 7:54 AM EST Body Mass Index 35.02 03/16/2023 7:54 AM EST documented in this encounter Progress Notes * Oriana Watt CRNP - 03/16/2023 8:26 AM EST 28w5d Not sleeping well, struggling to stay asleep. Desires repeat c/s, message to Ashley to schedule. Discussed dilated renal pelvis, will need f/u ultrasound in a few weeks. No contractions or bleeding, baby is active. Glucola, TDAP today. ZENAIDA Hay * Dot Jay LPN - 03/16/2023 8:00 AM EST 28w5d Completing labs today, would like tdap. Denies concerns. documented in this encounter Nursing Notes * Dot Jay LPN - 03/16/2023 8:08 AM EST Patient here for tdap injection. Patient doing well no complaints. Injection given IM as ordered. Patient tolerated well. Patient to follow up as directed. Patient instructed to call if any complications. Patient verbalized understanding of instructions given and her follow up appt for OBEY. Injection site: Left Deltoid Medication Source: Dispensed stock medication documented in this encounter Plan of Treatment Upcoming Encounters Date Type Department Care Team (Late st Contact Info) Description 03/29/2023 4:30 PM EST Office Visit Gynecology/Obstetrics [facility] [address] [place] [address] Kay Mills PA-C [address] [place] [address] 04/12/2023 2:15 PM EST Office Visit Gynecology/Obstetrics [facility] [address] [place] [address] Oriana Watt CRNP [address] [place] [address] Health Maintenance Due Date Last Done Comments [...] History of premature rupture of membranes (PPROM) Need for prophylactic vaccination with combined zquumxawgn-ymvskqf-rqlrifpzl (DTP) vaccine documented in this encounter Care Teams Trailer Rental Clerk Relationship Specialty Start Date End Date Sortor Catalina Gaspar MD [address] [facility] [address] [place] [address] PCP - General 12/08/02 documented as of this encounter
--- OUTSIDE RECORDS SUMMARY | 2023-05-28 14:52 | External Medical Summary | Summary of Care ---
Author Name Unknown Organization [facility] Address [address] [place] [address] Phone [phone] Care Team Providers Care Marine Services Technician Name Role Phone Sortor Catalina Gaspar MD Primary Care Pro vider Reason for Visit * Reason Onset Date Comments Test Results 02/16/2023 Unexpected or In determinate Result Encounter Details Date Type Department Care Team (Late st Contact Info) Description 02/16/2023 Telephone [facility]iology [facility] [address] [place] [address] Oriana Watt CRNP [address] [facility] [place] [address] Test Results (Unexpected or Indeterminate ... Allergies No known active allergiesdocumented as of this encounter (statuses as of 02/16/2023) Medications Medication Sig Dispensed Refills Start Date End Date Status 19 29-1 MG Oral Tablet Take 1 Tablet by mouth in the morning. 0 Active Breast Pump Dispense double electric breast pump. Dx Z39.1 1 Each 0 08/28/2020 Active documented as of this encounter (statuses as of 02/16/2023) Active Problems Problem Noted Date Diagnosed Date Supervision of other normal , antepartu m 10/23/2022 H/O section 10/23/2022 Overview: C/s for breech delivery History of premature rupture of membrane s (PPROM) 10/23/2022 Overview: PPROM at 36w Estimated Date of Delivery Comme nts Yes 06/03/2023 Based on last me nstrual period of 08/27/2022 documented as of this encounter (statuses as of 02/16/2023) Resolved Problems Problem Noted Date Diagnosed Date [...] as of this encounter (statuses as of 02/16/2023) Immunizations Name Administration Dates Next Due TDAP [...] money to get more. Never true 01/27/2023 [place] Depression Scale Answer Date Recorded [place] Depression Scale Total 2 11/20/2020 The thought of harming myself has occurred to me . Never 11/20/2020 Estimated Date of Delivery Comme nts Yes [...] Telephone Encounter - Alexa Palomo RN - 02/16/2023 3:57 PM EST Will have Oriana review. * Telephone Encounter - Alina Rogers OSA - 02/16/2023 3:47 PM EST Hello- The radiologist discovered an unexpected or indeterminate finding on Nikita Dang ([id number]) and asks that you review the following report. Study Type:US PREG LIMITED 1 OR MORE FETUSES Date of Study: 02/16/2023 Please respond to this encounter to acknowledge receipt of this message and take responsibility to ensure this report is reviewed. Thank you, JAYSHREE Villar Client Service Rep Diagnostic Medicine [place] IMPRESSION Generous caliber left renal pelvis up to 4 mm, recommend follow-up in 3rd trimester. Kidneys and spine otherwise unremarkable. documented in this encounter Plan of Treatment Upcoming Encounters Date Type Department Care Team (Late st Contact Info) Description 03/16/2023 7:20 AM EST [facility] [address] [facility] [place] [address] EsquivelRoscoe almendarez [facility] 132 [facility] [place] [address] 03/16/2023 8:00 AM EST Office Visit Gynecology/Obstetrics Greg [facility] [place] [address] Oriana Watt CRNP [address] [place] [address] 03/29/2023 4:30 PM EST Office Visit Gynecology/Obstetrics [facility] [address] [place] [address] Kay Mills PA-C [address] [place] [address] 04/12/2023 2:15 PM EST Office Visit Gynecology/Obstetrics [facility] [address] [place] [address] Oriana Watt CRNP [address] [place] [address] Health Maintenance Due Date Last Done Comments COVID-19 Vaccine (#1) 02/20/1994 Depression Screening 2005 02/16/2023 Influenza Vaccine (FLU shot) (#1) 2022 Pap Smear 10/23/2025 10/23/2022 DTaP,Tdap,and Td Vaccines (6 - Td or Tdap) 08/12/2030 08/12/2020, 12/02/1994, 03/04/1994, Additional history exists Hepatitis B Completed 03/04/1994, [...] filedocumented as of this encounter Care Teams Marine Services Technician Relationship Specialty Start Date End Date Sortor Catalina Gaspar MD [address] [facility] [address] [place] [address] PCP - General 12/08/02 documented as of this encounter
--- OUTSIDE RECORDS SUMMARY | 2023-05-28 14:52 | External Medical Summary | Summary of Care ---
Author Name Unknown Organization [facility] Address [address] [place] [address] Phone [phone] Care Team Providers Care Floral Designer Name Role Phone Sortor Catalina Gaspar MD Primary Care Pro vider Reason for Visit * Reason Comments Outpatient Testing Encounter Details Date Type Department Care Team Description 12/22/2022 Laboratory Laboratory, [facility] [address] [place] [phone] [facility] [address] [place] [address] Arrived Allergies No known active allergiesdocumented as of this encounter (statuses as of 12/22/2022) Medications Medication Sig Dispensed Refills Start Date End Date Status 19 29-1 MG Oral Tablet Take 1 Tablet by mouth in the morning. 0 Active Breast Pump Dispense double electric breast pump. Dx Z39.1 1 Each 0 08/28/2020 Active documented as of this encounter (statuses as of 12/22/2022) Active Problems Problem Noted Date Supervision of other normal , a ntepartum 10/23/2022 H/O section 10/23/2022 Overview: C/s for breech delivery History of premature rupture of membranes (PPROM) 10/23/2022 Overview: PPROM at 36w Estimated Date of Delivery Comme nts Yes 06/03/2023 Based on last me nstrual period of 08/27/2022 documented as of this encounter (statuses as of 12/22/2022) Resolved Problems Problem Noted Date Resolved Date Carrier of group B [...] as of this encounter (statuses as of 12/22/2022) Immunizations Name Administration Dates Next Due TDAP (age 10 and older)(Boostrix) 08/12/2020 documented as of this encounter Social History Tobacco Use Types Packs/Day Years Used Date Smoking Tobacco: Never Smokeless Tobacco: Never Alcohol Use Standard Drinks/Week Comments Not Currently 0 (1 standard drink = 0.6 oz pur e alcohol) Food Insecurity Answer Date Recorded Within the past 12 months, y ou worried that your food would run out before you got money to buy more. Never true 10/23/2022 Within the past 12 months, t he food you bought just didn't last and you didn't have money to get more. Never true 10/23/2022 Estimated Date of Delivery Comme nts Yes 06/03/2023 Based on last me nstrual period of 08/27/2022 Sex Assigned at Date Recorded Female 10/23/2022 10:38 AM EDT Job Start Date Occupation Industry Not on file Not on file Not on file documented as of this encounter Plan of Treatment Upcoming Encounters Date Type Specialty Care Team Description 01/28/2023 Imaging Radiology 01/28/2023 Office Visit Gynecology Obstetrics Oriana Watt CRNP [address] [place] [address] Health Maintenance Due Date Last Done Comments Hepatitis B (1 of 3 - 3-dose series) 1993 COVID-19 Vaccine (#1) 02/20/1994 Depression Screening 2005 Influenza Vaccine (FLU shot) (#1) 2022 Pap Smear 10/23/2025 10/23/2022 DTaP,Tdap,and Td Vaccines (6 - Td or Tdap) 08/12/2030 08/12/2020, 12/02/1994, 03/04/1994, Additional history exists GARDASIL-HPV IMMUNIZATION SERIES Aged Out No longer [...] filedocumented as of this encounter Care Teams Floral Designer Relationship Specialty Start Date End Date Sortor Catalina Gaspar MD [address] [address] PCP - General 12/08/02 documented as of this encounter
--- OUTSIDE RECORDS SUMMARY | 2023-05-28 14:52 | External Medical Summary | Summary of Care ---
Author Name Unknown Organization [facility] Address [address] [place] [address] Phone [phone] Care Team Providers Care Composite Technician Name Role Phone Sortor Catalina Gaspar MD Primary Care Pro vider Reason for Visit * Reason Comments Return Visit Encounter Details Date Type Department Care Team (Late st Contact Info) Description 02/16/2023 8:45 AM EST Office Visit Gynecology/Obstetric s [facility] [address] [place] [address] BackYashira shanks CRNP [address] [place] [address] Supervision of other normal , antepartum*; H/O section; History of premature rupture of membranes (PPROM) Allergies No known active allergiesdocumented as of [...] money to get more. Never true 01/27/2023 [place] Depression Scale Answer Date Recorded [place] Depression Scale Total 2 11/20/2020 The thought [...] Reading Time Taken Comments Blood Pressure 100/60 02/16/2023 8:24 AM EST Pulse - - Temperature - - Respiratory Rate - - Oxygen Saturation - - Inhaled Oxygen Concentration - - Weight 96.2 kg (212 lb) 02/16/2023 8:24 AM EST Height - - Body Mass Index 34.22 01/28/2023 10:08 AM EST documented in this encounter Progress Notes * Yashira Bills CRNP - 02/16/2023 8:37 AM EST 24w5d Baby is moving. Some BH ctx, resolve w/rest and hydration. Advised to call if these become more painful or regular. No bleeding. Discussed labs and Tdap for next visit. 4 week return ZENAIDA Becker * Billie Fatima LPN - 02/16/2023 8:26 AM EST 24w5d Denies vaginal bleeding/rom + movement No new concerns documented in this encounter Plan of Treatment Upcoming Encounters Date Type Department Care Team (Late st Contact Info) Description 02/16/2023 9:30 AM EST Imaging Radiology [facility] 132 [facility] [place] [address] Encounter for follow-up ultrasound of anatomy 03/16/2023 7:20 AM EST [facility] 132 [facility] [place] [phone] Roscoe Esquivel [address] [facility] [place] [address] 03/16/2023 8:00 AM EST Office Visit Gynecology/Obstetric tanesha Esquivel [address] [place], [place] [address] Oriana Watt CRNP [address] [place] [address] 03/29/2023 4:30 PM EST Office Visit Gynecology/Obstetric tanesha Esquivel [address] [place], [place] [address] Kay Mills PA-C [address] [place] [address] 04/12/2023 2:15 PM EST Office Visit Gynecology/Obstetric tanesha Esquivel [address] [place], [place] [address] Oriana Watt CRNP [address] [place], [place] [address] Scheduled Orders Name Type Priority Associated Diagnoses Orde r Schedule 50-G GESTATIONAL GLUCOSE, 1 HOUR Lab Routine Supervision of other normal , antepartum Expected: 03/02/2023 (Approximate), Expires: 02/17/2024 CBC WITH WBC DIFFERENTIAL AND ANEMIA REFLEX WORKUP Lab Routine Supervision of other normal , antepartum Expected: 03/02/2023 (Approximate), Expires: 02/17/2024 SYPHILIS ANTIBODY SCREEN WITH REFLEX TO RPR Lab Routine Supervision of other normal , antepartum Expected: 03/02/2023 (Approximate), Expires: 02/17/2024 Health Maintenance Due Date Last Done Comments [...] History of premature rupture of membranes (PPROM) Encounter for follow-up ultrasound of anatomy documented in this encounter Care Teams Composite Technician Relationship Specialty Start Date End Date Sortor Catalina Gaspar MD [address] [address] PCP - General 12/08/02 documented as of this encounter
--- OUTSIDE RECORDS SUMMARY | 2023-05-28 14:52 | External Medical Summary ---
Author Name Unknown Address Unknown Organization K01:LABORATORY [facility] - [address] [place] [address] Laboratory Report Ordering Provider Test Date Status ELEUTERIO BARNES 03/16/2023 08:47:33 Final Observation Date Value Abnormality Reference (Units ) Status TSH 03/16/2023 08:47:33 1.32 0.27-4.20 (uIU/mL) Final Performing Location LABORATORY [facility] - [address] [place] [address]
--- OUTSIDE RECORDS SUMMARY | 2023-05-28 14:52 | External Medical Summary ---
Author Name Unknown Address Unknown Organization K01:LABORATORY [facility] - [address] [place] [address] Laboratory Report Ordering Provider Test Date Status ELEUTERIO BARNES 03/16/2023 08:47:33 Final Observation Date Value Abnormality Reference (Units ) Status Vitamin B12 03/16/2023 08:47:33 298 532-6264 (pg/mL) Final Performing Location LABORATORY [facility] - [address] [place] [address]
--- OUTSIDE RECORDS SUMMARY | 2023-05-28 14:52 | External Medical Summary ---
Author Name Unknown Address Unknown Organization K01:LABORATORY [facility] [place] - [address] [place] [address] Laboratory Report Ordering Provider Test Date Status ELEUTERIO BARNES 03/16/2023 08:47:33 Final Observation Date Value Abnormality Reference (Units ) Status Iron 03/16/2023 08:47:33 82 33-151 (ug/dL) Final Iron-binding capacity 03/16/2023 08:47:33 447 Above high normal 250-425 (ug/dL) Final Transferrin Sat % 03/16/2023 08:47:33 18 15-55 (%) Final Performing Location LABORATORY [facility] [address] [facility] [address]
--- OUTSIDE RECORDS SUMMARY | 2023-05-28 14:52 | External Medical Summary ---
Author Name Unknown Address Unknown Organization : Laboratory Report Ordering Provider Test Date Status EWA CAGE 12/22/2022 08:53:41 Final Observation Date Value Abnormality Reference (Units ) Status INTERPRETATION 12/22/2022 08:53:41 SEE BELOW Final Screen negative for open NTD . RISK FOR ONTD 12/22/2022 08:53:41 <1:5000 Final CALC'D GESTATIONAL AGE 1012/22/2022 08:53:41 16.7 Final AFP, SERUM 12/22/2022 08:53:41 29.0 (ng/mL) Final AFP MOM 12/22/2022 08:53:41 0.95 Final Reference Range:
NTD <2 .50
IDD <1.90
TWINS <4.00
TWINS IDD <3.50
TRIPLETS <4.50
The AFP test result indicates that this patient is
screen negative for open NTD. It should be noted
that normal test results can never guarantee the
of a normal baby and that 2-3% of newborns
have some type of physical or mental defect, many
of which are undetectable through any known
diagnostic technique.
This is a screening test, not a diagnostic test.
This risk assessment report is based in part on
demographic data provided by the ordering
physician. Please notify the laboratory promptly
if any data are incorrect. For assistance with
recalculations, please call your local [facility] laboratory. For assistance with
interpretation of these results, please contact
your Local [facility] genetic counselor or
call [phone] ([phone]).
Interpretive Cutoffs
Screen Positive for Open NTD:
> or = 2.50 adjusted MOM
> or = 1.90 adjusted MOM for insulin- dependent diabetics
> or = 4.00 adjusted MOM for twins
> or = 3.50 adjusted MOM for twins insulin-dependent diabetics
> or = 4.50 adjusted MOM for triplets
For additional information, please refer to
[email or web address]
(This link is being provided for
informational/educational purposes only.) DATE OF 12/22/2022 08:53:41 1995 Final COLLECTION DATE 12/22/2022 08:53:41 12/22/2022 Final MATERNAL WEIGHT 12/22/2022 08:53:41 202 (lbs ) Final EST'D DATE OF DELIVERY 12/22/2022 08:53:41 06/03/2023 Final MARIELOS DETERMINED BY 12/22/2022 08:53:41 LMP Final MOTHER'S ETHNIC ORIGIN 12/22/2022 08:53:41 WHITE Final NUMBER OF FETUSES 12/22/2022 08:53:41 1 Final INSULIN DEPEND DIABETIC 12/22/2022 08:53:41 NO Final REPEAT SPECIMEN 12/22/2022 08:53:41 NO Final HX OF NEURAL TUBE DEFECTS 12/22/2022 08:53:41 NO Final PREV DOWN SYND 12/22/2022 08:53:41 NO Final DONOR EGG 12/22/2022 08:53:41 NO Final DONOR AGE: EGG RETRIEVAL 12/22/2022 08:53:41 NOT GIVEN Final Test performed by [facility]
[address] [facility],
[place] [address]

Mixer Tender: Belinda Mcmillan MD,PHD,NAKUL
Test Reported by Amada Jimenes,
[facility],
[address] [place], [place]
Eris Mills M.D., Ph.D., Director of Laboratories
, [facility] [id number] Performing Location
--- OUTSIDE RECORDS SUMMARY | 2023-05-28 14:52 | External Medical Summary | Summary of Care ---
Author Name Unknown Organization [facility] Address [address] [place] [address] Phone [phone] Care Team Providers Care Cable Operator Name Role Phone Sortor Catalina Gaspar MD Primary Care Pro vider Reason for Visit * Reason Onset Date Comments Test Results 02/16/2023 Unexpected or In determinate Result Encounter Details Date Type Department Care Team (Late st Contact Info) Description 02/16/2023 Telephone Radiology [facility] [address] [place] [address] Oriana Watt CRNP [address] [facility] [place] [address] Test Results (Unexpected or Indeterminate ... Allergies No known active allergiesdocumented as of this encounter (statuses as of 02/17/2023) Medications Medication Sig Dispensed Refills Start Date End Date Status -1 MG Oral Tablet Take 1 Tablet by mouth in the morning. 0 Active Breast Pump Dispense double electric breast pump. Dx Z39.1 1 Each 0 08/28/2020 Active documented as of this encounter (statuses as of 02/17/2023) Active Problems Problem Noted Date Diagnosed Date Supervision of other normal , antepartu m 10/23/2022 H/O section 10/23/2022 Overview: C/s for breech delivery History of premature rupture of membrane s (PPROM) 10/23/2022 Overview: PPROM at 36w Estimated Date of Delivery Comme nts Yes 06/03/2023 Based on last me nstrual period of 08/27/2022 documented as of this encounter (statuses as of 02/17/2023) Resolved Problems Problem Noted Date Diagnosed Date [...] as of this encounter (statuses as of 02/17/2023) Immunizations Name Administration Dates Next Due TDAP [...] money to get more. Never true 01/27/2023 [place] Depression Scale Answer Date Recorded [place] Depression Scale Total 2 11/20/2020 The thought [...] Telephone Encounter - Shanell Rueda RN - 02/17/2023 8:23 AM EST Patient called and made aware. Patient verbalized understanding. * Telephone Encounter - Oriana Watt CRNP - 02/17/2023 8:13 AM EST Please make pt aware that baby's one kidney is slightly larger than expected. This is a VERY commonfinding, and usually resolves on it's own. Recommendation is to recheck in 3rd trimester. * Telephone Encounter - Alexa Palomo RN - 02/16/2023 3:57 PM EST Will have Oriana review. * Telephone Encounter - Alina Rogers OSA - 02/16/2023 3:47 PM EST Hello- The radiologist discovered an unexpected or indeterminate finding on Nikita D [facility] ([id number]) and asks that you review the following report. Study Type:US PREG LIMITED 1 OR MORE FETUSES Date of Study: 02/16/2023 Please respond to this encounter to acknowledge receipt of this message and take responsibility to ensure this report is reviewed. Thank you, JAYSHREE Villar Client Service Rep Diagnostic Medicine [place] IMPRESSION Generous caliber left renal pelvis up to 4 mm, recommend follow-up in 3rd trimester. Kidneys and spine otherwise unremarkable. documented in this encounter Plan of Treatment Upcoming Encounters Date Type Department Care Team (Late st Contact Info) Description 03/16/2023 7:20 AM EST Laboratory Laboratory, Greg [facility] [address] [place], [place] [address] EsquivelRoscoe almendarez [address] [place] [address] 03/16/2023 8:00 AM EST Office Visit Gynecology/Obstetrics [facility] [address] [place], [place] [address] Oriana Watt CRNP [address] [place] [address] 03/29/2023 4:30 PM EST Office Visit Gynecology/Obstetrics Greg [facility] [address] [place] [address] Kay Mills PA-C [address] [place] [address] 04/12/2023 2:15 PM EST Office Visit Gynecology/Obstetrics Greg [facility] [address] [place], [place] [address] Oriana Watt CRNP [address] [place] [address] Health Maintenance Due Date Last Done Comments [...] filedocumented as of this encounter Care Teams Cable Operator Relationship Specialty Start Date End Date Sortor Catalina Gaspar MD [address] [address] PCP - General 12/08/02 documented as of this encounter
--- OUTSIDE RECORDS SUMMARY | 2023-05-28 14:52 | External Medical Summary | Summary of Care ---
Author Name Unknown Organization [facility] Address [address] [place] [address] Phone [phone] Care Team Providers Care Landing Support Specialist Name Role Phone Sortor Catalina Gaspar MD Primary Care Pro vider Reason for Visit * Reason Comments Return Visit Encounter Details Date Type Department Care Team (Late st Contact Info) Description 01/28/2023 10:15 AM EST Office Visit Gynecology/Obstetric s [facility] [address] [place] [address] Oriana Watt CRNP [address] [place] [address] Supervision of other normal , antepartum*; H/O section; History of premature rupture of membranes (PPROM); Encounter for follow-up ultrasound of anatomy Allergies No known active allergiesdocumented as of this encounter (statuses as of 01/28/2023) Medications Medication Sig Dispensed Refills Start Date End Date Status 19 29-1 MG Oral Tablet Take 1 Tablet by mouth in the morning. 0 Active Breast Pump Dispense double electric breast pump. Dx Z39.1 1 Each 0 08/28/2020 Active documented as of this encounter (statuses as of 01/28/2023) Active Problems Problem Noted Date Diagnosed Date Supervision of other normal , antepartu m 10/23/2022 H/O section 10/23/2022 Overview: C/s for breech delivery History of premature rupture of membrane s (PPROM) 10/23/2022 Overview: PPROM at 36w Estimated Date of Delivery Comme nts Yes 06/03/2023 Based on last me nstrual period of 08/27/2022 documented as of this encounter (statuses as of 01/28/2023) Resolved Problems Problem Noted Date Diagnosed Date [...] as of this encounter (statuses as of 01/28/2023) Immunizations Name Administration Dates Next Due TDAP (age 10 and older)(Boostrix) 08/12/2020 documented as of this encounter Social History Tobacco Use Types Packs/Day Years Used Date Smoking Tobacco: Never Smokeless Tobacco: Never Alcohol Use Standard Drinks/Week Comments Not Currently 0 (1 standard drink = 0.6 oz pur e alcohol) Hunger Vital Sign Answer Date Recorded Within the past 12 months, y ou worried that your food would run out before you got the money to buy more. Never true 01/28/20 23 Within the past 12 months, t he food you bought just didn't last and you didn't have money to get more. Never true 01/27/2023 [place] Depression Scale Answer Date Recorded [place] Depression Scale Total 2 11/20/2020 The thought [...] Reading Time Taken Comments Blood Pressure 100/60 01/28/2023 10:08 AM EST Pulse - - Temperature - - Respiratory Rate - - Oxygen Saturation - - Inhaled Oxygen Concentration - - Weight 93.6 kg (206 lb 6.4 oz) 01/28/2023 10:08 AM EST Height 167.6 cm (5' 6") 01/28/2023 10:08 AM EST Body Mass Index 33.31 01/28/2023 10:08 AM EST documented in this encounter Progress Notes * Oriana Watt CRNP - 01/28/2023 10:54 AM EST 22w0d Complaints: none. Migraine cocktail helping a lot. Feeling well. Good FM. No contractions, bleeding, or LOF. Anatomy u/s today, needs f/u in 2 weeks. ZENAIDA Hay * Zuleyka Ferguson LPN - 01/28/2023 10:08 AM EST 22w0d Pt denies any concerns. documented in this encounter Plan of Treatment Upcoming Encounters Date Type Department Care Team (Late st Contact Info) Description 02/16/2023 8:45 AM EST Office Visit Gynecology/Obstetrics [facility] [address] [place] [address] BackerYashira CRNP [address] [place] [address] 02/16/2023 9:30 AM EST Imaging Radiology [facility] [place] [address] 03/16/2023 8:00 AM EST Office Visit Gynecology/Obstetrics [facility] [address] [place] [address] Oriana Watt CRNP [address] [place] [address] 03/29/2023 4:30 PM EST Office Visit Gynecology/Obstetrics [facility] [address] [place], [place] [address] Kay Mills PA-C [address] [place] [address] 04/12/2023 2:15 PM EST Office Visit Gynecology/Obstetrics [facility] [address] [place] [address] Oriana Watt CRNP [address] [place] [address] Scheduled Orders Name Type Priority Associated Diagnoses Orde r Schedule US PREG LIMITED 1 OR MORE FETUSES Medical Imaging Routine Encounter for follow-up ultrasound of anatomy Expected: 02/11/2023 (Approximate), Expires: 02/28/2024 Health Maintenance Due Date Last Done Comments [...] anatomy documented in this encounter Care Teams Landing Support Specialist Relationship Specialty Start Date End Date Sortor Catalina Gaspar MD [address] [facility] [address] [place] [address] PCP - General 12/08/02 documented as of this encounter
--- OUTSIDE RECORDS SUMMARY | 2023-05-28 14:52 | External Medical Summary ---
Author Name Unknown Address Unknown Organization [id number]:[place] [facility] [place] [facility] [address] [place] [address] Laboratory Report Ordering Provider Test Date Status MOLLYBACKER 03/16/2023 08:47:33 Final Observation Date Value Abnormality Reference (Units ) Status WBC, Total 03/16/2023 08:47:33 12.79 Above high normal 4 .00-10.80 (K/uL) Final RBC 03/16/2023 08:47:33 3.64 3.85-5.15 (M/uL) Final Hemoglobin 03/16/2023 08:47:33 11.9 Below low normal 12 .0-15.3 (g/dL) Final Anemia reflex testing trigge rs on a HGB < 12.0 for Females and HGB < 13.0 for Males in accordance with the WHO Anemia Guidelines
Anemia reflex testing triggers on a HGB < 12.0 for Females and HGB < 13.0 for Males in accordance with the WHO Anemia Guidelines HCT 03/16/2023 08:47:33 36.2 36.0-45.2 (%) Final MCV 03/16/2023 08:47:33 99.5 81.5-97.5 (fL) Final MCH 03/16/2023 08:47:33 32.7 27.0-34.0 (pg) Final MCHC 03/16/2023 08:47:33 32.9 32.0-36.0 (g/dL) Final RDW 03/16/2023 08:47:33 13.5 11.5-15.5 (%) Final Platelets 03/16/2023 08:47:33 257 140-400 (K /uL) Final MPV 03/16/2023 08:47:33 9.4 6.6-11.1 ( fL) Final Nucleated erythrocytes/100 leukocytes [Ratio] in Blood by Automated count 03/16/2023 08:47:33 0 <=0 (/100 WBCs) [facility] Performing Location LAB[facility]ATORY [facility] [place] [address] [facility] [address]
--- OUTSIDE RECORDS SUMMARY | 2023-05-28 14:52 | External Medical Summary | Summary of Care ---
Author Name Unknown Organization [facility] Address [address] [place] [address] Phone [phone] Care Team Providers Care Chemical Tester Name Role Phone Sortor Catalina Gaspar MD Primary Care Pro vider Reason for Visit * Reason Comments Return Visit Encounter Details Date Type Department Care Team Description 12/22/2022 Office Visit Gynecology/Obstetrics [facility] [address] [place] [address] Oriana Watt CRNP [address] [place] [address] Supervision of other normal , antepartum*; H/O [...] Sign Reading Time Taken Comments Blood Pressure 102/62 12/22/2022 8:09 AM EDT Pulse - - Temperature - - Respiratory Rate - - Oxygen Saturation - - Inhaled Oxygen Concentration - - Weight 92.1 kg (203 lb) 12/22/2022 8:09 AM EDT Height - - Body Mass Index 32.77 11/24/2022 7:49 AM EDT documented in this encounter Progress Notes * ZENAIDA Hay - 12/22/2022 8:44 AM EDT 16w5d Having some headaches, gave headache cocktail. No other concerns. Discussed vaginal progesterone, daughter born at 36w4d. She politely declines. Low risk Qnatal, MSAFP today. Feeling some quickening. Anatomy u/s with next visit. * Billie Fatima LPN - 12/22/2022 8:09 AM EDT 16w5d Denies vaginal bleeding/rom + movement Having some IBARRA- Tylenol does not always help No new concerns Declines flu documented in this encounter Plan of Treatment Upcoming Encounters Date Type Specialty Care Team Description 01/28/2023 Imaging Radiology 01/28/2023 Office Visit Gynecology Obstetrics Oriana Watt CRNP [address] [place] [address] Pending Results Name Type Priority Associated Diagnoses Date /Time MATERNAL SERUM AFP Lab Routine Supervision of other normal , antepartum 12/22/2022 8:53 AM EDT Scheduled Orders Name Type Priority Associated Diagnoses Orde r Schedule US PREG SINGLE/1ST GEST, 14 WEEKS OR LATER Medical Imaging Routine Supervision of other normal , antepartum Expected: 01/22/2023 (Approximate), Expires: 01/23/2024 Health Maintenance Due Date Last Done Comments [...] History of premature rupture of membranes (PPROM) documented in this encounter Care Teams Chemical Tester Relationship Specialty Start Date End Date Sortor Catalina Gaspar MD [address] [facility] [address] [place] [address] PCP - General 12/08/02 documented as of this encounter
--- OUTSIDE RECORDS SUMMARY | 2023-05-28 14:52 | External Medical Summary | Summary of Care ---
Author Name Unknown Organization [facility] Address [address] [place] [address] Phone [phone] Care Team Providers Care Manager Hospice Name Role Phone Sortor Catalina Gaspar MD Primary Care Pro vider Reason for Visit * Reason Comments Outpatient Testing Encounter Details Date Type Department Care Team (Late st Contact Info) Description 03/16/2023 7:20 AM EST Laboratory Laboratory, [facility] [id number] [facility] [address] [place] [address] Supervision of other normal , antepartum Allergies No known active allergiesdocumented as of [...] money to get more. Never true 01/27/2023 [place] Depression Scale Answer Date Recorded [place] Depression Scale Total 4 03/16/2023 The thought [...] Office Visit Gynecology/Obstetrics [facility] [address] [place] [address] Kay Mills PA-C [address] [place] [address] 04/12/2023 2:15 PM EST Office Visit Gynecology/Obstetrics [facility] [address] [place] [address] Oriana Watt CRNP [address] [place] [address] Pending Results Name Type Priority Associated Diagnoses Date /Time 50-G GESTATIONAL GLUCOSE, 1 HOUR Lab Routine Supervision of other normal , antepartum 03/16/2023 8:47 AM EST CBC WITH WBC DIFFERENTIAL AND ANEMIA REFLEX WORKUP Lab Routine Supervision of other normal , antepartum 03/16/2023 8:47 AM EST SYPHILIS ANTIBODY SCREEN WITH REFLEX TO RPR Lab Routine Supervision of other normal , antepartum 03/16/2023 8:47 AM EST ANEMIA CBC Lab Routine Supervision of other normal , antepartum 03/16/2023 8:47 AM EST DIFFERENTIAL, AUTOMATED Lab Routine Supervision of other normal , antepartum 03/16/2023 8:47 AM EST ANEMIA REFLEX CHEMISTRY HOLD Lab Routine Supervision of other normal , antepartum 03/16/2023 8:47 AM EST SYPHILIS ANTIBODY SCREEN Lab Routine Supervision of other normal , antepartum 03/16/2023 8:47 AM EST Health Maintenance Due Date Last [...] Diagnoses Diagnosis Supervision of other normal , antepartum documented in this encounter Care Teams Manager Hospice Relationship Specialty Start Date End Date Sortor Catalina Gaspar MD [address] [address] PCP - General 12/08/02 documented as of this encounter
--- OUTSIDE RECORDS SUMMARY | 2023-05-28 14:52 | External Medical Summary ---
Author Name Unknown Address Unknown Organization K01:LABORATORY [facility] [place] - [address] [place] [address] Laboratory Report Ordering Provider Test Date Status MOLLYBACKER 03/16/2023 08:47:33 Final Observation Date Value Abnormality Reference (Units ) Status Retic, % (auto) 03/16/2023 08:47:33 2.91 Above high normal 0.80-1.90 (%) Final Reticulocytes, Absolute 03/16/2023 08:47:33 105.3 Above high normal 31.3-100.1 (K/uL) Final Reticulocyte fraction, immature 03/16/2023 08:47:33 32.1 Above high normal 2.5-20.6 (%) Final Reticulocyte HGB 03/16/2023 08:47:33 36.3 29.7-37.4 (pg) Final Performing Location LABORATORY [facility] [place] - [address] [place] [address]
--- OUTSIDE RECORDS SUMMARY | 2023-05-28 14:52 | External Medical Summary ---
Author Name Unknown Address Unknown Organization [id number]:LABORATORY [facility] [place] [place] - [facility] [address] [place] [address] Laboratory Report Ordering Provider Test Date Status ELEUTERIO BARNES 03/16/2023 08:47:33 Final Observation Date Value Abnormality Reference (Units ) Status Creatinine 03/16/2023 08:47:33 0.5 0.5-1.0 (mg/dL) Final Glomerular filtration rate/1.73 sq M.predicted [Volume Rate/Area] in Serum, Plasma or Blood by Creatinine-based formula (CKD-EPI) 03/16/2023 08:47:33 >90 >=60 (mL/min) Final eGFR is calculated based on the CKD-EPI 2020 equation Performing Location LABORATORY [facility] [place] [place] - [facility] [address] [place] [address]
--- OUTSIDE RECORDS SUMMARY | 2023-05-28 14:52 | External Medical Summary ---
Author Name Unknown Address Unknown Organization [id number]:LABORATORY [facility] [place] - [address] [place] [address] Laboratory Report Ordering Provider Test Date Status MOLLYELEUTERIO 03/16/2023 08:47:33 Final Observation Date Value Abnormality Reference (Units ) Status Ferritin 03/16/2023 08:47:33 33 13-150 (ng /mL) Final Performing Location LABORATORY [facility] [place] - [address] [place] [address]
--- OUTSIDE RECORDS SUMMARY | 2023-05-28 14:52 | External Medical Summary ---
Author Name Unknown Address Unknown Organization K01:LABORATORY [facility] [place] - [address] [place] [address] Laboratory Report Ordering Provider Test Date Status GISELLE BARNESPETER 03/16/2023 08:47:33 Final Observation Date Value Abnormality Reference (Units ) Status Folic Acid 03/16/2023 08:47:33 >20.0 >4.5 (ng/ mL) Final Performing Location LABORATORY [facility] [place] - [address] [place] [address]
--- OUTSIDE RECORDS SUMMARY | 2023-05-28 14:52 | External Medical Summary | Summary of Care ---
Author Name Unknown Organization [facility] Address [address] [place] [address] Phone [phone] Care Team Providers Care Credit Rating Inspector Name Role Phone Sortor Catalina Gaspar MD Primary Care Pro vider Reason for Visit * Reason Onset Date Comments Test Results 02/16/2023 Unexpected or In determinate Result Encounter Details Date Type Department Care Team (Late st Contact Info) Description 02/16/2023 Telephone Radiology [facility] [address] [place] [address] Oriana Watt CRNP [address] [facility] [place] [address] Test Results (Unexpected or Indeterminate ... Allergies [...] money to get more. Never true 01/27/2023 [place] Depression Scale Answer Date Recorded [place] Depression Scale Total 2 11/20/2020 The thought [...] unexpected or indeterminate finding on Nikita Dang ([id number]) and asks that you review the following report. Study Type:US PREG LIMITED 1 OR MORE FETUSES Date of Study: 02/16/2023 Please respond to this encounter to acknowledge receipt of this message and take responsibility to ensure this report is reviewed. Thank you, JAYSHREE Villar Client Service Rep Diagnostic Medicine [place] IMPRESSION Generous caliber left renal pelvis up to 4 mm, recommend follow-up in 3rd trimester. Kidneys and spine otherwise unremarkable. documented in this encounter Plan of Treatment Upcoming Encounters Date Type Department Care Team (Late st Contact Info) Description 03/16/2023 7:20 AM EST Laboratory [facility] [address] [facility] [place] [phone] [place] alm[facility] 132 [facility] [place] [address] 03/16/2023 8:00 AM EST Office Visit Gynecology/Obstetrics [facility] [place] [address] Oriana Watt CRNP [address] [place] [address] 03/29/2023 4:30 PM EST Office Visit Gynecology/Obstetrics [facility] [address] [place] [address] Kay Mills PA-C [address] [place] [address] 04/12/2023 2:15 PM EST Office Visit Gynecology/Obstetrics [facility] [address] [place] [address] Oriana Watt CRNP [address] [place] [address] Health Maintenance Due Date Last Done Comments [...] filedocumented as of this encounter Care Teams Credit Rating Inspector Relationship Specialty Start Date End Date Sortor Catalina Gaspar MD [address] [facility] [address] [place] [address] PCP - General 12/08/02 documented as of this encounter
--- OUTSIDE RECORDS SUMMARY | 2023-05-28 14:52 | External Medical Summary | Summary of Care ---
Author Name Unknown Organization [facility] Address [address] [place] [address] Phone [phone] Care Team Providers Care Economics Instructor Name Role Phone Sortor Catalina Gaspar MD Primary Care Pro vider Reason for Visit * Reason Onset Date Comments Test Results 02/16/2023 Unexpected or In determinate Result Encounter Details Date Type Department Care Team (Late st Contact Info) Description 02/16/2023 Telephone Radiology [facility] [address] [place] [address] Oriana Watt CRNP [address] [place] [address] Test Results (Unexpected or Indeterminate ... Allergies [...] money to get more. Never true 01/27/2023 [place] Depression Scale Answer Date Recorded [place] Depression Scale Total 2 11/20/2020 The thought [...] have Oriana review. * Telephone Encounter - Alnia Rogers OSA - 02/16/2023 3:47 PM EST Hello- The radiologist discovered an unexpected or indeterminate finding on Nikita [place] Dang ([id number]) and asks that you review the following report. Study Type:US PREG LIMITED 1 OR MORE FETUSES Date of Study: 02/16/2023 Please respond to this encounter to acknowledge receipt of this message and take responsibility to ensure this report is reviewed. Thank you, JAYSHREE Villar Client Service Rep [facility] Medicine [place] IMPRESSION Generous caliber left renal pelvis up to 4 mm, recommend follow-up in 3rd trimester. Kidneys and spine otherwise unremarkable. documented in this encounter Plan of Treatment Upcoming Encounters Date Type Department Care Team (Late st Contact Info) Description 03/16/2023 7:20 AM EST Laboratory [facility] [address] [place] [phone] [facility] [address] [facility] [place] [address] 03/16/2023 8:00 AM EST Office Visit Gynecology/Obstetrics [facility] [address] [place] [address] Oriana Watt CRNP [address] [place] [address] 03/29/2023 4:30 PM EST Office Visit Gynecology/Obstetrics [facility] [address] [place] [address] Kay Mills PA-C [address] [place] [address] 04/12/2023 2:15 PM EST Office Visit Gynecology/Obstetrics [facility] [address] [place] [address] Oriana Watt CRNP [address] [place] [address] Health Maintenance Due Date Last Done Comments [...] filedocumented as of this encounter Care Teams Economics Instructor Relationship Specialty Start Date End Date Catalina Piña MD [address] [facility] [address] [place] [address] PCP - General 12/08/02 documented as of this encounter
--- OUTSIDE RECORDS SUMMARY | 2023-05-28 14:52 | External Medical Summary ---
Author Name Unknown Address Unknown Organization K01:LABORATORY [facility] - [address] [place] [address] Laboratory Report Ordering Provider Test Date Status MOLLYBACKER 03/16/2023 08:47:33 Final Observation Date Value Abnormality Reference (Units ) Status SYNC LEUKOCYTES IN BLOOD BY AUTOMATED COUNT 03/16/2023 08:47:33 12.79 Above high normal 4.00-10.80 (K/uL) Final Segs 03/16/2023 08:47:33 73.5 40.0-75.0 (%) Final Lymphs % 03/16/2023 08:47:33 20.6 18.0-42.0 (%) Final Monos 03/16/2023 08:47:33 3.6 1.0-11.0 (%) Final Eosinophils 03/16/2023 08:47:33 1.4 0.0-6.0 (%) Final Basos 03/16/2023 08:47:33 0.2 0.0-2.0 (%) Final Immature Granulocyte, Percent 03/16/2023 08:47:33 0.7 0.0-2.0 (%) Final Absolute Segs 03/16/2023 08:47:33 9.39 Above high normal 1.80-7.70 (K/uL) Final Lymphs, absolute 03/16/2023 08:47:33 2.64 1.00-4.80 (K/ul) Final Monos, Abs 03/16/2023 08:47:33 0.46 0.00-1.10 (K/uL) Final Eos, Abs 03/16/2023 08:47:33 0.18 0.00-0.70 (K/uL) Final Basos, Abs 03/16/2023 08:47:33 0.03 0.00-0.20 (K/uL) Final Immature Granulocytes, Number 03/16/2023 08:47:33 0.09 0.00-0.20 (K/uL) Final Performing Location [place] [facility] [place] [address] [facility] [address]
--- OUTSIDE RECORDS SUMMARY | 2023-05-28 14:52 | External Medical Summary ---
Author Name Unknown Address Unknown Organization K01:LABORATORY [facility] [place] - [address] [place] [address] Laboratory Report Ordering Provider Test Date Status ELEUTERIO BARNES 03/16/2023 08:47:33 Final Observation Date Value Abnormality Reference (Units ) Status Glucose [Moles/volume] in Serum or Plasma --1 hour post 50 g glucose PO 03/16/2023 08:47:33 158 Above high normal 70-129 (mg/dL) Final Performing Location LABORATORY [facility] [place] - [address] [place] [address]
[2023-05-28] MEDS: KETOROLAC 30 MG/ML VIAL IV PRN (18:24)
[2023-05-28] MEDS ORDERED: KETOROLAC 30 MG/ML VIAL IV PRN (20:15)
[2023-05-28] MEDS ORDERED: PROMETHAZINE HCL 25 MG in SODIUM CHLORIDE 0.9% 50 ML IV PRN (20:15)
[2023-05-28] MEDS ORDERED: diphenhydrAMINE Capsule 25 MG CAP PO PRN (20:15)
[2023-05-28] MEDS ORDERED: oxyCODONE/ACETAMINOPHEN 5mg/325mg TAB PO PRN (20:15)
[2023-05-29] MEDS: IBUPROFEN 600 MG TAB PO PRN (02:34)
[2023-05-29 06:24] LABS: Basophils # (auto) 0.02 K/uL (0.00-0.20); Basophils % (auto) 0.2 %; Eosinophils # (auto) 0.25 K/uL (0.00-0.50); Hematocrit (blood only) 33.1 % (37.0-47.0); Hemoglobin 11.4 g/dl (12.0-16.0); Immature Granulocytes # (auto) 0.07 K/uL (0.01-0.20); Immature Granulocytes % (auto) 0.6 %; Lymphocytes # (auto) 2.04 K/uL (1.20-3.40); Lymphocytes % (auto) 16.2 %; Mean Corpuscular Hemoglobin 32.1 pg (25.0-34.0); Mean Corpuscular Hgb Conc 34.4 g/dL (32.0-36.0); Mean Corpuscular Volume 93.2 fL (80.0-100.0); Mean Platelet Volume 9.6 fL (9.4-12.4); Monocytes # (auto) 0.81 K/uL (0.11-0.59); Monocytes % (auto) 6.4 %; Neutrophils # (auto) 9.38 K/uL (1.40-6.50); Neutrophils % (auto) 74.6 %; Platelet Count 195 K/uL (130-400); RDW Coefficient of Variation 13.5 % (11.5-14.5); RDW Standard Deviation 46.2 fL (36.4-46.3); Red Blood Count 3.55 M/uL (4.20-5.40); White Blood Count 12.57 K/ul (4.8-10.8)
--- NOTE | 2023-05-29 07:42 | Obstetrical Progress Note ---
Date of Service May 29, 2023 Assessment & Plan (1) Normal course: Continue routine care Discussed safe sleep ABCs Anticipate discharge home tomorrow if baby is discharged Patient and father the baby voiced understanding and agreement with the plan. All questions were answered and the room Subjective Ambulation: ambulating normally Voiding: no voiding problems Passing Gas:: Yes Diet Tolerance:: regular diet Lochia:: Small Current Pain Level(1-10): 0 Patient doing well, ambulating normally, denies any issues or complaints. Bonding well with baby, father of baby in room with patient Physical Exam Constitutional WD/WN, vitals as above Respiratory normal respiratory effort, lungs clear to auscultation Cardiovascular RRR, no murmur, no edema Gastrointestinal (Abdomen) normal bowel sounds, soft, nontender, no hepatosplenomegaly Fundus is below umbilicus, incision is covered with pressure bandage, clean and dry Results & Data Vital Signs (Past 12 Hours) Vital Signs Temp Pulse Resp BP Pulse Ox O2 Del Method 05/29/23 02:25 36.7 C 85 18 101/68 95 Room Air 05/28/23 23:45 Room Air 05/28/23 23:04 36.7 C 77 18 97/64 L 96 Room Air 05/28/23 19:50 16 99
[2023-05-29] MEDS: bisacodyL 5 MG TABEC PO SCH (20:36)
[2023-05-30] MEDS ORDERED: bisacodyL 10 MG SUPP PR PRN (03:55)
[2023-05-30 06:31] LABS: Hematocrit (blood only) 30.7 % (37.0-47.0); Hemoglobin 10.3 g/dl (12.0-16.0)
--- NOTE | 2023-05-30 08:08 | Obstetrical Progress Note ---
Date of Service May 30, 2023 Assessment & Plan (1) Normal course: Continue routine care Will discharge home tomorrow if baby is discharged Will give instructions and incision check in 1 week Subjective Ambulation: ambulating normally Voiding: no voiding problems Passing Gas:: Yes Diet Tolerance:: regular diet Lochia:: Small Feeding Type:: breast feeding Current Pain Level(1-10): 0 Patient doing well and like to be discharged home today Physical Exam Constitutional WD/WN, vitals as above Respiratory normal respiratory effort, lungs clear to auscultation Cardiovascular RRR, no murmur, no edema Gastrointestinal (Abdomen) normal bowel sounds, soft, nontender, no hepatosplenomegaly Results & Data Vital Signs (Past 12 Hours) Vital Signs Temp Pulse Resp BP Pulse Ox O2 Del Method 05/29/23 23:45 36.5 C 76 16 109/72 97 Room Air 05/29/23 20:30 36.5 C 87 17 104/69 97 Room Air Laboratory Results Laboratory Results WBC 12.57 K/ul (4.8-10.8) H 05/29/23 05:55 RBC 3.55 M/uL (4.20-5.40) L 05/29/23 05:55 Hgb 10.3 g/dl (12.0-16.0) L 05/30/23 05:52 Hct 30.7 % (37.0-47.0) L 05/30/23 05:52 MCV 93.2 fL (80.0-100.0) 05/29/23 05:55 MCH 32.1 pg (25.0-34.0) 05/29/23 05:55 MCHC 34.4 g/dL (32.0-36.0) 05/29/23 05:55 RDW Std Deviation 46.2 fL (36.4-46.3) 05/29/23 05:55 RDW Coeff of Aryan 13.5 % (11.5-14.5) 05/29/23 05:55 Plt Count 195 K/uL (130-400) 05/29/23 05:55 MPV 9.6 fL (9.4-12.4) 05/29/23 05:55 Immature Gran % (Auto) 0.6 % 05/29/23 05:55 Neut % (Auto) 74.6 % 05/29/23 05:55 Lymph % (Auto) 16.2 % 05/29/23 05:55 [place] % (Auto) 6.4 % 05/29/23 05:55 Eos % (Auto) 2.0 % 05/29/23 05:55 Baso % (Auto) 0.2 % 05/29/23 05:55 Neut # (Auto) 9.38 K/uL (1.40-6.50) H 05/29/23 05:55 Lymph # (Auto) 2.04 K/uL (1.20-3.40) 05/29/23 05:55 [place] # (Auto) 0.81 K/uL (0.11-0.59) H 05/29/23 05:55 Eos # (Auto) 0.25 K/uL (0.00-0.50) 05/29/23 05:55 Baso # (Auto) 0.02 K/uL (0.00-0.20) 05/29/23 05:55 Immature Gran # (Auto) 0.07 K/uL (0.01-0.20) 05/29/23 05:55 Blood Type A Positive 05/28/23 01:16 Antibody Screen NEGATIVE 05/28/23 01:16 Crossmatch See Detail 05/28/23 01:16
== END 2023-05-30 10:25 | disposition home or self-care (01) | DRG 788 ==
LOC: OPB 00:28 → 4S1 00:32 → 4E2 06:14